=== PATIENT | male | born 1935 | race Caucasian/White ===

== ENCOUNTER 2018-05-13 09:08 | Day surgery (SDC) | payer OTHER, SELFPAY ==
[2018-05-01 09:42] VITALS: BMI 27.2
[2018-05-13] VITALS (11 sets, daily range): BP systolic 104–159; BP diastolic 60–100; PULSE 52–81; RESP 10–25; TEMP 35.9–36.4; O2SAT 93–100; BMI 27.2
--- NOTE | 2018-05-13 | DI.RAD.S_ITS ---
PROCEDURE: XR LUMBAR SPINE 1V INDICATIONS: MICRODISCECTOMY TECHNIQUE: Single views of the lumbar spine were acquired. COMPARISON: None. FINDINGS: Intraoperative spot fluoroscopic view demonstrating surgical instrument projecting in the posterior paraspinal soft tissues at the level of the L3-L4 disc space. Dictated by: Miles Menon M.D. on 05/13/2018 at 13:44 Approved by: Miles Menon M.D. on 05/13/2018 at 13:45
[2018-05-13] MEDS: LACTATED RINGERS 1,000 ML 42 ML IV (10:27)
--- NOTE | 2018-05-13 11:07 | PM.PREOP ---
Pre-operative Note Interval Note Pre-op Check: Yes History & Physical Reviewed by Physician, Yes Exam Performed and Yes History & Physical exam performed today by Physician Changes: No
[2018-05-13] MEDS: CLINDAMYCIN 900 MG/50 ML PIGGYBACK 50 MG IV (11:50)
--- NOTE | 2018-05-13 12:21 | SUR.OPER ---
Prone on spine table, head in foam head support, padded chest and pelvic supports, gel pad at knees, lower legs supported by pillows; nipples, genitalia and toes free of pressure, arms secured on foam padded arm boards at <90 degrees abduction. Tape over blanket at thigh secured to table.
[2018-05-13] MEDS: BUPIVACAINE 0.25% W/ EPI VIAL 50 ML INJ (12:41)
--- NOTE | 2018-05-13 13:05 | PM.OP.1 ---
Operative Date/Time/Diagnoses Date of procedure: 05/13/18 Time of procedure: 12:05 Pre-op diagnosis: 1. Lumbar scoliosis 2. L3-4, L4-5 spinal stenosis 3. 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 L3-4 laminectomy 2. L4-5 hemilaminectomy 3. Utilization of microsurgical technique and operating microscope Same procedure as scheduled: Yes Indications: Patient has been having chronic back pain and worsening lumbar radiculopathy. Patient failed multiple conservative management with worsening pain weakness and numbness in her lower extremity. Patient has been having difficulty performing activity of daily living. After discussing risks benefits of treatment options, patient elected proceed with surgery. Surgeon: Mansi Maher New Vehicle Sales Consultant: Jackie Dickinson Click Yes if Unassisted: No Anesthesia Type: General Operative Notes Closure Type: primary Specimen(s): none sent Estimated Blood Loss (mL): 20 Blood products transfused: none Procedure in detail: Patient was seen in the preoperative area. Risks and benefits of the surgery was discussed with the patient. Informed consent was obtained from the patient and placed in the chart. Surgical site was marked. Patient was taken to the operative room. General anesthesia was administered. Prophylactic antibiotic was given to the patient less than 30 min before the incision was made. Patient was placed into a prone position on the [place] table. Patient's back was then prepped and draped in the sterile fashion. Time-out was performed at this time. Using AP and lateral C-arm imaging the interval between L3-4, L4-5 was identified and marked on patient's back. A midline incision was made over the L3-4 L4-5 interval. The fascia was incised in line with skin incision. Dissection was made down to the level of L3 lamina using bovie and a mg. Using microsurgical technique and operating microscope, a L3 laminectomy was performed using a Kerrison rongeur, Leksell rongeur and micro pituitary. Liagamentum flavum was resected at the site of the laminotomy. Either side of the dura was exposed. Bilateral partial facetcomies was performed to further decompress the lateral recess. Attention was then turned to the L4 lamina, by performing a hemilaminectomy. Using Kerrison rongeur and a power drill half of the lamina was resected. The central canal was found to be moderately stenotic. This was decompressed fully after the hemilaminectomy was completed. Bilateral foraminotomies were performed at L4-5 level after the hemilaminectomy at L4 was completed. After the laminectomy was completed, the area medial lateral superior and inferior to the area of the laminectomy and hemilaminectomy was inspected and explored using a micro curette. No other impinging structure was identified. The wound was then irrigated with sterile normal saline. The deep fascia was closed with 1-0 Vicryl. The subcutaneous tissue was closed with 2-0 Vicryl. The skin was closed with amber. Patient tolerated the procedure well. There were no complications. Patient was transferred recovery room in stable condition. Complications: none Condition: stable Disposition: same day surgery Plan for aftercare: D/c home
--- NOTE | 2018-05-13 13:21 | SUR.PHASEI ---
Extremely restless on arrival and voicing not knowing why just that he needs to sit up or put his arm over th rail, etc. It took seven minutes to get a BP. Dr Flores present for behavior.
--- NOTE | 2018-05-13 13:29 | SUR.PHASEI ---
Given nebulized saline to help with tickle in throat and unproductive cough.
--- NOTE | 2018-05-13 14:31 | SUR.PHASEII ---
Germang cdi. Pt reported 1-2/10 surgical pain. lt foot weaker than rt. +pp x2, Lt pp weaker than lt. IV in place. Ice applied. call light within reach. Po intake provided. Family present
--- NOTE | 2018-05-13 17:48 | SUR.PREOP ---
BLE strong, except for Lt chronic foot drop. Drsg cdi. VS stable. IV d/c'd. Pt stood at the bedside, sba without difficulty. Pt discharged
== END 2018-05-13 15:40 | disposition home or self-care (01) ==
LOC: OR 09:14 → AC 13:10
PROVIDERS: PCP Internal Medicine; Visit Provider Orthopaedic Surgery Orthopaedic Surgery of the Spine
PROC: (CPT 63047; principal; 2018-05-13 11:15)
DX: M48.061 Spinal stenosis, lumbar region without neurogenic claudication (principal); M51.16 Intervertebral disc disorders with radiculopathy, lumbar region; M47.26 Other spondylosis with radiculopathy, lumbar region; Z79.01 Long term (current) use of anticoagulants; Z86.73 Personal history of transient ischemic attack (TIA), and cerebral infarction without residual deficits; M19.90 Unspecified osteoarthritis, unspecified site; Z95.0 Presence of cardiac pacemaker
CPT/HCPCS: 63047; 63030; 72020; 76000; J1100; J2405

== ENCOUNTER → 2018-06-21 15:07 | Outpatient (CLI) | payer OTHER, SELFPAY ==
--- NOTE | 2018-06-21 | DI.RAD.S_ITS ---
PROCEDURE: XR CHEST 2V INDICATIONS: PERSISTANT ATRIAL FIBRILLATION TECHNIQUE: 2 views of the chest were acquired. COMPARISON: [facility], , CHEST 1 VIEW, 05/25/2017, 0:14. [facility], , CHEST 2 VIEW, 09/29/2013, 17:19. FINDINGS: Surgical changes and devices: Cardiac pacemaking device and dual chamber leads appear stable over time. Lungs and pleura: No pleural effusions or pneumothorax. Lungs are mildly edematous. Mediastinum: Mediastinal contours are normal. Heart size is normal. Bones and chest wall: No suspicious bony abnormalities. Soft tissues appear unremarkable. IMPRESSION: Mild pulmonary edema pattern, no cardiomegaly seen. Cardiac pacemaking device and dual chamber leads appear normal, stable over time. Dictated by: Tomas Jones M.D. on 06/21/2018 at 15:45 Approved by: Tomas Jones M.D. on 06/21/2018 at 15:45
== END ==
PROVIDERS: PCP Internal Medicine; Visit Provider Internal Medicine Cardiovascular Disease
DX: I48.1 Persistent atrial fibrillation (principal); I27.20 Pulmonary hypertension, unspecified; Z95.0 Presence of cardiac pacemaker
CPT/HCPCS: 71046

== ENCOUNTER → 2018-09-05 13:50 | Outpatient (CLI) | payer OTHER, SELFPAY ==
--- NOTE | 2018-09-05 | DI.CT.S_ITS ---
PROCEDURE: CT CERVICAL SPINE WO CON INDICATIONS: CERVICAL SPINE PAIN, PULMONARY HYPERTENSION TECHNIQUE: Noncontrast 3 mm thick sections acquired from the skull base to the T4 level. Sagittal and coronal reformats were then constructed. For radiation dose reduction, the following was used: automated exposure control, adjustment of mA and/or kV according to patient size. COMPARISON: [facility] [place], [place], XR CERVICAL SPINE 2 OR 3 VIEWS, 08/30/2018, 11:32. FINDINGS: Image quality: Excellent. Bones: No fractures or dislocations. Bilateral facet arthropathy. Severe diffuse disc space narrowing primarily from C4-T1, also involving the upper thoracic spine. Moderate to severe narrowing of the C3-C4 disc space. There are endplate osteophytes and sclerosis as well as cystic change. Trace retrolisthesis of C3 on C4. Heterotopic ossification seen in the posterior paraspinal soft tissues at the level of C6. Diffuse osteopenia. Soft tissues: Prevertebral soft tissues are normal in thickness. No paravertebral hematomas. No apical pneumothoraces. There is suggestion of a subcentimeter right thyroid nodule. Bilateral carotid calcifications. IMPRESSION: Severe multilevel cervical and upper thoracic disc degeneration. Diffuse osteopenia. Multilevel facet arthropathy. Possible, poorly defined right thyroid nodule although this could be better characterized with dedicated thyroid ultrasound. Dictated by: Miles Menon M.D. on 09/05/2018 at 16:25 Approved by: Miles Menon M.D. on 09/05/2018 at 16:34
--- NOTE | 2018-09-10 15:53 | PM.PFT.1 ---
Pulmonary Function Test Referral & Results Date Patient Seen: 09/05/18 Requesting provider: Paco Kimball Indication: I27.20 Results: The spirometry demonstrates an FVC of 2.68 L which is 60% of predicted. The FEV1 was measured at 2.14 L which is 78% of predicted. The FEV1/FVC ratio was 80 which is 112% of predicted. Following the administration of bronchodilator there was no appreciable change. Lung volumes show an SVC of 2.93 L which is 67% of predicted. The diffusing capacity was measured at 13.80 which is 42% of predicted. No hemoglobin value was provided, so no correction for potential anemia could be made, if appropriate. The maximum voluntary ventilation was slightly reduced Interpretation: This study demonstrates mild obstructive lung disease without evidence of benefit following bronchodilator There is also [id number] restrictive lung disease present based on reduction lung volumes There is also a significant reduction in diffusing capacity suggesting significant disease at the capillary alveolar level Altogether this is consistent with a diagnosis of COPD
== END ==
PROVIDERS: Family Provider Internal Medicine; PCP Internal Medicine; Visit Provider Orthopaedic Surgery Orthopaedic Surgery of the Spine
DX: M50.321 Other cervical disc degeneration at C4-C5 level (principal); I27.20 Pulmonary hypertension, unspecified; J44.9 Chronic obstructive pulmonary disease, unspecified; M48.02 Spinal stenosis, cervical region; M47.812 Spondylosis without myelopathy or radiculopathy, cervical region; M85.89 Other specified disorders of bone density and structure, multiple sites
CPT/HCPCS: 72125; 94060; 94726; 94729

== ENCOUNTER 2019-10-02 10:03 | Emergency (ER) | payer OTHER, SELFPAY ==
[2019-10-02] VITALS (7 sets, daily range): BP systolic 124–164; BP diastolic 64–97; PULSE 60–95; RESP 12–24; TEMP 36.2; O2SAT 96–98; BMI 27.7
--- NOTE | 2019-10-02 10:26 | DI.RAD.S_ITS ---
PROCEDURE: XR CHEST 1V INDICATIONS: chest pain TECHNIQUE: One view of the chest was acquired. COMPARISON: [facility], CR, XR CHEST 2V, 06/21/2018, 14:49. FINDINGS: Surgical changes and devices: Dual-lead cardiac pacer Lungs and pleura: Low lung volumes with scattered subsegmental atelectasis/scarring. No pleural effusions or pneumothorax. Mediastinum: Mediastinal contours appear normal. Heart size is normal. Bones and chest wall: No suspicious bony lesions. Overlying soft tissues appear unremarkable. IMPRESSION: Low lung volumes with scattered subsegmental atelectasis/scarring. Dictated by: Miles Menon M.D. on 10/02/2019 at 11:13 Approved by: Miles Menon M.D. on 10/02/2019 at 11:15
[2019-10-02 10:39] LABS: Add Manual Diff / Slide Review NO; Basophils Absolute Auto 100 /uL (0-100); Basophils Percent Auto 1.2 % (0-2); Eosinophils Absolute Auto 200 /uL (0-450); Eosinophils Percent Auto 2.9 % (2-4); Hematocrit 41.3 % (41-53); Hemoglobin 13.9 g/dL (13.5-17.5); INR 3.1 (0.9-1.3); Lymphocytes Absolute Auto 1300 /uL (1100-4500); Lymphocytes Percent Auto 19.7 % (25-40); Mean Corpuscular HGB Conc 33.6 % (30-36); Mean Corpuscular Hemoglobin 30.6 PG (26-34); Monocytes Absolute Auto 900 /uL (0-900); Monocytes Percent Auto 13.3 % (3-14); Neutrophils Absolute Auto 4100 /uL (1500-7000); Neutrophils Percent Auto 62.9 % (50-75); Platelet Count 189 X10^3/uL (150-400); Red Blood Cell Count 4.54 X10^6/uL (4.5-5.9); White Blood Cell Count 6.5 X10^3/uL (4.5-11.0)
[2019-10-02 10:42] LABS: PTT Partial Thromboplastin Tim 49 SECONDS (26.4-36.2)
[2019-10-02 10:43] LABS: Alanine Aminotransferase 27 IU/L (<50); Albumin 4.2 g/dL (3.5-5.0); Albumin Globulin Ratio 1.4 (1.0-2.8); Alkaline Phosphatase 114 U/L (38-126); Aspartate Aminotransferase 34 IU/L (17-59); Bilirubin Total 0.7 mg/dL (0.2-1.3); Blood Urea Nitrogen 16 mg/dL (9-20); Calcium 9.6 mg/dL (8.4-10.2); Carbon Dioxide 28 mmol/L (22-32); Chloride 99 mmol/L (98-107); Creatine Kinase 22 U/L (55-170); Estimated Glomerular Filt Rate > 60.0 mL/min (>60); Glucose 113 mg/dL (80-110); HEMOLYSIS 17 (0-50); Lipase 156 U/L (23-300); Potassium 4.7 mmol/L (3.4-5.1); Sodium 135 mmol/L (137-145); Total Protein 7.2 g/dL (6.3-8.2)
[2019-10-02 10:55] LABS: NT-proBNP (BNP-Adult 18+) 2020 pg/mL (<450); Troponin I < 0.012 ng/mL (0.01-0.034)
--- NOTE | 2019-10-02 12:43 | ED.ARRPALP ---
HPI - Arrhythmia/Palpitations General Chief Complaint: Arrhythmia/Palpitations Stated Complaint: SOB/high pulse rate Time Seen by Provider: 10/02/19 12:15 Source: patient Mode of arrival: Ambulatory History of Present Illness HPI narrative: Chief complaint: Shortness of breath History of present illness: The patient is an 84-year-old male who states that he has developed progressively worsening shortness of breath and dyspnea on exertion over the past 3 months prior to admission. He states that he can become very short of breath walking up a flight of stairs. He states this morning he walked up a flight of stairs 3 different times with minimal shortness of breath then the 4th time he became acutely short of breath and did not think that he would make it to the top. He states that he has a history of atrial fibrillation and is on metoprolol to control the rapid heart rate and has a pacemaker that prevents him from going to slow. He does not have a defibrillator. He has had no palpitations. He denies a history of high blood pressure chest pain. He has had intermittent shortness of breath. He denies a history of kidney failure. He states that walking from the parking lot to the emergency department caused him to develop shortness of breath with painting. He states that his oxygen saturation never dropped below 98%. He admits to a mild stroke 8-10 years ago from his atrial fibrillation at which time he was placed on warfarin. 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 He denies a history of COPD myocardial infarction congestive heart failure hypertension or diabetes mellitus. He admits to shortness of breath but denies any cough chest pain. Periodically he has palpitations. He has never had phlebitis or pulmonary embolism. He has had no significant abdominal pain nausea vomiting diarrhea. Bowel sounds are normal. He denies any urinary symptoms at this time. Related Data Home Medications Medication Instructions Recorded Confirmed fluorouracil [Efudex] 1 barbra TOPICAL PRN PRN #0 04/30/17 05/01/18 glucosamine king 2KCl-chondroit 1 cap PO DAILY #0 04/30/17 05/01/18 [Glucosamine Sulf-Chondroitin] multivitamin [Multiple Vitamins] 1 tab PO QDAY #0 04/30/17 05/01/18 melatonin 5 mg PO QHS PRN 05/01/18 05/13/18 metoprolol succinate 50 mg PO BEDTIME 05/01/18 05/13/18 omeprazole 20 mg PO BID 05/01/18 05/13/18 warfarin [Coumadin] 5 mg PO SEEINSTR 05/01/18 05/13/18 Previous Rx's Medication Instructions Recorded hydrocodone-acetaminophen [[place]] 1 tab PO Q4-6H PRN #20 tab 05/13/18 furosemide [Lasix] 10 mg PO QAM #10 tab 10/02/19 nitroglycerin 0.3 mg SL Q5-15M PRN #25 tab 10/02/19 potassium chloride 8 meq PO DAILY #10 cap 10/02/19 Allergies Allergy/AdvReac Type Severity Reaction Status Date / Time sulfite [SULFITE] Allergy Severe from foods Verified 10/02/19 10:25 Penicillins [PENICILLINS] Allergy Mild Rash Verified 10/02/19 10:25 Review of Systems Review of Systems Narrative: The patient's review of systems were all negative except for those mentioned in the history of present illness. Patient History Medical History (Updated 10/02/19 @ 13:05 by Vj Pemberton MD) Afib (Acute) BCC (basal cell carcinoma of skin) (Acute) Bilateral lower extremity edema (Acute) Closed nondisplaced fracture of pelvis (Acute) CVA (cerebral vascular accident) (Acute) Diabetes (Acute) Easy bruisability (Acute) Fragile skin (Acute) GERD (gastroesophageal reflux disease) (Acute) Left foot drop (Acute) Mixed hyperlipidemia (Acute) Numbness (Acute) Pacemaker (Acute) Pneumonia (Acute) Scoliosis (Acute) Sleep disorder (Acute) Surgical History Hx of arthroscopy of shoulder (Acute) Hx of hernia repair (Acute) Hx of tonsillectomy (Acute) Status post bilateral cataract extraction (Acute) Social History household members: spouse Smoking Status: Never smoker alcohol intake: current Smoking Status: Never smoker alcohol intake frequency: 0-2 drinks per day Alcohol type: hard liquor Substance Use Type: does not use Exam Narrative Exam Narrative: PHYSICAL EXAM: CONSTITUTIONAL: Awake, Alert, Oriented, Coherent, Cooperative in NAD. Does not appear toxic or ill. The patient was very pleasant HEAD: AT/NC EENT: PERRL, FROM of eyes, no discharge, no nystagmus Oral mucosa is moist and pink, posterior pharynx is without erythema or exudate. NECK: Supple, no obvious JVD, Trachea is midline without stridor, SPINE: No gross deformity, no palpable tenderness of the cervical, thoracic, lumbar or sacral spine. No CVA tenderness. THORAX: No deformity, retractions, chest wall tenderness, LUNGS: Patient's breath sounds are decreased bilaterally but were clear without any inspiratory crackles wheezes or rhonchi appreciated. HEART: Irregular rhythm without an appreciable murmur. ABDOMEN: Soft, non-tender, normal bowel sounds without guarding, rebound, rigidity or palpable mass EXTREMITIES: 1+ pitting edema bilaterally with no pop calf tenderness or cyanosis. SKIN: No rash, bruising, petechiae or purpura. NEURO: Awake, alert, oriented, conversive, cranial nerves II-XII are symmetrical, moves all 4 extremities and is ambulatory Initial Vital Signs Initial Vital Signs: Vital Signs Temperature 97.2 F L 10/02/19 10:06 Pulse Rate 95 H 10/02/19 10:06 Respiratory Rate 16 10/02/19 10:06 Blood Pressure 164/97 H 10/02/19 10:06 Pulse Oximetry 98 10/02/19 10:06 Course Course Course Narrative: The patient's chest x-ray did not reveal any acute cardiopulmonary pathology or pulmonary edema. There was cardiomegaly present. The patient's BNP was elevated which can be secondary to pulmonary hypertension. The patient has mild peripheral edema which may be secondary to right-sided heart failure. The patient was advised to follow-up with his primary care physician and clothing pattern preparer for a possible echocardiogram. The patient primarily is complaining of shortness of breath and dyspnea on exertion. The patient was advised that as he checks his legs for pitting edema he will take 20 mg of Lasix and limit his fluid intake to 2 L per day. And if he has pitting edema of his legs he will take the Lasix and 20 demetris quit evidence of potassium chloride. If there is no pitting he will not take the Lasix. The patient was given a limited number of potassium and Lasix to see whether or not this helps him with his dyspnea. He was also given a prescription for nitroglycerin. He was advised to take this when he develops the shortness of breath but to be sitting down or lying down when he takes the medicine. He was advised to keep a record of the results. His dyspnea on exertion may actually be an anginal equivalent. Orders Ordered: ED Orders 10/02/19 10:15 BNP [NT-proBNP (BNP-Adult 18+)] Stat Complete Blood Count AUTO DIFF Stat Comprehensive Metabolic Panel Stat Lipase Stat Partial Thromboplastin Time Stat Prothrombin Time INR Stat Troponin & CK Cardiac Panel Stat 10/02/19 10:26 XR chest 1V Stat EKG-12 Lead Stat Vital Signs Vital signs: Vital Signs - 8 hr 10/02/19 10:06 10/02/19 11:30 10/02/19 12:00 Temperature 97.2 F L Pulse Rate 95 H 62 60 Respiratory Rate 16 12 17 Blood Pressure 164/97 H Blood Pressure [Left Arm] 130/64 134/74 Pulse Oximetry 98 98 98 MDM - Arrhythmia/Palpitations Medical Records Attestation: I reviewed the patient's medical records. Lab Data Attestation: I reviewed the patient's lab results. Result diagrams: 10/02/19 10:15 10/02/19 10:15 Labs: Lab Results 10/02/19 10/02/19 10/02/19 Range/Units 10:15 10:15 10:15 WBC 6.5 (4.5-11.0) X10^3/uL RBC 4.54 (4.5-5.9) X10^6/uL Hgb 13.9 (13.5-17.5) g/dL Hct 41.3 (41-53) % MCV 91.0 (80-100) fL MCH 30.6 (26-34) PG MCHC 33.6 (30-36) % RDW 15.0 H (11.6-14.8) % Plt Count 189 (150-400) X10^3/uL Neut % (Auto) 62.9 (50-75) % Lymph % (Auto) 19.7 L (25-40) % Hubbard % (Auto) 13.3 (3-14) % Eos % (Auto) 2.9 (2-4) % Baso % (Auto) 1.2 (0-2) % Neut # (Auto) 4100 (8582-0646) /uL Lymph # (Auto) 1300 (5640-9615) /uL Hubbard # (Auto) 900 (0-900) /uL Eos # (Auto) 200 (0-450) /uL Baso # (Auto) 100 (0-100) /uL PT 35.0 H (10.1-12.7) SECONDS INR 3.1 H (0.9-1.3) APTT 49 H (26.4-36.2) SECONDS Sodium 135 L (137-145) mmol/L Potassium 4.7 (3.4-5.1) mmol/L Chloride 99 (98-107) mmol/L Carbon Dioxide 28 (22-32) mmol/L BUN 16 (9-20) mg/dL Creatinine 1.00 (0.66-1.25) mg/dL Estimated GFR > 60.0 (>60) mL/min BUN/Creatinine Ratio 16.0 (6-22) Glucose 113 H (80-110) mg/dL Calcium 9.6 (8.4-10.2) mg/dL Total Bilirubin 0.7 (0.2-1.3) mg/dL AST 34 (17-59) IU/L ALT 27 (<50) IU/L Alkaline Phosphatase 114 (38-126) U/L Total Creatine Kinase 22 L (55-170) U/L CK-MB (CK-2) TNP CK-MB (CK-2) Rel Index TNP Troponin I < 0.012 (0.01-0.034) ng/mL NT-Pro-B Natriuret Pep 2020 H (<450) pg/mL Total Protein 7.2 (6.3-8.2) g/dL Albumin 4.2 (3.5-5.0) g/dL Globulin 3.0 (1.7-4.1) g/dL Albumin/Globulin Ratio 1.4 (1.0-2.8) Lipase 156 (23-300) U/L Urine Dip Bedside Urine Glucose Negative Bedside Urine Bilirubin - Negative Bedside Urine Ketone - Negative Urine Specific [place] 1.015 Bedside Urine Occult Blood - Negative Bedside Urine pH 6.0 Bedside Urine Protein - Negative Bedside Urine Urobilinogen - Negative Bedside Urine Nitrite - Negative Bedside Urine Leukocytes - Negative Esterase ECG Data Attestation: I personally reviewed and interpreted this ECG as follows: Interpretation: The patient's EKG obtained on October 02 at 10: 12:33 p.m. reveals a paced ventricular rhythm with a rate of 81. There are no P waves. QRS is 79 milliseconds duration. QTC is 395 milliseconds with normal axis. The patient has an occasional PVC. There are no acute diagnostic ST segment changes or T-waves. The ST and T-wave changes that are evident are secondary to the paced rhythm. Discharge Plan Departure Patient Disposition: Home Clinical Impression: Dyspnea on exertion, Mild peripheral edema Discharge Date/Time: 10/02/19 13:31 Instructions: DI for Shortness of Breath, DI for Peripheral Edema -- Bilateral Activity Restrictions/Additional Instructions: 1. When you develop acute shortness of breath while exerting yourself sit down and take a nitro tablet and see whether not her shortness of breath improves. 2. After you have been up and around and you are having increased frequency of shortness of breath and your legs pit like a pH when you press on the tibia take the tablet of Lasix as prescribed and the potassium tablet. Take the potassium tablet only when taking Lasix. Do this for the next week to 10 days and see whether not this helps her shortness of breath. If you developed chest pressure and chest pain that radiates to your neck jaw or shoulder or arm you need to be seen and re-evaluated in the emergency department. Otherwise follow-up with your clothing pattern preparer you may need to have a repeat echocardiogram performed to check the function of your heart. Prescriptions: New nitroglycerin 0.3 mg tablet, sublingual 0.3 mg SL Q5-15M PRN (Reason: chest pain) Qty: 25 RF: 0 furosemide [Lasix] 20 mg tablet 10 mg PO QAM Qty: 10 RF: 0 potassium chloride 8 mEq capsule, extended release 8 meq PO DAILY Qty: 10 RF: 0 No Action multivitamin [Multiple Vitamins] 1 EACH tablet 1 tab PO QDAY Qty: 0 RF: 0 glucosamine king 2KCl-chondroit [Glucosamine Sulf-Chondroitin] 500-400 mg Capsule 1 cap PO DAILY Qty: 0 RF: 0 fluorouracil [Efudex] 5 % cream 1 barbra Topical PRN PRN (Reason: skin cancer lesions) Qty: 0 RF: 0 warfarin [Coumadin] 3 MG tablet 5 mg PO SEEINSTR RF: 0 metoprolol succinate 50 mg Tablet Extended Release 24 Hr 50 mg PO BEDTIME RF: 0 omeprazole 20 mg Tablet,Delayed Release (Dr/Ec) 20 mg PO BID RF: 0 melatonin 5 MG tablet 5 mg PO QHS PRN (Reason: Sleep) RF: 0 hydrocodone-acetaminophen [[place]] 5-325 mg tablet 1 tab PO Q4-6H PRN (Reason: pain) Qty: 20 RF: 0 Referrals: Uli Antunez MD [Primary Care Provider] -
== END 2019-10-02 13:31 | disposition home or self-care (01) ==
PROVIDERS: Emergency Provider Emergency Medicine; Family Provider Internal Medicine; PCP Internal Medicine
DX: R06.09 Other forms of dyspnea (principal); R60.9 Edema, unspecified
CPT/HCPCS: 36415; 71045; 80053; 81003; 82550; 83690; 83880; 84484; 85025; 85610; 85730; 93005; 99284; 99285

== ENCOUNTER 2021-02-01 08:50 | Emergency (ER) | payer OTHER, SELFPAY ==
[2021-02-01] VITALS (9 sets, daily range): BP systolic 130–138; BP diastolic 70–93; PULSE 62–90; RESP 13–27; TEMP 36.5; O2SAT 97–98; BMI 27.2
--- NOTE | 2021-02-01 09:13 | ED_ITS ---
HPI - SOB/Dyspnea General Chief Complaint: Shortness of Breath/Dyspnea Stated Complaint: SOB on & off for months.Severe for 2 days Time Seen by Provider: 02/01/21 09:08 Source: patient and family () Limitations: no limitations History of Present Illness HPI Narrative: This is an 85-year-old male who comes emergency department with complaint of shortness of breath that has been slowly progressive over the last several months and then became acutely worse over the last 2 days. Patient states that he did notice that was typically just was tenderness activity but intermittently. He has noticed it has become increasing with activity. Any been today sometimes at rest. He states he noticed particularly sleeping. He does not appreciate any orthopnea but does know when he tries to rest at night he feels like he wakes up gasping for breath. He has a pulse oximeter at home she has been checking and has been 98%. He denies any chest pressure with these episodes. He denies any lightheadedness or near syncope or syncope. He denies any diaphoresis. He denies any nausea or vomiting. He does appreciate some increased swelling of bilateral lower extremities in the last 24 hours. Patient denies any abdominal pain, no issues with bowel movements or urination. He is on warfarin for atrial fibrillation, he takes metoprolol daily. He does have a pacemaker he does not believe he has any cardiac stents. He is on omeprazole. He states his Lasix was 20 mg daily and was decreased to 20 mg Sunday, Sunday and Sunday approximately 3 months ago. He has also been told 1 of his valves does not work well, he states ?it's the bottom 1? but that that has been stable. He states he has a prior hernia repair with mesh approximately 20 years ago and a prior tonsillectomy in the 1930s. No tobacco, no remote tobacco use. He d rinks 1 alcoholic drink daily. No illicit drugs. Patient's primary care is Dr. 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 Tavares. Related Data Home Medications Medication Instructions Recorded Confirmed fluorouracil [Efudex] 1 barbra TOPICAL PRN PRN #0 04/30/17 05/01/18 glucosamine king 2KCl-chondroit 1 cap PO DAILY #0 04/30/17 05/01/18 [Glucosamine Sulf-Chondroitin] multivitamin [Multiple Vitamins] 1 tab PO QDAY #0 04/30/17 05/01/18 melatonin 5 mg PO QHS PRN 05/01/18 05/13/18 metoprolol succinate 50 mg PO BEDTIME 05/01/18 05/13/18 omeprazole 20 mg PO BID 05/01/18 05/13/18 warfarin [Coumadin] 5 mg PO SEEINSTR 05/01/18 05/13/18 Previous Rx's Medication Instructions Recorded hydrocodone-acetaminophen [[place]] 1 tab PO Q4-6H PRN #20 tab 05/13/18 furosemide [Lasix] 10 mg PO QAM #10 tab 10/02/19 nitroglycerin 0.3 mg SL Q5-15M PRN #25 tab 10/02/19 potassium chloride 8 meq PO DAILY #10 cap 10/02/19 Allergies Allergy/AdvReac Type Severity Reaction Status Date / Time sulfite [SULFITE] Allergy Severe from foods Verified 02/01/21 09:08 Penicillins [PENICILLINS] Allergy Mild Rash Verified 02/01/21 09:08 Review of Systems Review of Systems ROS Unobtainable: All systems reviewed & are unremarkable except as noted in HPI and below Patient History Medical History Afib BCC (basal cell carcinoma of skin) Bilateral lower extremity edema Closed nondisplaced fracture of pelvis CVA (cerebral vascular accident) Diabetes Easy bruisability Fragile skin GERD (gastroesophageal reflux disease) Left foot drop Mixed hyperlipidemia Numbness Pacemaker Pneumonia Scoliosis Sleep disorder Surgical History Hx of arthroscopy of shoulder Hx of hernia repair Hx of tonsillectomy Status post bilateral cataract extraction Social History household members: spouse Smoking Status: Never smoker alcohol intake: current Smoking Status: Never smoker alcohol intake frequency: 0-2 drinks per day Alcohol type: hard liquor Substance Use Type: does not use Exam Narrative Exam Narrative: GENERAL: Alert and oriented x three, well-appearing elderly male in mild distress. HEENT: Head normocephalic, atraumatic, EOMI, pupils reactive, face symmetric, moist mucous membranes NECK: Supple, full range of motion CARDIOVASCULAR: Regular rate and rhythm without murmurs, rubs or gallops. Mild bilateral lower extremity edema. No JVD. RESPIRATORY: Breath sounds equal bilaterally, no wheezes rales or rhonchi. ABDOMEN: Soft, nontender. Normoactive bowel sounds all 4 quadrants. No guarding or rebound, rigidity, no mass : No CVA tenderness EXTREMITIES: Normal range of motion. Neurovascularly intact NEUROLOGICAL: Cranial nerves II through XII grossly intact. Moving all extremities SKIN: Warm, dry, no petechiae, no rashes or lesions. Initial Vital Signs Initial Vital Signs: Vital Signs Temperature 97.7 F 02/01/21 08:51 Pulse Rate 90 02/01/21 08:51 Respiratory Rate 20 02/01/21 08:51 Blood Pressure 138/70 02/01/21 08:51 Pulse Oximetry 97 02/01/21 08:51 Course Orders Ordered: ED Orders 02/01/21 10:10 Partial Thromboplastin Time Stat Prothrombin Time INR Stat Discontinued Medications Furosemide (Furosemide 40 Mg/4 Ml Vial) 40 mg IV NOW ONE Stop: 02/01/21 09:26 Last Admin: 02/01/21 09:36 Dose: 40 mg Documented by: NASH Vital Signs Vital signs: Vital Signs - 8 hr 02/01/21 11:20 Pulse Oximetry 98 MDM - SOB/Dyspnea Lab Data Attestation: I reviewed the patient's lab results. Result diagrams: 02/01/21 09:05 02/01/21 09:05 Labs: Lab Results 02/01/21 02/01/21 02/01/21 Range/Units 09:05 09:05 09:05 WBC 6.4 (4.5-11.0) X10^3/uL RBC 4.27 L (4.5-5.9) X10^6/uL Hgb 13.1 L (13.5-17.5) g/dL Hct 39.7 L (41-53) % MCV 93.2 (80-100) fL MCH 30.6 (26-34) PG MCHC 32.9 (30-36) % RDW 14.5 (11.6-14.8) % Plt Count 155 (150-400) X10^3/uL Neut % (Auto) 72.5 (50-75) % Lymph % (Auto) 11.9 L (25-40) % Davis % (Auto) 11.0 (3-14) % Eos % (Auto) 3.7 (2-4) % Baso % (Auto) 0.9 (0-2) % Neut # (Auto) 4700 (2214-8855) /uL Lymph # (Auto) 800 L (1500-6976) /uL Davis # (Auto) 700 (0-900) /uL Eos # (Auto) 200 (0-450) /uL Baso # (Auto) 100 (0-100) /uL PT (10.1-12.7) SECONDS INR (0.9-1.3) APTT (26.4-36.2) SECONDS Sodium 130 L (137-145) mmol/L Potassium 4.6 (3.4-5.1) mmol/L Chloride 98 (98-107) mmol/L Carbon Dioxide 25 (22-32) mmol/L BUN 17 (9-20) mg/dL Creatinine 0.80 (0.66-1.25) mg/dL Estimated GFR > 60.0 (>60) mL/min BUN/Creatinine Ratio 21.3 (6-22) Glucose 135 H (80-110) mg/dL Lactate 1.8 (0.7-2.1) mmol/L Calcium 9.6 (8.4-10.2) mg/dL Magnesium (1.6-2.3) mg/dL Total Bilirubin 0.9 (0.2-1.3) mg/dL AST 38 (17-59) IU/L ALT 26 (<50) IU/L Alkaline Phosphatase 120 (38-126) U/L Total Creatine Kinase (55-170) U/L CK-MB (CK-2) CK-MB (CK-2) Rel Index Troponin I (0.01-0.034) ng/mL NT-Pro-B Natriuret Pep (<450) pg/mL Total Protein 6.8 (6.3-8.2) g/dL Albumin 3.8 (3.5-5.0) g/dL Globulin 3.0 (1.7-4.1) g/dL Albumin/Globulin Ratio 1.3 (1.0-2.8) SARS-CoV-2 (PCR) (Negative) 02/01/21 02/01/21 02/01/21 Range/Units 09:05 09:05 09:33 WBC (4.5-11.0) X10^3/uL RBC (4.5-5.9) X10^6/uL Hgb (13.5-17.5) g/dL Hct (41-53) % MCV (80-100) fL MCH (26-34) PG MCHC (30-36) % RDW (11.6-14.8) % Plt Count (150-400) X10^3/uL Neut % (Auto) (50-75) % Lymph % (Auto) (25-40) % Davis % (Auto) (3-14) % Eos % (Auto) (2-4) % Baso % (Auto) (0-2) % Neut # (Auto) (7769-3642) /uL Lymph # (Auto) (5530-0959) /uL Davis # (Auto) (0-900) /uL Eos # (Auto) (0-450) /uL Baso # (Auto) (0-100) /uL PT (10.1-12.7) SECONDS INR (0.9-1.3) APTT (26.4-36.2) SECONDS Sodium (137-145) mmol/L Potassium (3.4-5.1) mmol/L Chloride (98-107) mmol/L Carbon Dioxide (22-32) mmol/L BUN (9-20) mg/dL Creatinine (0.66-1.25) mg/dL Estimated GFR (>60) mL/min BUN/Creatinine Ratio (6-22) Glucose (80-110) mg/dL Lactate (0.7-2.1) mmol/L Calcium (8.4-10.2) mg/dL Magnesium 2.2 (1.6-2.3) mg/dL Total Bilirubin (0.2-1.3) mg/dL AST (17-59) IU/L ALT (<50) IU/L Alkaline Phosphatase (38-126) U/L Total Creatine Kinase < 20 L (55-170) U/L CK-MB (CK-2) TNP CK-MB (CK-2) Rel Index TNP Troponin I < 0.012 (0.01-0.034) ng/mL NT-Pro-B Natriuret Pep 2360 H (<450) pg/mL Total Protein (6.3-8.2) g/dL Albumin (3.5-5.0) g/dL Globulin (1.7-4.1) g/dL Albumin/Globulin Ratio (1.0-2.8) SARS-CoV-2 (PCR) Negative (Negative) 02/01/21 Range/Units 10:10 WBC (4.5-11.0) X10^3/uL RBC (4.5-5.9) X10^6/uL Hgb (13.5-17.5) g/dL Hct (41-53) % MCV (80-100) fL MCH (26-34) PG MCHC (30-36) % RDW (11.6-14.8) % Plt Count (150-400) X10^3/uL Neut % (Auto) (50-75) % Lymph % (Auto) (25-40) % Davis % (Auto) (3-14) % Eos % (Auto) (2-4) % Baso % (Auto) (0-2) % Neut # (Auto) (6363-1184) /uL Lymph # (Auto) (4336-5437) /uL Davis # (Auto) (0-900) /uL Eos # (Auto) (0-450) /uL Baso # (Auto) (0-100) /uL PT 26.9 H (10.1-12.7) SECONDS INR 2.4 H (0.9-1.3) APTT 48 H (26.4-36.2) SECONDS Sodium (137-145) mmol/L Potassium (3.4-5.1) mmol/L Chloride (98-107) mmol/L Carbon Dioxide (22-32) mmol/L BUN (9-20) mg/dL Creatinine (0.66-1.25) mg/dL Estimated GFR (>60) mL/min BUN/Creatinine Ratio (6-22) Glucose (80-110) mg/dL Lactate (0.7-2.1) mmol/L Calcium (8.4-10.2) mg/dL Magnesium (1.6-2.3) mg/dL Total Bilirubin (0.2-1.3) mg/dL AST (17-59) IU/L ALT (<50) IU/L Alkaline Phosphatase (38-126) U/L Total Creatine Kinase (55-170) U/L CK-MB (CK-2) CK-MB (CK-2) Rel Index Troponin I (0.01-0.034) ng/mL NT-Pro-B Natriuret Pep (<450) pg/mL Total Protein (6.3-8.2) g/dL Albumin (3.5-5.0) g/dL Globulin (1.7-4.1) g/dL Albumin/Globulin Ratio (1.0-2.8) SARS-CoV-2 (PCR) (Negative) Imaging Data Chest x-ray: Radiologist's Impression: [place] [id number] [place] [id number] ReportSigned Patient: Ajay Garcia AMR#: [id number]: 5Acct:[id number]/Sex: 85 / MDate of Service: 02/01/21Loc: EDAccession Number: [id number] Procedure: XR chest 1V Ordering Provider: Amie Frias D.O. PROCEDURE: XR CHEST 1V INDICATIONS: sob, ? chf TECHNIQUE: One view of the chest was acquired. COMPARISON: [facility], CR, XR CHEST 2V, 06/21/2018, 14:49. [facility], CR, XR CHEST 1V, 10/02/2019, 10:29. FINDINGS: Surgical changes and devices: Left chest wall dual lead pacemaker redemonstrated with leads projecting over the right atrium and right ventricle. Lungs and pleura: There are low lung volumes. Mild pulmonary vascular prominence may reflect vascular crowding or mild edema. Linear opacities medially in the lung bases likely represent atelectasis. No pleural effusions or pneumothorax. Mediastinum: Mediastinal contours appear unchanged. Heart size is mildly enlarged. Bones and chest wall: No suspicious bony lesions. Overlying soft tissues appear unremarkable. IMPRESSION: 1. Low lung volumes with pulmonary vascular prominence which may reflect mild edema or vascular crowding. 2. Linear medial opacities in the lung bases likely represent atelectasis, but may also reflect consolidation or aspiration. Dictated by: Gilberto Horton M.D. on 02/01/2021 at 9:45 Approved by: Gilberto Horton M.D. on 02/01/2021 at 9:51 ECG Data Attestation: I personally reviewed and interpreted this ECG as follows: Prior ECG tracings: available for review Interpretation: AFib with frequent PVCs, rate of 71, QRS is 78 QTC of 436. No ST elevation depression appreciated. Patient has prior EKG from 10/02/2019. MDM Narrative Medical decision making narrative: Male with increasing shortness of breath and exertional dyspnea that has become worse and now is dyspnea even without exertion. Patient did have his Lasix decreased several months ago and noted that symptoms started somewhat around this time frame. He has also had increasing swelling in his lower extremities. Patient does have a cardiac history. He has a pacemaker which appears to be affective today with no obvious acute changes. Troponin is negative but BNP is elevated in the 2000 range. And chest x-ray does show changes consistent with pulmonary. Anemic but without any major changes his hemoglobin is 13. INR is therapeutic at 2.4. Hyponatremia but no other electrolyte abnormalities with normal renal function. Patient's vitals are stable here in the department he was given a dose of Lasix. On ambulatory pulse ox is 98%. Patient did have some good urine output. Plan increase his Lasix to mg daily for the next 5 days. Him follow up with his primary care or research greenhouse supervisor for recheck and possibly echo. Discussed all these findings with the patient and his all questions were answered. Discharge Plan Departure Patient Disposition: Home Clinical Impression: CHF (congestive heart failure) Instructions: DI for Heart Failure Activity Restrictions/Additional Instructions: Follow up with your physician or research greenhouse supervisor in the next 2-3 days for recheck. Call for an appointment today. Increase your lasix to 40mg daily (2 tabs) x 5 days. I would take an extra potassium pill daily for the next five days. You may continue your home medications as prescribed. Your labs, examination and history today reflect changes consistent with congestive heart failure and fluid overload. I would discuss with your physician you may need to have a repeat ECHO or ultrasound of your heart to check the function. Please return for worsening shortness of breath, new chest pain or pressure, lightheadedness or passing out, fevers greater 100.4 F coughing up blood or productive sputum, worsening swelling in her extremities or other new or concerning symptoms. Prescriptions: No Action multivitamin [Multiple Vitamins] 1 EACH tablet 1 tab PO QDAY Qty: 0 RF: 0 glucosamine king 2KCl-chondroit [Glucosamine Sulf-Chondroitin] 500-400 mg Capsule 1 cap PO DAILY Qty: 0 RF: 0 fluorouracil [Efudex] 5 % cream 1 barbra Topical PRN PRN (Reason: skin cancer lesions) Qty: 0 RF: 0 warfarin [Coumadin] 3 MG tablet 5 mg PO SEEINSTR RF: 0 metoprolol succinate 50 mg Tablet Extended Release 24 Hr 50 mg PO BEDTIME RF: 0 omeprazole 20 mg Tablet,Delayed Release (Dr/Ec) 20 mg PO BID RF: 0 melatonin 5 MG tablet 5 mg PO QHS PRN (Reason: Sleep) RF: 0 hydrocodone-acetaminophen [[place]] 5-325 mg tablet 1 tab PO Q4-6H PRN (Reason: pain) Qty: 20 RF: 0 nitroglycerin 0.3 mg tablet, sublingual 0.3 mg SL Q5-15M PRN (Reason: chest pain) Qty: 25 RF: 0 furosemide [Lasix] 20 mg tablet 10 mg PO QAM Qty: 10 RF: 0 potassium chloride 8 mEq capsule, extended release 8 meq PO DAILY Qty: 10 RF: 0 Referrals: Uli Antunez MD [Primary Care Provider] -
[2021-02-01 09:22] LABS: Add Manual Diff / Slide Review NO; Basophils Absolute Auto 100 /uL (0-100); Basophils Percent Auto 0.9 % (0-2); Eosinophils Absolute Auto 200 /uL (0-450); Eosinophils Percent Auto 3.7 % (2-4); Hematocrit 39.7 % (41-53); Hemoglobin 13.1 g/dL (13.5-17.5); Lymphocytes Absolute Auto 800 /uL (1100-4500); Lymphocytes Percent Auto 11.9 % (25-40); Mean Corpuscular HGB Conc 32.9 % (30-36); Mean Corpuscular Hemoglobin 30.6 PG (26-34); Mean Corpuscular Volume 93.2 fL (80-100); Monocytes Absolute Auto 700 /uL (0-900); Neutrophils Absolute Auto 4700 /uL (1500-7000); Neutrophils Percent Auto 72.5 % (50-75); Platelet Count 155 X10^3/uL (150-400); Red Blood Cell Count 4.27 X10^6/uL (4.5-5.9); Red Cell Distribution Width 14.5 % (11.6-14.8); White Blood Cell Count 6.4 X10^3/uL (4.5-11.0)
--- NOTE | 2021-02-01 09:26 | DI.RAD.S_ITS ---
PROCEDURE: XR CHEST 1V INDICATIONS: sob, ? chf TECHNIQUE: One view of the chest was acquired. COMPARISON: [facility], CR, XR CHEST 2V, 06/21/2018, 14:49. [facility], CR, XR CHEST 1V, 10/02/2019, 10:29. FINDINGS: Surgical changes and devices: Left chest wall dual lead pacemaker redemonstrated with leads projecting over the right atrium and right ventricle. Lungs and pleura: There are low lung volumes. Mild pulmonary vascular prominence may reflect vascular crowding or mild edema. Linear opacities medially in the lung bases likely represent atelectasis. No pleural effusions or pneumothorax. Mediastinum: Mediastinal contours appear unchanged. Heart size is mildly enlarged. Bones and chest wall: No suspicious bony lesions. Overlying soft tissues appear unremarkable. IMPRESSION: 1. Low lung volumes with pulmonary vascular prominence which may reflect mild edema or vascular crowding. 2. Linear medial opacities in the lung bases likely represent atelectasis, but may also reflect consolidation or aspiration. Dictated by: Gilberto Horton M.D. on 02/01/2021 at 9:45 Approved by: Gilberto Horton M.D. on 02/01/2021 at 9:51
[2021-02-01 09:28] LABS: Lactate (Lactic Acid) 1.8 mmol/L (0.7-2.1)
[2021-02-01 09:29] LABS: Alanine Aminotransferase 26 IU/L (<50); Albumin 3.8 g/dL (3.5-5.0); Albumin Globulin Ratio 1.3 (1.0-2.8); Alkaline Phosphatase 120 U/L (38-126); Aspartate Aminotransferase 38 IU/L (17-59); BUN Creatinine Ratio 21.3 (6-22); Bilirubin Total 0.9 mg/dL (0.2-1.3); Blood Urea Nitrogen 17 mg/dL (9-20); Calcium 9.6 mg/dL (8.4-10.2); Carbon Dioxide 25 mmol/L (22-32); Chloride 98 mmol/L (98-107); Estimated Glomerular Filt Rate > 60.0 mL/min (>60); Glucose 135 mg/dL (80-110); HEMOLYSIS < 15 (0-50); Potassium 4.6 mmol/L (3.4-5.1); Sodium 130 mmol/L (137-145); Total Protein 6.8 g/dL (6.3-8.2)
[2021-02-01] MEDS: FUROSEMIDE 40 MG/4 ML VIAL IV (09:36)
[2021-02-01 09:38] LABS: NT-proBNP (BNP-Adult 18+) 2360 pg/mL (<450)
[2021-02-01 09:52] LABS: Creatine Kinase < 20 U/L (55-170); Magnesium 2.2 mg/dL (1.6-2.3)
[2021-02-01 10:00] LABS: COVID19 -Nasal RAPID Negative (Negative)
[2021-02-01 10:05] LABS: Troponin I < 0.012 ng/mL (0.01-0.034)
[2021-02-01 10:28] LABS: INR 2.4 (0.9-1.3); Prothrombin Time 26.9 SECONDS (10.1-12.7)
[2021-02-01 10:30] LABS: PTT Partial Thromboplastin Tim 48 SECONDS (26.4-36.2)
== END 2021-02-01 11:47 | disposition home or self-care (01) ==
PROVIDERS: Emergency Provider Emergency Medicine; Family Provider Internal Medicine; PCP Internal Medicine
DX: I50.9 Heart failure, unspecified (principal); R06.00 Dyspnea, unspecified; M79.89 Other specified soft tissue disorders; Z79.01 Long term (current) use of anticoagulants; Z95.0 Presence of cardiac pacemaker; Z20.822 Contact with and (suspected) exposure to COVID-19
CPT/HCPCS: 36415; 71045; 80053; 82550; 83605; 83735; 83880; 84484; 85025; 85610; 85730; 87635; 93005; 93010; 96374; 99283; 99284; C9803; J1940

== ENCOUNTER 2021-02-06 02:38 | Emergency (ER) | payer OTHER, SELFPAY ==
[2021-02-06 02:45] VITALS: BP 140/76; PULSE 88; RESP 16; TEMP 36.6; O2SAT 97
--- NOTE | 2021-02-06 02:57 | DI.RAD.S_ITS ---
PROCEDURE: XR CHEST 1V INDICATIONS: short of breath TECHNIQUE: One view of the chest was acquired. COMPARISON: [facility], CR, XR CHEST 1V, 10/02/2019, 10:29. [facility], CR, XR CHEST 1V, 02/01/2021, 9:37. FINDINGS: Surgical changes and devices: Pacer Lungs and pleura: Unchanged findings. Low lung volumes with patchy bibasilar atelectasis. No pleural effusions or pneumothorax. Mediastinum: Mediastinal contours appear normal. Heart size is normal. Bones and chest wall: No suspicious bony lesions. Overlying soft tissues appear unremarkable. IMPRESSION: Low lung volumes with patchy bibasilar atelectasis. Comment: Final report is concordant with preliminary interpretation provided by [facility]. Dictated by: Elieser Steen M.D. on 02/06/2021 at 6:34 Approved by: Elieser Steen M.D. on 02/06/2021 at 6:35
[2021-02-06 03:13] LABS: Add Manual Diff / Slide Review NO; Basophils Absolute Auto 100 /uL (0-100); Basophils Percent Auto 1.6 % (0-2); Eosinophils Absolute Auto 400 /uL (0-450); Eosinophils Percent Auto 4.9 % (2-4); Hematocrit 43.6 % (41-53); Hemoglobin 14.4 g/dL (13.5-17.5); Lymphocytes Absolute Auto 1700 /uL (1100-4500); Lymphocytes Percent Auto 23.4 % (25-40); Mean Corpuscular HGB Conc 32.9 % (30-36); Mean Corpuscular Hemoglobin 30.3 PG (26-34); Mean Corpuscular Volume 92.2 fL (80-100); Monocytes Absolute Auto 900 /uL (0-900); Monocytes Percent Auto 12.1 % (3-14); Neutrophils Absolute Auto 4200 /uL (1500-7000); Platelet Count 188 X10^3/uL (150-400); Red Blood Cell Count 4.73 X10^6/uL (4.5-5.9); Red Cell Distribution Width 14.3 % (11.6-14.8); White Blood Cell Count 7.2 X10^3/uL (4.5-11.0)
[2021-02-06 03:20] LABS: INR 3.1 (0.9-1.3); Prothrombin Time 35.1 SECONDS (10.1-12.7)
[2021-02-06 03:22] LABS: PTT Partial Thromboplastin Tim 47 SECONDS (26.4-36.2)
[2021-02-06 03:24] LABS: Alanine Aminotransferase 23 IU/L (<50); Albumin 4.2 g/dL (3.5-5.0); Albumin Globulin Ratio 1.4 (1.0-2.8); Alkaline Phosphatase 120 U/L (38-126); Aspartate Aminotransferase 35 IU/L (17-59); BUN Creatinine Ratio 23.1 (6-22); Bilirubin Total 0.7 mg/dL (0.2-1.3); Blood Urea Nitrogen 25 mg/dL (9-20); Calcium 9.7 mg/dL (8.4-10.2); Carbon Dioxide 27 mmol/L (22-32); Chloride 99 mmol/L (98-107); Creatine Kinase < 20 U/L (55-170); Estimated Glomerular Filt Rate > 60.0 mL/min (>60); Globulin 2.9 g/dL (1.7-4.1); Glucose 101 mg/dL (80-110); HEMOLYSIS < 15 (0-50); Magnesium 2.5 mg/dL (1.6-2.3); Potassium 4.9 mmol/L (3.4-5.1); Sodium 133 mmol/L (137-145); Total Protein 7.1 g/dL (6.3-8.2)
[2021-02-06 03:33] LABS: NT-proBNP (BNP-Adult 18+) 1970 pg/mL (<450)
[2021-02-06 03:35] VITALS: RESP 18; O2SAT 96
[2021-02-06 03:35] LABS: Troponin I < 0.012 ng/mL (0.01-0.034)
--- NOTE | 2021-02-06 03:37 | RT ---
Patient in complaining of not breathing when he lays down to sleep and then getting into a panick after this happens a few times in a row. States he has had a sleep study when he first retired in 2010. Has never had a CPAP, learned to sleep on his side and states that took care of the problem. Now even sleeping on his side, he states that he is waking up gasping because I don't breath. States he has tried sleeping in the recliner with no better results. Advised patient he needed to talk with his primary MD to get a new sleep study done as his fix was no longer working for him. at bedside and conversation explained to her as well.
--- NOTE | 2021-02-06 03:38 | ED.SOB ---
HPI - SOB/Dyspnea General Chief Complaint: Shortness of Breath/Dyspnea Stated Complaint: difficulty breathing Time Seen by Provider: 02/06/21 02:55 Source: patient Mode of arrival: Ambulatory History of Present Illness HPI Narrative: Patient is an 85-year-old male who presents with difficulty breathing when he lies down to go to sleep. He was actually seen evaluated here about 5 days ago for the same. He was found to have congestive heart failure started on Lasix. He says he was doing well and then today he went to lie down and he stopped breathing and could not move him. His Lasix was increased from last emergency department visit on 02/04/2021. He says things have gotten significantly better. He typically does not sleep lying flat he sleeps on his left side which he was able to do eventually. Tonight he tried and it really felt like he could not free so he sat up and came to the emergency department. He denies any heart palpitations no fever chills no worsening or new productive cough. Although his chronic ongoing nonproductive cough. MD Complaint: shortness of breath Onset (ago): month(s) Context: recent illness and other Severity: similar to previous episodes Consistency/Duration: intermittent Relieving factors: other Exacerbating factors: nothing, lying flat and exertion Related Data Home Medications Medication Instructions Recorded Confirmed fluorouracil [Efudex] 1 barbra TOPICAL PRN PRN #0 04/30/17 05/01/18 glucosamine king 2KCl-chondroit 1 cap PO DAILY #0 04/30/17 05/01/18 [Glucosamine Sulf-Chondroitin] multivitamin [Multiple Vitamins] 1 tab PO QDAY #0 04/30/17 05/01/18 melatonin 5 mg PO QHS PRN 05/01/18 05/13/18 metoprolol succinate 50 mg PO BEDTIME 05/01/18 05/13/18 omeprazole 20 mg PO BID 05/01/18 05/13/18 warfarin [Coumadin] 5 mg PO SEEINSTR 05/01/18 05/13/18 Previous Rx's Medication Instructions Recorded hydrocodone-acetaminophen [[place]] 1 tab PO Q4-6H PRN #20 tab 05/13/18 furosemide [Lasix] 10 mg PO QAM #10 tab 10/02/19 nitroglycerin 0.3 mg SL Q5-15M PRN #25 tab 10/02/19 potassium chloride 8 meq PO DAILY #10 cap 10/02/19 Allergies Allergy/AdvReac Type Severity Reaction Status Date / Time sulfite [SULFITE] Allergy Severe from foods Verified 02/01/21 09:08 Penicillins [PENICILLINS] Allergy Mild Rash Verified 02/01/21 09:08 Review of Systems Review of Systems Narrative: GENERAL: Denies chills, fatigue, malaise, fever, sweats, travel HEENT: Denies sinus pain, ear pain, sore throat, difficulty swallowing, neck pain RESPIRATORY: See HPI CARDIOVASCULAR: Denies chest pain, palpitations, orthopnea, edema GASTROINTESTINAL: Denies nausea, vomiting, abdominal pain, diarrhea, constipation, melena. : Denies dysuria, frequency, incontinence, hematuria, urinary retention, flank pain. MUSCULOSKELETAL: Denies weakness, joint pain, or bony pain SKIN: No rash, no erythema, no pruritus NEUROLOGIC: Denies weakness, dizziness, headache, numbness, change in speech, confusion PSYCHIATRIC: No concerning psychosocial issues. 12 point review of systems is negative except for those stated above and HPI Patient History Medical History Afib BCC (basal cell carcinoma of skin) Bilateral lower extremity edema Closed nondisplaced fracture of pelvis CVA (cerebral vascular accident) Diabetes Easy bruisability Fragile skin GERD (gastroesophageal reflux disease) Left foot drop Mixed hyperlipidemia Numbness Pacemaker Pneumonia Scoliosis Sleep disorder Surgical History Hx of arthroscopy of shoulder Hx of hernia repair Hx of tonsillectomy Status post bilateral cataract extraction Social History household members: spouse Smoking Status: Never smoker alcohol intake: current Smoking Status: Never smoker alcohol intake frequency: 0-2 drinks per day Alcohol type: hard liquor Substance Use Type: does not use Exam Initial Vital Signs Initial Vital Signs: Vital Signs Temperature 97.8 F 02/06/21 02:45 Pulse Rate 88 02/06/21 02:45 Respiratory Rate 16 02/06/21 02:45 Blood Pressure 140/76 02/06/21 02:45 Pulse Oximetry 97 02/06/21 02:45 GENERAL: Well-appearing, well-nourished and in no acute distress. HEENT: Head atraumatic,EOMI, pupils reactive, face symmetric, moist mucous membranes CARDIOVASCULAR: Regular rate and rhythm without murmurs, rubs or gallops. RESPIRATORY: Breath sounds equal bilaterally, no wheezes rales or rhonchi. ABDOMEN: Soft, nontender. Normoactive bowel sounds all 4 quadrants. No guarding or rebound. EXTREMITIES: Normal range of motion, no clubbing or edema. Neurovascularly intact NEUROLOGICAL: Alert and oriented x4.Normal gait and speech. Cranial nerves II through XII grossly intact. SKIN: Warm, dry, no laceration, no petechiae, no rashes or lesions. Course Orders Ordered: ED Orders 02/06/21 02:57 Consult to Respiratory Therapy Evaluate & Treat XR chest 1V Stat EKG-12 Lead Stat 02/06/21 03:00 Complete Blood Count AUTO DIFF Stat Comprehensive Metabolic Panel Stat Magnesium Stat NT-proBNP (BNP-Adult 18+) Stat Partial Thromboplastin Time Stat Prothrombin Time INR Stat Troponin & CK Cardiac Panel Stat Vital Signs Vital signs: Vital Signs - 8 hr 02/06/21 02:45 02/06/21 03:35 02/06/21 03:52 Temperature 97.8 F Pulse Rate 88 68 Respiratory Rate 16 18 22 Blood Pressure 140/76 138/82 Pulse Oximetry 97 96 97 MDM - SOB/Dyspnea Lab Data Attestation: I reviewed the patient's lab results. Result diagrams: 02/06/21 03:00 02/06/21 03:00 Labs: Lab Results 02/06/21 02/06/21 02/06/21 Range/Units 03:00 03:00 03:00 WBC 7.2 (4.5-11.0) X10^3/uL RBC 4.73 (4.5-5.9) X10^6/uL Hgb 14.4 (13.5-17.5) g/dL Hct 43.6 (41-53) % MCV 92.2 (80-100) fL MCH 30.3 (26-34) PG MCHC 32.9 (30-36) % RDW 14.3 (11.6-14.8) % Plt Count 188 (150-400) X10^3/uL Neut % (Auto) 58.0 (50-75) % Lymph % (Auto) 23.4 L (25-40) % [place] % (Auto) 12.1 (3-14) % Eos % (Auto) 4.9 H (2-4) % Baso % (Auto) 1.6 (0-2) % Neut # (Auto) 4200 (8343-5770) /uL Lymph # (Auto) 1700 (0068-9404) /uL [place] # (Auto) 900 (0-900) /uL Eos # (Auto) 400 (0-450) /uL Baso # (Auto) 100 (0-100) /uL PT 35.1 H D (10.1-12.7) SECONDS INR 3.1 H (0.9-1.3) APTT 47 H (26.4-36.2) SECONDS Sodium (137-145) mmol/L Potassium (3.4-5.1) mmol/L Chloride (98-107) mmol/L Carbon Dioxide (22-32) mmol/L BUN (9-20) mg/dL Creatinine (0.66-1.25) mg/dL Estimated GFR (>60) mL/min BUN/Creatinine Ratio (6-22) Glucose (80-110) mg/dL Calcium (8.4-10.2) mg/dL Magnesium (1.6-2.3) mg/dL Total Bilirubin (0.2-1.3) mg/dL AST (17-59) IU/L ALT (<50) IU/L Alkaline Phosphatase (38-126) U/L Total Creatine Kinase (55-170) U/L CK-MB (CK-2) CK-MB (CK-2) Rel Index Troponin I (0.01-0.034) ng/mL NT-Pro-B Natriuret Pep 1970 H (<450) pg/mL Total Protein (6.3-8.2) g/dL Albumin (3.5-5.0) g/dL Globulin (1.7-4.1) g/dL Albumin/Globulin Ratio (1.0-2.8) 02/06/21 Range/Units 03:00 WBC (4.5-11.0) X10^3/uL RBC (4.5-5.9) X10^6/uL Hgb (13.5-17.5) g/dL Hct (41-53) % MCV (80-100) fL MCH (26-34) PG MCHC (30-36) % RDW (11.6-14.8) % Plt Count (150-400) X10^3/uL Neut % (Auto) (50-75) % Lymph % (Auto) (25-40) % [place] % (Auto) (3-14) % Eos % (Auto) (2-4) % Baso % (Auto) (0-2) % Neut # (Auto) (4994-0228) /uL Lymph # (Auto) (3822-4441) /uL [place] # (Auto) (0-900) /uL Eos # (Auto) (0-450) /uL Baso # (Auto) (0-100) /uL PT (10.1-12.7) SECONDS INR (0.9-1.3) APTT (26.4-36.2) SECONDS Sodium 133 L (137-145) mmol/L Potassium 4.9 (3.4-5.1) mmol/L Chloride 99 (98-107) mmol/L Carbon Dioxide 27 (22-32) mmol/L BUN 25 H (9-20) mg/dL Creatinine 1.08 (0.66-1.25) mg/dL Estimated GFR > 60.0 (>60) mL/min BUN/Creatinine Ratio 23.1 H (6-22) Glucose 101 (80-110) mg/dL Calcium 9.7 (8.4-10.2) mg/dL Magnesium 2.5 H (1.6-2.3) mg/dL Total Bilirubin 0.7 (0.2-1.3) mg/dL AST 35 (17-59) IU/L ALT 23 (<50) IU/L Alkaline Phosphatase 120 (38-126) U/L Total Creatine Kinase < 20 L (55-170) U/L CK-MB (CK-2) TNP CK-MB (CK-2) Rel Index TNP Troponin I < 0.012 (0.01-0.034) ng/mL NT-Pro-B Natriuret Pep (<450) pg/mL Total Protein 7.1 (6.3-8.2) g/dL Albumin 4.2 (3.5-5.0) g/dL Globulin 2.9 (1.7-4.1) g/dL Albumin/Globulin Ratio 1.4 (1.0-2.8) Imaging Data Chest x-ray: Radiologist's Impression: Preliminary report no interval change from previous ECG Data Attestation: I personally reviewed and interpreted this ECG as follows: Prior ECG tracings: available for review Interpretation: Atrial fibrillation with pacemaker rate [address] changes similar to previous EKG MDM Narrative Medical decision making narrative: Patient states that he goes to sleep and wakes up suddenly fearing that he cannot breathe. He previously had signs and symptoms similar to CHF with elevated BNP. His swelling has gone down he lost 7 lb. He no longer has peripheral edema. BNP today is 1900 vs 2300. At this time patient signs and symptoms to be more consistent with obstructive sleep apnea and I strongly recommend the patient have all sleep study. He sleeps in a reclining position at baseline and the on his left side. He certainly has no sign of infection or cardiac issues. Discharge Plan Departure Patient Disposition: Home Clinical Impression: Obstructive sleep apnea Instructions: DI for Obstructive Sleep Apnea -- Adult Activity Restrictions/Additional Instructions: *You have been diagnosed with obstructive sleep *What to do: At this time her symptoms are most consistent with obstructive sleep apnea. However you need a confirmatory muscle test done. Please talk to your care provider. *Continue to take medications as directed *Follow up with your primary care provider in 2-3 days *Return to ER if you should have increasing shortness of breath, fever, chest pain, palpitations or any new, worsening or concerning symptoms Prescriptions: No Action multivitamin [Multiple Vitamins] 1 EACH tablet 1 tab PO QDAY Qty: 0 RF: 0 glucosamine king 2KCl-chondroit [Glucosamine Sulf-Chondroitin] 500-400 mg Capsule 1 cap PO DAILY Qty: 0 RF: 0 fluorouracil [Efudex] 5 % cream 1 barbra Topical PRN PRN (Reason: skin cancer lesions) Qty: 0 RF: 0 warfarin [Coumadin] 3 MG tablet 5 mg PO SEEINSTR RF: 0 metoprolol succinate 50 mg Tablet Extended Release 24 Hr 50 mg PO BEDTIME RF: 0 omeprazole 20 mg Tablet,Delayed Release (Dr/Ec) 20 mg PO BID RF: 0 melatonin 5 MG tablet 5 mg PO QHS PRN (Reason: Sleep) RF: 0 hydrocodone-acetaminophen [[place]] 5-325 mg tablet 1 tab PO Q4-6H PRN (Reason: pain) Qty: 20 RF: 0 nitroglycerin 0.3 mg tablet, sublingual 0.3 mg SL Q5-15M PRN (Reason: chest pain) Qty: 25 RF: 0 furosemide [Lasix] 20 mg tablet 10 mg PO QAM Qty: 10 RF: 0 potassium chloride 8 mEq capsule, extended release 8 meq PO DAILY Qty: 10 RF: 0 Referrals: Uli Antunez MD [Primary Care Provider] -
[2021-02-06 03:52] VITALS: BP 138/82; PULSE 68; RESP 22; O2SAT 97
== END 2021-02-06 03:53 | disposition home or self-care (01) ==
PROVIDERS: Emergency Provider Emergency Medicine; Family Provider Internal Medicine; PCP Internal Medicine
DX: G47.33 Obstructive sleep apnea (adult) (pediatric) (principal); R06.02 Shortness of breath
CPT/HCPCS: 36415; 71045; 80053; 82550; 83735; 83880; 84484; 85025; 85610; 85730; 93005; 93010; 99284

== ENCOUNTER → 2021-10-03 11:17 | Outpatient (CLI) | payer OTHER, SELFPAY ==
[2021-10-03 12:58] LABS: COVID19 -Nasal RAPID Negative (Negative)
== END ==
PROVIDERS: Family Provider Internal Medicine; PCP Internal Medicine; Visit Provider Family Medicine Sleep Medicine
DX: Z20.822 Contact with and (suspected) exposure to COVID-19 (principal)
CPT/HCPCS: 87635; C9803

== ENCOUNTER → 2021-10-04 09:30 | Outpatient (CLI) | payer OTHER, SELFPAY ==
--- NOTE | 2021-10-05 19:27 | DI.NM.S_ITS ---
DATE OF SERVICE: 10/04/2021 PROCEDURE PERFORMED: Pharmacologic vasodilator stress and rest myocardial perfusion imaging with gating to assess ejection fraction and regional wall motion. ORDERING PROVIDER: Dr. Osmani Aguayo. INDICATIONS: The patient is an 86-year-old male with permanent atrial fibrillation, pacemaker, and progressive exertional dyspnea. CARDIAC STRESS: Per protocol, 0.4 mg of regadenoson was infused with a normal hemodynamic response. He had no chest discomfort or anginal symptoms. His resting ECG shows atrial fibrillation with intermittent ventricular pacing but relatively normal ST segments. With stress, there are no significant ST-segment shifts or other arrhythmias. Per protocol, 25.6 millicuries of technetium-99m Myoview was injected and he was imaged 20 minutes later using a gated SPECT acquisition protocol. Earlier in the day while at rest, he had been injected with 11.6 millicuries of technetium- 99m Myoview was imaged 25 minutes later, again using a gated SPECT acquisition protocol. FINDINGS: 1. Raw data: There is fair myocardial tracer uptake, although the resting images are of somewhat reduced quality, perhaps due to some mild motion. The lung/heart ratio is at the upper limits of normal at 0.41, which can be a sign of possible pulmonary congestion. TID ratio is normal at 1.00. 2. Quantitated gated SPECT: Post-stress ejection fraction is estimated at 73% without any focal wall motion abnormality. The resting ejection fraction is calculated at 57%, although visually appears to be quite similar to that of the post-stress ejection fraction but with suboptimal image quality. Resting end- diastolic volume is normal at 74 mL. 3. Myocardial perfusion imaging: Post-stress supine images shows a fairly normal myocardial perfusion pattern without any significant perfusion defects, supported by normal perfusion imaging in the prone position. The resting images show a similar perfusion pattern without any significant areas of improvement. IMPRESSION: 1. Normal myocardial perfusion study. 2. No evidence of myocardial ischemia or previous myocardial infarction. 3. Normal left ventricular systolic function with normal left ventricular volumes and no obvious wall motion abnormality. 4. The lung heart ratio was borderline increased at 0.41, which could be a nonspecific indicator of pulmonary congestion but clinical correlation is recommended. 5. No angina or ECG evidence of ischemia with pharmacologic vasodilator stress. The patient remained in persistent atrial fibrillation with a controlled ventricular response. Ajay Garcia - /faustino/alise doc#: [id number]/job#: [id number] dd: 10/05/2021 12:26:00 dt: 10/05/2021 19:14:00 DICTATING MD/COPIES TO: Baltazar Ivory MD; Osmani Aguayo MD COPIES MNE: JACKIE;
== END ==
PROVIDERS: Family Provider Internal Medicine; PCP Internal Medicine; Referring Provider Internal Medicine Cardiovascular Disease; Visit Provider Internal Medicine Cardiovascular Disease
DX: R06.00 Dyspnea, unspecified; Z95.0 Presence of cardiac pacemaker; I48.21 Permanent atrial fibrillation
CPT/HCPCS: 78452; 93017; A9502; J2785

== ENCOUNTER → 2022-02-10 09:50 | Outpatient (CLI) | payer OTHER, SELFPAY ==
--- NOTE | 2022-02-10 | DI.CT.S_ITS ---
PROCEDURE: CT UE RT W CON INDICATIONS: OSTEOARTHRITIS,ROTATOR CUFF TEAR TECHNIQUE: After the intra-articular administration of 12 mL of dilute non-ionic contrast, 1-1.5 mm thick sections acquired from the acromioclavicular joint to the inferior scapula, with coronal and sagittal reformatting. COMPARISON: [facility], CR, XR SHOULDER 2+ VIEWS RIGHT, 01/23/2022, 14:52. FINDINGS: Image quality: Excellent. Bones: Periarticular osteophyte formation at the acromioclavicular and glenohumeral joints. No fracture or osseous lesion. Superior subluxation of the humeral head. Soft tissues: Visualized lung parenchyma grossly unremarkable. Full-thickness tearing the supraspinatus and infraspinatus tendons, with associated atrophy of the supraspinatus and infraspinatus. Teres minor and subscapularis tendons are grossly intact. Diffuse degenerative glenoid labral tearing. IMPRESSION: 1. Acromioclavicular and glenohumeral joint osteoarthritis. 2. Full-thickness tearing of the supraspinatus and infraspinatus tendons with medial retraction and atrophy. 3. Diffuse glenoid labral tearing. Dictated by: Prudence Mckeon M.D. on 02/10/2022 at 13:07 Transcribed by: ADITI on 02/10/2022 at 13:08 Approved by: Prudence Mckeon M.D. on 02/10/2022 at 16:57
--- NOTE | 2022-02-10 | DI.RAD.S_ITS ---
PROCEDURE: FL SHOULDER INJECTION MR/CT RT INDICATIONS: OSTEOARTHRITIS,ROTATOR CUFF TEAR COMPARISON: None. TECHNIQUE: The indications, alternatives, benefits, risks, and complications of the procedure were explained to the patient. Written informed consent was obtained and placed in the chart. The shoulder was examined fluoroscopically and a site for needle placement chosen for entry into the glenohumeral joint from an anterior approach. The skin was prepped and draped in a sterile fashion, and 1% lidocaine infiltrated from skin down to joint capsule. A spinal needle was inserted into the glenohumeral joint, and a small amount of iodinated contrast media injected to confirm intra-articular placement of the needle tip. This was followed by approximately 12 mL of iodinated contrast. The needle was removed and a dressing was applied. The patient was given postprocedural instructions and sent to the CT suite for imaging. FINDINGS: A single fluoroscopic spot image demonstrates intra-articular location of injected iodinated contrast. IMPRESSION: Successful fluoroscopically guided administration of iodinated contrast solution into the shoulder joint for CT arthrogram. Dictated by: Elizabeth Souza MD, PhD on 02/10/2022 at 12:18 Approved by: Elizabeth Souza MD, PhD on 02/10/2022 at 12:18
== END ==
PROVIDERS: Family Provider Internal Medicine; PCP Internal Medicine; Referring Provider Orthopaedic Surgery; Visit Provider Orthopaedic Surgery
DX: M19.011 Primary osteoarthritis, right shoulder (principal); M75.121 Complete rotator cuff tear or rupture of right shoulder, not specified as traumatic; S43.491A Other sprain of right shoulder joint, initial encounter
CPT/HCPCS: 23350; 73201; 77002

== ENCOUNTER 2022-09-14 17:23 | Emergency (ER) | payer OTHER, SELFPAY ==
[2022-09-14 17:27] VITALS: BP 107/65; PULSE 75; RESP 15; TEMP 36.2; O2SAT 98; BMI 28.3
--- NOTE | 2022-09-14 17:40 | DI.RAD.S_ITS ---
PROCEDURE: XR CHEST 2V INDICATIONS: fall last night,known rib fractures,pneumo,increase SOB TECHNIQUE: 2 views of the chest were acquired. COMPARISON: [facility], CR, XR CHEST 1V, 02/06/2021, 3:04. FINDINGS: Surgical changes and devices: Dual lead left-sided transvenous pacemaker. Lungs and pleura: Low lung volumes. No visible pneumothorax. Horizontal opacity at the right lower lung. Diffuse interstitial thickening in the mid to lower lung zones. No left effusion. Mediastinum: Mediastinal contours are normal. Heart size is enlarged. Bones and chest wall: No suspicious bony abnormalities. Degenerative changes in the right shoulder. Severe leftward thoracolumbar scoliosis. Soft tissues appear unremarkable. IMPRESSION: 1. Cardiomegaly and diffuse interstitial prominence suggesting CHF. 2. Horizontal right base opacity may be atelectasis, effusion, or edema. 3. No evidence of pneumothorax. 4. No visible displaced rib fractures. Dictated by: Debora Mar M.D. on 09/14/2022 at 17:40 Approved by: Debora Mar M.D. on 09/14/2022 at 17:43
--- NOTE | 2022-09-14 18:48 | ED.GENADULT ---
HPI - General Adult General Chief complaint: Shortness of Breath/Dyspnea Stated complaint: shortness of breath, fall yesterday, went to ER Time Seen by Provider: 09/14/22 18:28 Source: patient Mode of arrival: Ambulatory Limitations: no limitations History of Present Illness HPI narrative: Patient is an 87-year-old male who yesterday sustained a fall. He went to an outside emergency department where he had multiple radiologic studies performed. The emergency department note is not available for my review however I do have the radiologic reports. It shows that he has minimally displaced right posterior 6th 7th and 8th rib fractures and a right T6 and T7 transverse process fractures that are not displaced. He also had a trace right pneumothorax and trace right pleural effusion. He was kept in the emergency department for an extended period of time. He had repeat x-rays performed which showed improvement/resolution of the pneumothorax and he was discharged home. He was discharged home with pain medications. That discharge was actually this morning. They had yet to car pick up driver his pain medication. He was sitting on the chair at home. He got up from his chair. Would into use the restroom and stated that he was having quite a bit discomfort which was causing him to have shortness of breath. By the time I evaluated him his symptoms had resolved. He actually states that just sitting there on the gurney he actually isn't in quite a bit of discomfort but it is what he moves. He does admit that he has had issues with breathing in the past. He states that at night he wakes up gasping for air. This has been intermittent and not a new after his injury yesterday. Because of the shortness of breath that he had earlier today he asked family to bring him in for further evaluation. Related Data Home Medications Medication Instructions Recorded Confirmed fluorouracil 5 % topical cream 1 barbra topical PRN PRN skin cancer 04/30/17 05/01/18 (Efudex) lesions ##0 glucosamine sulfate dipotassium Cl 1 cap PO DAILY ##0 04/30/17 05/01/18 500 mg-chondroitin 400 mg capsule (Glucosamine Sulfate 2 KCL-Chondroitin) multivitamin (Multiple Vitamins 1 tab PO QDAY ##0 04/30/17 05/01/18 tablet) melatonin 5 mg tablet 5 mg PO QHS PRN Sleep 05/01/18 05/13/18 metoprolol succinate 50 mg 50 mg PO BEDTIME 05/01/18 02/22/21 tablet,extended release 24 hr omeprazole 20 mg tablet,delayed 20 mg PO BID 05/01/18 02/22/21 release warfarin 3 mg tablet (Coumadin) 5 mg PO SEEINSTR 05/01/18 02/22/21 Previous Rx's Medication Instructions Recorded hydrocodone 5 mg-acetaminophen 325 1 tab PO Q4-6H PRN pain #20 tabs 05/13/18 mg tablet ([place]) furosemide 20 mg tablet (Lasix) 10 mg PO QAM #10 tabs 10/02/19 nitroglycerin 0.3 mg sublingual 0.3 mg sublingual Q5-15M PRN chest 10/02/19 tablet pain #25 tabs potassium chloride 8 mEq 8 meq PO DAILY #10 caps 10/02/19 capsule,extended release Allergies Allergy/AdvReac Type Severity Reaction Status Date / Time sulfite [SULFITE] Allergy Severe from foods Verified 09/14/22 17:27 Penicillins [PENICILLINS] Allergy Mild Rash Verified 09/14/22 17:27 Review of Systems Constitutional Constitutional: Reports system reviewed and no additional complaints, except as documented Cardiovascular Cardiovascular: Reports system reviewed and no additional complaints, except as documented Respiratory Respiratory: Reports system reviewed and no additional complaints, except as documented Neurologic Neurologic: Reports system reviewed and no additional complaints, except as documented Hematologic/Lymphatic On Anticoagulants: No Patient History Medical History Afib BCC (basal cell carcinoma of skin) Bilateral lower extremity edema Closed nondisplaced fracture of pelvis CVA (cerebral vascular accident) Diabetes Easy bruisability Fragile skin GERD (gastroesophageal reflux disease) Left foot drop Mixed hyperlipidemia Numbness Pacemaker Pneumonia Scoliosis Sleep disorder Surgical History Hx of arthroscopy of shoulder Hx of hernia repair Hx of tonsillectomy Status post bilateral cataract extraction Social History household members: spouse Smoking Status: Never smoker alcohol intake: current Smoking Status: Never smoker alcohol intake frequency: 0-2 drinks per day Alcohol type: hard liquor Substance Use Type: does not use Exam Initial Vital Signs Initial Vital Signs: Vital Signs Temperature 97.2 F L 09/14/22 17:27 Pulse Rate 75 09/14/22 17:27 Respiratory Rate 15 09/14/22 17:27 Blood Pressure 107/65 09/14/22 17:27 Pulse Oximetry 98 09/14/22 17:27 Oxygen Delivery Method 09/14/22 17:27 Const General: cooperative, comfortable and No ill appearing Chest Other: Tenderness to palpation right lateral/posterior lower ribs Resp Effort & Inspection: normal respiratory effort Auscultation: clear to auscultation bilaterally Cardio Rate: regular rate Skin General: no rashes or lesions noted Neuro General: patient alert, patient awake and moves all extremities Extrem General: normal to inspection and capillary refill normal Course Orders Ordered: ED Orders 09/14/22 17:40 Chest [XR chest 2V] Stat Vital Signs Vital signs: Vital Signs - 8 hr 09/14/22 19:05 Pulse Rate 80 Respiratory Rate 20 Blood Pressure 108/63 Pulse Oximetry 98 Oxygen Delivery Method Room Air Medical Decision Making Differential Diagnosis Differential Diagnosis: Pneumothorax, rib fractures, pulmonary contusion, ACS, hemothorax and other Condition is:: Well Controlled Condition is at treatment goal?: Yes Medical Records Medical records reviewed: Yes I reviewed the patient's medical records. Imaging Data Chest x-ray: Radiologist's Impression: [address] [address] XRay Report Signed Patient: Ajay Garcia MR#: [id number] : 1935 Acct:[id number] Age/Sex: 87 / M Date of Service: 09/14/22 Loc: ED Accession Number: [id number] ?? Procedure: XR chest 2V Ordering Provider: Amie Frias D.O. PROCEDURE:? XR CHEST 2V ? INDICATIONS:? fall last night,known rib fractures,pneumo,increase SOB ? TECHNIQUE:? 2 views of the chest were acquired.? ? COMPARISON:? [facility], [place], XR CHEST 1V, 02/06/2021, 3:04. ? FINDINGS:? ? Surgical changes and devices:? Dual lead left-sided transvenous pacemaker. ? Lungs and pleura:? Low lung volumes.? No visible pneumothorax.? Horizontal opacity at the right lower lung.? Diffuse interstitial thickening in the mid to lower lung zones.? No left effusion. ? Mediastinum:? Mediastinal contours are normal.? Heart size is enlarged.? ? Bones and chest wall:? No suspicious bony abnormalities.? Degenerative changes in the right shoulder.? Severe leftward thoracolumbar scoliosis.? Soft tissues appear unremarkable.? ? IMPRESSION:? ? 1. Cardiomegaly and diffuse interstitial prominence suggesting CHF. ? 2. Horizontal right base opacity may be atelectasis, effusion, or edema. ? 3. No evidence of pneumothorax. ? 4. No visible displaced rib fractures.? ? Dictated by: Debora Mar M.D. on 09/14/2022 at 17:40 ? ? Approved by: Debora Mar M.D. on 09/14/2022 at 17:43? MDM Narrative Medical decision making narrative: Patient has no respiratory distress. Clear lungs. Chest x-ray shows no pneumothorax. He does have tenderness over the areas where we know that he has fractured ribs. He is afebrile. I suspect that he had not taken any of his pain medication (which he now has) and he got up from his chair. He stated that he was in very extreme pain at the time which I suspect worsened his problems breathing. Unsure if this is related to the issues that he is had with occasional breathing problems specifically at night. What he describes does sound somewhat like sleep apnea. He has had a sleep study but that was many years ago. I advised that he talk with his primary doctor regarding this about potentially needing another sleep study. We had a long discussion with him and family/friend at bedside bowel return precautions. Will discharge patient home. He has pain medications. There is no indication for antibiotics. No indication for admission to the hospital. He was given very strict return precautions. He expressed understanding and agreement. Discharge Plan Departure Patient Disposition: Home Clinical Impression: Fracture of rib, Shortness of breath Instructions: DI for Rib Fracture Activity Restrictions/Additional Instructions: I recommend that you continue to take all of your medications as directed to include the pain medication. Be sure that you are occasionally taking deep breaths. Contact your primary doctor for a follow-up. Return to the emergency department for any new or worsening symptoms. Prescriptions: No Action multivitamin [Multiple Vitamins] 1 EACH tablet 1 tab PO QDAY Qty: 0 glucosamine king 2KCl-chondroit [Glucosamine Sulf-Chondroitin] 500-400 mg Capsule 1 cap PO DAILY Qty: 0 fluorouracil [Efudex] 5 % cream 1 barbra Topical PRN PRN (Reason: skin cancer lesions) Qty: 0 warfarin [Coumadin] 3 MG tablet 5 mg PO SEEINSTR Rx Instructions: 5mg every Sunday/2.5mg rest metoprolol succinate 50 mg Tablet Extended Release 24 Hr 50 mg PO BEDTIME omeprazole 20 mg Tablet,Delayed Release (Dr/Ec) 20 mg PO BID melatonin 5 MG tablet 5 mg PO QHS PRN (Reason: Sleep) hydrocodone-acetaminophen [[place]] 5-325 mg tablet 1 tab PO Q4-6H PRN (Reason: pain) Qty: 20 0RF Rx Instructions: 1 tablet PO every 4-6 hours as needed for pain nitroglycerin 0.3 mg tablet, sublingual 0.3 mg SL Q5-15M PRN (Reason: chest pain) Qty: 25 0RF Rx Instructions: until response; do not exceed 3 doses per episode, take for chest pain and or chest tightness with Shortness of breath furosemide [Lasix] 20 mg tablet 10 mg PO QAM Qty: 10 0RF Rx Instructions: Take for pitting swollen legs only with shortness of breath potassium chloride 8 mEq capsule, extended release 8 meq PO DAILY Qty: 10 0RF Rx Instructions: Take only when you are taking the lasix Referrals: Uli Antunez MD [Primary Care Provider] - Stand Alone Forms: Patient Portal/API
[2022-09-14 19:05] VITALS: BP 108/63; PULSE 80; RESP 20; O2SAT 98
== END 2022-09-14 19:05 | disposition home or self-care (01) ==
PROVIDERS: Emergency Provider Emergency Medicine; Family Provider Internal Medicine; PCP Internal Medicine
DX: S22.31XA Fracture of one rib, right side, initial encounter for closed fracture (principal); R06.02 Shortness of breath; W18.30XA Fall on same level, unspecified, initial encounter
CPT/HCPCS: 71046; 99283

== ENCOUNTER 2022-09-24 18:35 | Emergency (ER) | payer OTHER, SELFPAY ==
[2022-09-24] VITALS (13 sets, daily range): BP systolic 121–133; BP diastolic 67–73; PULSE 73–93; RESP 13–23; TEMP 36.6; O2SAT 92–99; BMI 27.4
--- NOTE | 2022-09-24 19:06 | DI.RAD.S_ITS ---
PROCEDURE: XR CHEST 1V INDICATIONS: Shortness of breath TECHNIQUE: One view of the chest was acquired. COMPARISON: [facility], [place], XR CHEST 2V, 09/14/2022, 17:40. FINDINGS: Surgical changes and devices: Left-sided pacer Lungs and pleura: Lungs are clear. No pleural effusions or pneumothorax. Mediastinum: Mediastinal contours appear normal. Heart size is normal. Bones and chest wall: No suspicious bony lesions. Overlying soft tissues appear unremarkable. IMPRESSION: No acute process. Dictated by: Prudence Mckeon M.D. on 09/24/2022 at 19:27 Approved by: Prudence Mckeon M.D. on 09/24/2022 at 19:28
[2022-09-24 19:59] LABS: Add Manual Diff / Slide Review NO; Basophils Absolute Auto 100 /uL (0-100); Basophils Percent Auto 1.1 % (0-2); Eosinophils Absolute Auto 100 /uL (0-450); Eosinophils Percent Auto 1.9 % (2-4); Hematocrit 36.7 % (41-53); Hemoglobin 12.5 g/dL (13.5-17.5); Lymphocytes Absolute Auto 900 /uL (1100-4500); Lymphocytes Percent Auto 13.3 % (25-40); Mean Corpuscular HGB Conc 33.9 % (30-36); Mean Corpuscular Hemoglobin 30.9 PG (26-34); Mean Corpuscular Volume 91.1 fL (80-100); Monocytes Absolute Auto 700 /uL (0-900); Monocytes Percent Auto 10.5 % (3-14); Neutrophils Absolute Auto 5100 /uL (1500-7000); Neutrophils Percent Auto 73.2 % (50-75); Platelet Count 249 X10^3/uL (150-400); Red Blood Cell Count 4.03 X10^6/uL (4.5-5.9); Red Cell Distribution Width 13.9 % (11.6-14.8); White Blood Cell Count 6.9 X10^3/uL (4.5-11.0)
--- NOTE | 2022-09-24 20:02 | ED.FEMALEGU ---
HPI - Female Genitourinary General Chief complaint: Shortness of Breath/Dyspnea Stated complaint: SOB/Blood Ox 99%/Passed Out Time Seen by Provider: 09/24/22 19:29 History of Present Illness HPI Narrative: 87-year-old woman with a history of congestive heart failure, atrial fibrillation, prior stroke, diabetes, hyperlipidemia with sleep apnea who has never been able to complete a full workup to finally be prescribed CPAP machine presents complaining of severe apneic episodes when he falls asleep during the day that cause him to wake up in a panic. Frequently that panic and anxiety will last for a couple of days. He fell down the stairs on September 13 was seen at [facility] where x-rays revealed displaced right posterior 6 7 and 8 rib fractures and a right T6 and T7 transverse process fractures nondisplaced. A trace pneumothorax and trace right pleural effusion. Was observed in the emergency department with repeat x-ray showing the pneumothorax was not expanding he was discharged home. He presented to [facility] on the 06/02 complaining of shortness of breath particularly with exertion. He had not picked up his pain medications at that time. Was prescribed oxycodone and has since pick them up to but does not use them much. Main concern at this time is that any time he falls asleep he stops breathing wakes up panic and is afraid to go to sleep. He describes no recent change to weight has continued to use his prescribed 60 mg of Lasix daily. No fevers no particular cough. He is not having overt palpitations but does note that he is in atrial fibrillation and anticoagulated on warfarin. Related Data Home Medications Medication Instructions Recorded Confirmed fluorouracil 5 % topical cream 1 barbra topical PRN PRN skin cancer 04/30/17 05/01/18 (Efudex) lesions ##0 glucosamine sulfate dipotassium Cl 1 cap PO DAILY ##0 04/30/17 05/01/18 500 mg-chondroitin 400 mg capsule (Glucosamine Sulfate 2 KCL-Chondroitin) multivitamin (Multiple Vitamins 1 tab PO QDAY ##0 04/30/17 05/01/18 tablet) melatonin 5 mg tablet 5 mg PO QHS PRN Sleep 05/01/18 05/13/18 metoprolol succinate 50 mg 50 mg PO BEDTIME 05/01/18 02/22/21 tablet,extended release 24 hr omeprazole 20 mg tablet,delayed 20 mg PO BID 05/01/18 02/22/21 release warfarin 3 mg tablet (Coumadin) 5 mg PO SEEINSTR 05/01/18 02/22/21 Previous Rx's Medication Instructions Recorded hydrocodone 5 mg-acetaminophen 325 1 tab PO Q4-6H PRN pain #20 tabs 05/13/18 mg tablet (Stephenson) furosemide 20 mg tablet (Lasix) 10 mg PO QAM #10 tabs 10/02/19 nitroglycerin 0.3 mg sublingual 0.3 mg sublingual Q5-15M PRN chest 10/02/19 tablet pain #25 tabs potassium chloride 8 mEq 8 meq PO DAILY #10 caps 10/02/19 capsule,extended release Allergies Allergy/AdvReac Type Severity Reaction Status Date / Time sulfite [SULFITE] Allergy Severe from foods Verified 09/24/22 19:56 Penicillins [PENICILLINS] Allergy Mild Rash Verified 09/24/22 19:56 Review of Systems Review of Systems Narrative: Remainder of complete review of systems is otherwise unremarkable except for that included in the HPI. Patient History Medical History Afib BCC (basal cell carcinoma of skin) Bilateral lower extremity edema Closed nondisplaced fracture of pelvis CVA (cerebral vascular accident) Diabetes Easy bruisability Fragile skin GERD (gastroesophageal reflux disease) Left foot drop Mixed hyperlipidemia Numbness Pacemaker Pneumonia Scoliosis Sleep disorder Surgical History Hx of arthroscopy of shoulder Hx of hernia repair Hx of tonsillectomy Status post bilateral cataract extraction alcohol intake frequency: 0-2 drinks per day Alcohol type: hard liquor Substance Use Type: does not use Exam Initial Vital Signs Initial Vital Signs: Vital Signs Pulse Rate 73 09/24/22 19:00 Respiratory Rate 20 09/24/22 19:00 Blood Pressure 133/73 09/24/22 19:00 Pulse Oximetry 97 09/24/22 19:00 Oxygen Delivery Method 09/24/22 19:00 General: Healthy appearing, in no acute distress. Able to give a complete and coherent history. Well-nourished well-developed HEENT: Moist mucous membranes, normal sclera with reactive pupils, skin cancer involving the helix of his right ear Neck: No JVD, supple Respiratory: Lungs are clear to auscultation, no wheezing no rales no rhonchi. Full and symmetrical air movement Cardiac: Regular rate and rhythm no murmurs no bruits Abdomen: Soft, nontender, good bowel tones, no flank pain Skin: Warm and dry, no rashes Neurologic: Grossly neurologically intact with no obvious asymmetries or abnormalities Extremities: No trauma, well perfused, 1+ edema bilaterally Psych: Cooperative, appropriate insight and affect Course Orders Ordered: ED Orders 09/24/22 19:06 XR chest 1V Stat EKG-12 Lead Stat Measure peak expiratory flow ONCE RT Consult Eval and Treat NOW 09/24/22 19:42 Complete Blood Count AUTO DIFF Stat Comprehensive Metabolic Panel Stat Covid-19 + FLU A/B + RSV - PCR Stat Lactate (Lactic Acid) Stat NT-proBNP (BNP-Adult 18+) Stat Prothrombin Time INR Stat Troponin I Stat 09/24/22 20:31 CT angio chest PE protocol Stat CT head/brain wo con Stat Discontinued Medications Furosemide 60 mg/ Sodium (Chloride) 56 mls @ 112 mls/hr IV NOW ONE Stop: 09/24/22 20:32 Last Infusion: 09/24/22 21:48 Dose: 0 mls/hr Documented By: Admin: 09/24/22 21:10 Dose: 112 mls/hr Documented By: JARVIS Vital Signs Vital signs: Vital Signs - 8 hr 09/24/22 19:00 09/24/22 19:10 Temperature 98 F Pulse Rate 73 Respiratory Rate 20 Blood Pressure 133/73 Pulse Oximetry 97 Oxygen Delivery Method Room Air MDM - Female Genitourinary Lab Data 09/24/22 19:42 09/24/22 19:42 Labs: Lab Results 09/24/22 09/24/22 09/24/22 Range/Units 19:42 19:42 19:42 WBC 6.9 (4.5-11.0) X10^3/uL RBC 4.03 L (4.5-5.9) X10^6/uL Hgb 12.5 L (13.5-17.5) g/dL Hct 36.7 L (41-53) % MCV 91.1 (80-100) fL MCH 30.9 (26-34) PG MCHC 33.9 (30-36) % RDW 13.9 (11.6-14.8) % Plt Count 249 (150-400) X10^3/uL Neut % (Auto) 73.2 (50-75) % Lymph % (Auto) 13.3 L (25-40) % [place] % (Auto) 10.5 (3-14) % Eos % (Auto) 1.9 L (2-4) % Baso % (Auto) 1.1 (0-2) % Neut # (Auto) 5100 (2702-9542) /uL Lymph # (Auto) 900 L (1084-7527) /uL [place] # (Auto) 700 (0-900) /uL Eos # (Auto) 100 (0-450) /uL Baso # (Auto) 100 (0-100) /uL PT 18.7 H (10.1-12.7) SECONDS INR 1.6 H (0.9-1.3) Sodium 134 L (137-145) mmol/L Potassium 3.9 (3.4-5.1) mmol/L Chloride 94 L (98-107) mmol/L Carbon Dioxide 27 (22-32) mmol/L BUN 25 H (9-20) mg/dL Creatinine 1.29 H (0.66-1.25) mg/dL Estimated GFR 54 L (>60) mL/min BUN/Creatinine Ratio 19.4 (6-22) Glucose 124 H (80-110) mg/dL Lactate (0.7-2.1) mmol/L Calcium 8.9 (8.4-10.2) mg/dL Total Bilirubin 1.1 (0.2-1.3) mg/dL AST 28 (17-59) IU/L ALT 21 (<50) IU/L Alkaline Phosphatase 141 H (38-126) U/L Troponin I < 0.012 (0.01-0.034) ng/mL NT-Pro-B Natriuret Pep 2510 H (<450) pg/mL Total Protein 7.3 (6.3-8.2) g/dL Albumin 4.0 (3.5-5.0) g/dL Globulin 3.3 (1.7-4.1) g/dL Albumin/Globulin Ratio 1.2 (1.0-2.8) SARS-CoV-2 (PCR) (Negative) Influenza A (RT-PCR) (NEGATIVE) Influenza B (RT-PCR) (NEGATIVE) RSV (PCR) (Negative) 09/24/22 09/24/22 Range/Units 19:42 19:42 WBC (4.5-11.0) X10^3/uL RBC (4.5-5.9) X10^6/uL Hgb (13.5-17.5) g/dL Hct (41-53) % MCV (80-100) fL MCH (26-34) PG MCHC (30-36) % RDW (11.6-14.8) % Plt Count (150-400) X10^3/uL Neut % (Auto) (50-75) % Lymph % (Auto) (25-40) % [place] % (Auto) (3-14) % Eos % (Auto) (2-4) % Baso % (Auto) (0-2) % Neut # (Auto) (2866-2755) /uL Lymph # (Auto) (5206-8478) /uL [place] # (Auto) (0-900) /uL Eos # (Auto) (0-450) /uL Baso # (Auto) (0-100) /uL PT (10.1-12.7) SECONDS INR (0.9-1.3) Sodium (137-145) mmol/L Potassium (3.4-5.1) mmol/L Chloride (98-107) mmol/L Carbon Dioxide (22-32) mmol/L BUN (9-20) mg/dL Creatinine (0.66-1.25) mg/dL Estimated GFR (>60) mL/min BUN/Creatinine Ratio (6-22) Glucose (80-110) mg/dL Lactate 1.6 (0.7-2.1) mmol/L Calcium (8.4-10.2) mg/dL Total Bilirubin (0.2-1.3) mg/dL AST (17-59) IU/L ALT (<50) IU/L Alkaline Phosphatase (38-126) U/L Troponin I (0.01-0.034) ng/mL NT-Pro-B Natriuret Pep (<450) pg/mL Total Protein (6.3-8.2) g/dL Albumin (3.5-5.0) g/dL Globulin (1.7-4.1) g/dL Albumin/Globulin Ratio (1.0-2.8) SARS-CoV-2 (PCR) Negative (Negative) Influenza A (RT-PCR) Flu a negative (NEGATIVE) Influenza B (RT-PCR) Flu b negative (NEGATIVE) RSV (PCR) Negative (Negative) Imaging Data Chest x-ray: Radiologist's Impression: FINDINGS: Surgical changes and devices: Left-sided pacer Lungs and pleura: Lungs are clear. No pleural effusions or pneumothorax. Mediastinum: Mediastinal contours appear normal. Heart size is normal. Bones and chest wall: No suspicious bony lesions. Overlying soft tissues appear unremarkable. IMPRESSION: No acute process. Dictated by: Prudence Mckeon M.D. on 09/24/2022 at 19:27 ECG Data Interpretation: Atrial fibrillation at a rate of 79. Single paced beat appreciated, no acute ischemic changes MDM Narrative Medical decision making narrative: CC: Severe apneic spells any time he falls asleep. This is an acute exacerbation of a chronic problem with uncertain prognosis and potential for significant systemic symptoms Complicating co-morbidities: Recent fall down stairs with rib fractures and transverse process fractures in the thorax, recent pneumothorax. Congestive heart failure. Complaints of significant exertional dyspnea that has dramatically worsened over the last 3 months Corroborating data: Data collected from: patient, Social determinants of health that may influence the patients condition: Age, difficulty accessing healthcare Medical records reviewed: Prior sleep visits, pulmonary function tests, orthopedic surgery for his chronic back pain as well as prior ER notes related to fall on September 13 Differential considered: Hemothorax, pneumothorax, complications from recent fall, acute coronary syndrome, congestive heart failure, severe sleep apnea exacerbated by pain and recent fall, infectious etiology, central sleep apnea, intracranial hemorrhage affecting breathing issues related to recent fall Exam documented above, pertinent findings include: He is alert and appropriate, speaking in full sentences, no wheezing, no crackles minimal lower extremity edema minimal tenderness related to the known rib and transverse process fractures. Rate controlled atrial fibrillation and no jugular venous distention Lab Test results independently reviewed as above. Pertinent findings: CBC is reviewed. No leukocytosis. Slight decrease in H&H to 12.5 and 36.7. Comparison is January of 2021 INR is slightly subtherapeutic at 1.6 BNP slightly elevated Troponin unremarkable Independently reviewed EKG as above Imaging studies independently reviewed: Chest x-ray shows no significant abnormalities Head CT shows old prior infarct with no acute findings CT angiogram of the chest shows no pulmonary embolism however enlargement of the pulmonary arteries suggestive of pulmonary artery hypertension. No acute rib fractures are identified findings consistent with chronic interstitial lung disease. 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 Consultations: Treatments: Re-evaluations: After reviewing initial blood work, discussed findings with patient. He believes there was a CT scan done with a fall a couple of weeks ago but is not entirely certain. Would like to repeat a CT scan to make sure there is not subdural that might be causing worsening central sleep apnea and would also like to do a CT scan of the chest to look for pulmonary embolism, as well as review trauma findings. His pro BNP is elevated suggesting slightly worsening congestive heart failure with negative troponin suggesting lack of acute coronary syndrome. Patient is agreeable to workup Discussion: 87-year-old gentleman who complains of severe apnea any time he falls asleep. He does have mild exacerbation of his chronic congestive heart failure and I will have him increase his Lasix however he is not meeting any criteria for hospitalization at this time. No suggestion of brain abnormalities that would be causing central sleep apnea, possible pulmonary hypertension that can be addressed with his primary care provider, no pulmonary embolism, pneumonia. Rib fractures are healing nicely from his prior fall. No hemo pneumothorax is appreciated. Will ask him to follow-up with his primary care doctor regarding his sleep disorder and need for CPAP. All of this is reviewed with the patient who is agreeable with plan. He is safe for discharge home Disposition: see below, along with detailed discharge instructions that have been reviewed with patient as well as indications for ED re-evaluation and additional outpatient follow up Discharge Plan Departure Patient Disposition: Home Clinical Impression: Pulmonary arterial hypertension Apnea, sleep Qualifiers: Sleep apnea type: unspecified type Qualified Code(s): G47.30 - Sleep apnea, unspecified Congestive heart failure Qualifiers: Heart failure type: unspecified Heart failure chronicity: acute on chronic Qualified Code(s): I50.9 - Heart failure, unspecified Instructions: DI for Heart Failure, DI for Obstructive Sleep Apnea -- Adult Activity Restrictions/Additional Instructions: Thank you for coming in today It does look like your congestive heart failure is slightly worsened with a bit more fluid overload. You are given some IV Lasix in the emergency department. I am going to ask you to increase your usual dose of Lasix from 40 mg in the morning to 60 mg with the additional 20 mg continuing in the afternoon. You will need follow-up with your primary care provider to make sure that this is going well and will likely to recheck potassium levels and kidney function. And looking for alternate reasons for the severity of your sleep apnea, I did not find any abnormalities in your brain, no infection, no blood clots in your lungs, your rib fractures are healing nicely and there is no collapsed lung or blood around her lungs. The CT scan did suggest a component of pulmonary hypertension and it may be worth discussing this with your primary care provider. You do need to follow-up with your sleep provider to continue your progress toward getting a CPAP machine for use at home. If you find that you are getting worse or develop any new symptoms, please feel free to return to the emergency department for further evaluation. Prescriptions: No Action multivitamin [Multiple Vitamins] 1 EACH tablet 1 tab PO QDAY Qty: 0 glucosamine king 2KCl-chondroit [Glucosamine Sulf-Chondroitin] 500-400 mg Capsule 1 cap PO DAILY Qty: 0 fluorouracil [Efudex] 5 % cream 1 barbra Topical PRN PRN (Reason: skin cancer lesions) Qty: 0 warfarin [Coumadin] 3 MG tablet 5 mg PO SEEINSTR Rx Instructions: 5mg every Sunday/2.5mg rest metoprolol succinate 50 mg Tablet Extended Release 24 Hr 50 mg PO BEDTIME omeprazole 20 mg Tablet,Delayed Release (Dr/Ec) 20 mg PO BID melatonin 5 MG tablet 5 mg PO QHS PRN (Reason: Sleep) hydrocodone-acetaminophen [Stephenson] 5-325 mg tablet 1 tab PO Q4-6H PRN (Reason: pain) Qty: 20 0RF Rx Instructions: 1 tablet PO every 4-6 hours as needed for pain nitroglycerin 0.3 mg tablet, sublingual 0.3 mg SL Q5-15M PRN (Reason: chest pain) Qty: 25 0RF Rx Instructions: until response; do not exceed 3 doses per episode, take for chest pain and or chest tightness with Shortness of breath furosemide [Lasix] 20 mg tablet 10 mg PO QAM Qty: 10 0RF Rx Instructions: Take for pitting swollen legs only with shortness of breath potassium chloride 8 mEq capsule, extended release 8 meq PO DAILY Qty: 10 0RF Rx Instructions: Take only when you are taking the lasix Referrals: Uli Antunez MD [Primary Care Provider] - Stand Alone Forms: Patient Portal/API
[2022-09-24 20:12] LABS: INR 1.6 (0.9-1.3); Prothrombin Time 18.7 SECONDS (10.1-12.7)
[2022-09-24 20:16] LABS: Lactate (Lactic Acid) 1.6 mmol/L (0.7-2.1)
[2022-09-24 20:18] LABS: Alanine Aminotransferase 21 IU/L (<50); Albumin Globulin Ratio 1.2 (1.0-2.8); Alkaline Phosphatase 141 U/L (38-126); Aspartate Aminotransferase 28 IU/L (17-59); BUN Creatinine Ratio 19.4 (6-22); Bilirubin Total 1.1 mg/dL (0.2-1.3); Blood Urea Nitrogen 25 mg/dL (9-20); Calcium 8.9 mg/dL (8.4-10.2); Carbon Dioxide 27 mmol/L (22-32); Chloride 94 mmol/L (98-107); Estimated Glomerular Filt Rate 54 mL/min (>60); Globulin 3.3 g/dL (1.7-4.1); Glucose 124 mg/dL (80-110); HEMOLYSIS < 15 (0-50); Potassium 3.9 mmol/L (3.4-5.1); Sodium 134 mmol/L (137-145); Total Protein 7.3 g/dL (6.3-8.2)
[2022-09-24 20:28] LABS: NT-proBNP (BNP-Adult 18+) 2510 pg/mL (<450); Troponin I < 0.012 ng/mL (0.01-0.034)
--- NOTE | 2022-09-24 20:31 | DI.CT.S_ITS ---
PROCEDURE: CT HEAD/BRAIN WO CON INDICATIONS: trauma 09/14, warfarin, worsening apnic spells TECHNIQUE: Noncontrast 4.5 mm thick angled axial sections acquired from the foramen magnum to the vertex, with coronal and sagittal reformats. For radiation dose reduction, the following was used: automated exposure control, adjustment of mA and/or kV according to patient size. COMPARISON: None. FINDINGS: Image quality: Excellent. CSF spaces: Basal cisterns are patent. No extra-axial fluid collections. The ventricles are symmetric in size and shape. There is cerebral volume loss, with resultant ventricular and sulcal prominence. Brain: No intracranial hemorrhage, mass, or mass effect. Encephalomalacia is demonstrated within the medial left temporal lobe and left occipital lobe consistent with sequelae of a prior infarct. There are subcortical, periventricular and deep white matter hypodensities consistent with moderate chronic small vessel ischemic changes. There is intracranial internal carotid artery atherosclerosis. Skull and face: Calvarium and visualized facial bones appear intact, without suspicious lesions. Sinuses: Visualized sinuses and mastoids are clear. IMPRESSION: 1. No acute intracranial abnormality. 2. Encephalomalacia within the left occipital and temporal lobes consistent with sequelae of a prior infarct. Dictated by: Gilberto Horton M.D. on 09/24/2022 at 21:05 Approved by: Gilberto Horton M.D. on 09/24/2022 at 21:06
--- NOTE | 2022-09-24 20:31 | DI.CT.S_ITS ---
PROCEDURE: CT ANGIO CHEST PE PROTOCOL INDICATIONS: recent fall down stairs, worsening apnic spells TECHNIQUE: After the administration of intravenous contrast, 2 mm thick sections acquired from the pulmonary apices to the posterior costophrenic angles. 3-dimensional maximum intensity projection (MIP) coronal and sagittal reformats were then acquired through the thorax. For radiation dose reduction, the following was used: automated exposure control, adjustment of mA and/or kV according to patient size. COMPARISON: [facility], CR, XR CHEST 1V, 09/24/2022, 19:17. FINDINGS: Image quality: Excellent. Pulmonary arteries: Pulmonary arteries demonstrate no intraluminal filling defects to suggest central pulmonary embolism. There is enlargement of the pulmonary arteries, with the main pulmonary artery measuring up to 4.2 cm suggestive of pulmonary arterial hypertension. Lower Neck: No lymphadenopathy by size criteria. Thyroid: Visualized thyroid demonstrates no discrete nodules. Axillae: No lymphadenopathy by size criteria. Chest Wall: There is a left chest wall pacemaker with leads extending into the right atrium and right ventricle. Bones: There are healed fractures of the right 5th and 6th ribs. No acute rib fractures identified. Visualized osseous structures demonstrate no suspicious lesions. Lungs and Airways: No acute consolidation. There is peripheral subpleural reticulation with indistinct ground-glass opacities consistent with chronic interstitial lung disease. There are linear areas of scarring also demonstrated in the lung bases. There is mild bilateral bronchial wall thickening with a basilar predominance. The trachea and central airways are patent. Pleura: No pneumothorax or pleural effusions. Heart: Heart size is enlarged. No pericardial effusion. Thoracic Vessels: There is aneurysmal dilatation of the thoracic aorta. The ascending aorta measures up to 4.1 cm in diameter. The aortic arch measures up to 3.1 cm at the vertex. The proximal descending aorta measures up to 3.0 cm. At the level of the diaphragmatic hiatus, the aorta measures up to 2.8 cm. Mediastinum and [place]: No lymphadenopathy by size criteria. Esophagus: No wall thickening. No hiatal hernia. Abdomen: Visualized upper abdomen demonstrates cysts within the visualized kidneys. IMPRESSION: 1. No evidence of pulmonary embolism. There is enlargement of the pulmonary arteries suggestive of pulmonary arterial hypertension. 2. Bilateral findings consistent with chronic interstitial lung disease with a pattern suggestive of NSIP 3. Aneurysmal dilatation of the thoracic aorta. 4. No acute rib fractures identified. Dictated by: Gilberto Horton M.D. on 09/24/2022 at 21:17 Approved by: Gilberto Horton M.D. on 09/24/2022 at 21:25
[2022-09-24 20:35] LABS: Influenza A - CEPHEID Flu A NEGATIVE (NEGATIVE); Influenza B - CEPHEID Flu B NEGATIVE (NEGATIVE); Respiratory Syncytial Virus Negative (Negative)
[2022-09-24 20:36] LABS: COVID-19 CEPHEID 4-PLEX PCR Negative (Negative)
[2022-09-24] MEDS: FUROSEMIDE 60 MG in SODIUM CHLORIDE 0.9% 50 ML 112 MG IV (21:10)
== END 2022-09-24 23:36 | disposition home or self-care (01) ==
PROVIDERS: Emergency Medicine; Emergency Provider Emergency Medicine; Family Provider Internal Medicine; PCP Internal Medicine
DX: I27.21 Secondary pulmonary arterial hypertension (principal); G47.30 Sleep apnea, unspecified; I50.9 Heart failure, unspecified; I48.91 Unspecified atrial fibrillation; Z79.01 Long term (current) use of anticoagulants; Z20.822 Contact with and (suspected) exposure to COVID-19
CPT/HCPCS: 0241U; 36415; 70450; 71045; 71275; 80053; 83605; 83880; 84484; 85025; 85610; 93005; 93010; 96365; 99284; J1940; Q9967

== ENCOUNTER → 2024-01-17 14:35 | Outpatient (CLI) | payer OTHER, SELFPAY | LOC: RESP 14:36 | PROVIDERS: Family Provider Internal Medicine; PCP Internal Medicine; Referring Provider Internal Medicine Pulmonary Disease; Visit Provider Internal Medicine Pulmonary Disease | DX: J84.112 Idiopathic pulmonary fibrosis (principal); R06.02 Shortness of breath | CPT/HCPCS: 94010; 94729 ==

== ENCOUNTER 2024-04-24 17:44 | Inpatient (IN) | payer OTHER, MEDICARE, SELFPAY ==
[2024-04-24] VITALS (8 sets, daily range): BP systolic 95–114; BP diastolic 57–73; PULSE 60–132; RESP 17–25; TEMP 36–36.3; O2SAT 91–96; BMI 24.5
--- NOTE | 2024-04-24 19:05 | DI.RAD.S_ITS ---
PROCEDURE: XR CHEST 1V INDICATIONS: short of breath TECHNIQUE: One view of the chest was acquired. COMPARISON: [facility], CR, XR CHEST 1V, 09/24/2022, 19:17. FINDINGS: Surgical changes and devices: Left chest wall AICD device with cardiac leads Lungs and pleura: Low lung volumes. Streaky opacities at the bilateral lung bases, probable atelectasis. No pneumothorax. Mediastinum: Mediastinal contours appear normal. Heart size is normal. Bones and chest wall: No suspicious bony lesions. Overlying soft tissues appear unremarkable. IMPRESSION: Low lung volumes. Bibasilar atelectasis. Approved by: China Vasquez M.D.,Ph.D. on 04/24/2024 at 20:44
--- NOTE | 2024-04-24 19:05 | EKG_ITS ---
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
--- NOTE | 2024-04-24 19:13 | PC.NURSE ---
Pt arrived to ED via private vehicle from PCP office after I&D of right calf abscess. Wound slowly weeping and tunneling. Pt arrived and is hypotensive, tachycardic & tachypneic requiring 3L NC. Pt has hx of COPD, CHF, Afib and pacemaker. Pt c/o SOB. Denies cp. Family states that pt has been requiring home o2 more often over the past 2+ weeks. Pt skin pink, warm and dry and no obvious work of breathing observed. Pt a&ox4.
[2024-04-24 19:24] LABS: Add Manual Diff / Slide Review NO; Basophils Absolute Auto 100 /uL (0-100); Basophils Percent Auto 0.9 % (0-2); Eosinophils Absolute Auto 200 /uL (0-450); Eosinophils Percent Auto 1.8 % (2-4); Hematocrit 38.8 % (41-53); Hemoglobin 12.7 g/dL (13.5-17.5); Lymphocytes Absolute Auto 1000 /uL (1100-4500); Lymphocytes Percent Auto 8.1 % (25-40); Mean Corpuscular HGB Conc 32.8 % (30-36); Mean Corpuscular Hemoglobin 30.5 PG (26-34); Mean Corpuscular Volume 92.9 fL (80-100); Monocytes Absolute Auto 1400 /uL (0-900); Monocytes Percent Auto 11.8 % (3-14); Neutrophils Absolute Auto 9400 /uL (1500-7000); Neutrophils Percent Auto 77.4 % (50-75); Platelet Count 258 X10^3/uL (150-400); Red Blood Cell Count 4.17 X10^6/uL (4.5-5.9); Red Cell Distribution Width 15.1 % (11.6-14.8); White Blood Cell Count 12.2 X10^3/uL (4.5-11.0)
[2024-04-24 20:02] LABS: Lactate (Lactic Acid) 2.2 mmol/L (0.7-2.1)
[2024-04-24 20:03] LABS: Alanine Aminotransferase 16 IU/L (<50); Albumin 3.6 g/dL (3.5-5.0); Alkaline Phosphatase 312 U/L (38-126); Aspartate Aminotransferase 35 IU/L (17-59); BUN Creatinine Ratio 34.1 (6-22); Blood Urea Nitrogen 47 mg/dL (9-20); Calcium 9.1 mg/dL (8.4-10.2); Carbon Dioxide 35 mmol/L (22-32); Chloride 89 mmol/L (98-107); Creatine Kinase 23 U/L (55-170); Estimated Glomerular Filt Rate 49 mL/min (>60); Globulin 3.6 g/dL (1.7-4.1); Glucose 141 mg/dL (80-110); HEMOLYSIS < 15 (0-50); Lipase 81 U/L (23-300); Potassium 3.1 mmol/L (3.4-5.1); Sodium 130 mmol/L (137-145); Total Protein 7.2 g/dL (6.3-8.2)
[2024-04-24 20:14] LABS: NT-proBNP (BNP-Adult 18+) 4030 pg/mL (<450); Troponin I 0.017 ng/mL (0.01-0.034)
--- NOTE | 2024-04-24 20:30 | ED.SOB ---
HPI - SOB/Dyspnea General Chief Complaint: Shortness of Breath/Dyspnea Stated Complaint: sent by PCP, infected yary inside lt calf Time Seen by Provider: 04/24/24 19:05 History of Present Illness HPI Narrative: Patient 88-year-old male history of atrial fibrillation on warfarin have a congestive heart failure, presenting today with variety of symptoms. He has had increased shortness of breath over the last 3 days. He has intermittently been on oxygen but continuously on oxygen over the last 3 days. Couple weeks ago he was aggressively diuresed Marky current primary care provider to help with lower leg extremity swelling. However since then his Lasix dose has been decreased significantly has not return increased lower extremity edema. However his right leg there is an abscess and it has progressively gotten more and more red. He denies any sort of fever or chills. He does report increasing shortness of breath hence the need for more oxygen he has a cough but no sore throat he reports that he is coughing up some stuff. He denies any worsening orthopnea. He is now chronically on about 3 L. They also report that last week his INR was greater than 8 so he held his warfarin until 2 days ago when he restarted it at 2.5 mg daily. Related Data Home Medications Medication Instructions Recorded Confirmed fluorouracil 5 % topical cream 1 barbra topical PRN PRN skin cancer 04/30/17 05/01/18 (Efudex) lesions ##0 glucosamine sulfate dipotassium Cl 1 cap PO DAILY ##0 04/30/17 05/01/18 500 mg-chondroitin 400 mg capsule (Glucosamine Sulfate 2 KCL-Chondroitin) multivitamin (Multiple Vitamins 1 tab PO QDAY ##0 04/30/17 05/01/18 tablet) melatonin 5 mg tablet 5 mg PO QHS PRN Sleep 05/01/18 05/13/18 metoprolol succinate 50 mg 50 mg PO BEDTIME 05/01/18 02/22/21 tablet,extended release 24 hr omeprazole 20 mg tablet,delayed 20 mg PO BID 05/01/18 02/22/21 release warfarin 3 mg tablet (Coumadin) 5 mg PO SEEINSTR 05/01/18 02/22/21 Previous Rx's Medication Instructions Recorded hydrocodone 5 mg-acetaminophen 325 1 tab PO Q4-6H PRN pain #20 tabs 05/13/18 mg tablet ([place]) furosemide 20 mg tablet (Lasix) 10 mg (1/2 x 20 mg) PO QAM #10 tabs 10/02/19 nitroglycerin 0.3 mg sublingual 0.3 mg sublingual Q5-15M PRN chest 10/02/19 tablet pain #25 tabs potassium chloride 8 mEq 8 meq PO DAILY #10 caps 10/02/19 capsule,extended release Allergies Allergy/AdvReac Type Severity Reaction Status Date / Time sulfite [SULFITE] Allergy Severe from foods Verified 09/24/22 19:56 Penicillins [PENICILLINS] Allergy Mild Rash Verified 09/24/22 19:56 Patient History Medical History Left foot drop Easy bruisability Fragile skin BCC (basal cell carcinoma of skin) GERD (gastroesophageal reflux disease) Pneumonia Numbness Sleep disorder Scoliosis Closed nondisplaced fracture of pelvis Mixed hyperlipidemia Diabetes Bilateral lower extremity edema Pacemaker CVA (cerebral vascular accident) Afib Surgical History Hx of arthroscopy of shoulder Hx of tonsillectomy Hx of hernia repair Status post bilateral cataract extraction Social History household members: spouse Smoking Status: Never smoker alcohol intake: current Smoking Status: Never smoker alcohol intake frequency: 0-2 drinks per day Alcohol type: hard liquor Substance Use Type: does not use Exam Initial Vital Signs Initial Vital Signs: Vital Signs Temperature 96.8 F L 04/24/24 18:06 Pulse Rate 60 04/24/24 18:06 Respiratory Rate 20 04/24/24 18:06 Blood Pressure 97/63 04/24/24 18:06 Pulse Oximetry 91 04/24/24 18:06 Oxygen Delivery Method Room Air 04/24/24 18:06 GENERAL: Alert 88-year-old male HEENT: Head atraumatic,EOMI, pupils reactive, face symmetric, moist mucous membranes CARDIOVASCULAR: Irregularly irregular RESPIRATORY: Breath sounds equal bilaterally, no wheezes rales or rhonchi. ABDOMEN: Soft, nontender. Normoactive bowel sounds all 4 quadrants. No guarding or rebound. EXTREMITIES: Normal range of motion, no clubbing or edema. Right foot does have pitting edema with distal pedal pulse intact Neurovascularly intact NEUROLOGICAL: Alert and oriented x4.Normal gait and speech. SKIN: Right leg medial sized wound with surrounding erythema from ankle to knee, blanchable Course Orders Ordered: ED Orders 04/24/24 18:13 Wound Culture and Gram Stain Stat 04/24/24 19:05 XR chest 1V Stat EKG-12 Lead Stat 04/24/24 19:09 Complete Blood Count AUTO DIFF Stat Comprehensive Metabolic Panel Stat Lactate (Lactic Acid) Stat Lipase Stat NT-proBNP (BNP-Adult 18+) Stat Troponin & CK Cardiac Panel Stat 04/24/24 19:52 Blood Culture Stat Acetaminophen (Acetaminophen 325 Mg Tablet) 650 mg PO Q6H PRN PRN Reason: Fever/Mild Pain (1-3) Hydrocodone Bitart/Acetaminophen (Hydrocodone/Acet 5/325 Tablet) 1 tab PO Q4H PRN PRN Reason: Pain, Moderate (4-6) Last Admin: 04/24/24 21:42 Dose: 1 tab Documented By: MALIKA Calcium Carbonate (Calcium Carbonate 500 Mg Tab) 1,000 mg PO Q4HR PRN PRN Reason: Dyspepsia Sodium Chloride (Normal Saline 0.9%) 1,000 mls @ 100 mls/hr IV CONT [place] Last Admin: 04/25/24 00:25 Dose: 100 mls/hr Documented By: AM Vancomycin HCl (Vancomycin) 1,000 mg in 200 mls @ 200 mls/hr IV Q24H [place] Melatonin (Melatonin 3 Mg Tablet) 6 mg PO BEDTIME PRN PRN Reason: Insomnia Naloxone HCl (Naloxone 0.4 Mg/Ml Vial) 0.2 mg IV Q2MIN PRN PRN Reason: Opiate Reversal Ondansetron HCl (Ondansetron 4 Mg/2 Ml Inj) 4 mg IV Q8HR PRN PRN Reason: Nausea And Vomiting Sennosides (Sennosides 8.6 Mg Tablet) 17.2 mg PO BEDTIME [place] Vancomycin HCl (Vancomycin Per Pharmacy) 1 request MISC NOW PRN PRN Reason: Wound Healing Discontinued Medications Sodium Chloride (Normal Saline 0.9%) 500 mls @ 1,000 mls/hr IV BOLUS ONE Stop: 04/24/24 21:00 Last Infusion: 04/24/24 22:29 Dose: Infused Documented By: Admin: 04/24/24 20:47 Dose: 1,000 mls/hr Documented By: TAMARA Ceftriaxone Sodium 1,000 mg/ (Sodium Chloride) 100 mls @ 200 mls/hr IV NOW ONE Stop: 04/24/24 20:32 Last Infusion: 04/24/24 21:45 Dose: Infused Documented By: Admin: 04/24/24 20:48 Dose: 200 mls/hr Documented By: TAMARA Vancomycin HCl/Dextrose (Vancomycin) 1,500 mg in 300 mls @ 200 mls/hr IV NOW ONE Stop: 04/24/24 22:34 Last Infusion: 04/24/24 22:29 Dose: 200 mls/hr Documented By: Admin: 04/24/24 21:36 Dose: 200 mls/hr Documented By: MALIKA Potassium Chloride (Potassium Chloride 20 Meq/15 Ml Udc) 40 meq PO NOW ONE Stop: 04/24/24 23:22 Last Admin: 04/25/24 00:25 Dose: 40 meq Documented By: AM Vital Signs Vital signs: Vital Signs - 8 hr 04/24/24 20:39 04/24/24 20:40 04/24/24 21:02 Pulse Rate 98 H 84 132 H Respiratory Rate 18 24 Blood Pressure 95/59 L Pulse Oximetry 96 Oxygen Delivery Method Nasal Cannula Oxygen Flow Rate 3 04/24/24 21:03 04/24/24 21:03 Pulse Rate 132 H Respiratory Rate 23 Blood Pressure 114/73 Pulse Oximetry Oxygen Delivery Method Oxygen Flow Rate MDM - SOB/Dyspnea Lab Data 04/24/24 19:09 04/24/24 19:09 Labs: Lab Results 04/24/24 Range/Units 19:09 WBC 12.2 H (4.5-11.0) X10^3/uL RBC 4.17 L (4.5-5.9) X10^6/uL Hgb 12.7 L (13.5-17.5) g/dL Hct 38.8 L (41-53) % MCV 92.9 (80-100) fL MCH 30.5 (26-34) PG MCHC 32.8 (30-36) % RDW 15.1 H (11.6-14.8) % Plt Count 258 (150-400) X10^3/uL Neut % (Auto) 77.4 H (50-75) % Lymph % (Auto) 8.1 L (25-40) % [place] % (Auto) 11.8 (3-14) % Eos % (Auto) 1.8 L (2-4) % Baso % (Auto) 0.9 (0-2) % Neut # (Auto) 9400 H (6173-9607) /uL Lymph # (Auto) 1000 L (2246-5346) /uL [place] # (Auto) 1400 H (0-900) /uL Eos # (Auto) 200 (0-450) /uL Baso # (Auto) 100 (0-100) /uL Sodium 130 L (137-145) mmol/L Potassium 3.1 L (3.4-5.1) mmol/L Chloride 89 L (98-107) mmol/L Carbon Dioxide 35 H (22-32) mmol/L BUN 47 H (9-20) mg/dL Creatinine 1.38 H (0.66-1.25) mg/dL Estimated GFR 49 L (>60) mL/min BUN/Creatinine Ratio 34.1 H (6-22) Glucose 141 H (80-110) mg/dL Lactate 2.2 H (0.7-2.1) mmol/L Calcium 9.1 (8.4-10.2) mg/dL Total Bilirubin 2.0 H (0.2-1.3) mg/dL AST 35 (17-59) IU/L ALT 16 (<50) IU/L Alkaline Phosphatase 312 H (38-126) U/L Total Creatine Kinase 23 L (55-170) U/L Troponin I 0.017 (0.01-0.034) ng/mL NT-Pro-B Natriuret Pep 4030 H (<450) pg/mL Total Protein 7.2 (6.3-8.2) g/dL Albumin 3.6 (3.5-5.0) g/dL Globulin 3.6 (1.7-4.1) g/dL Albumin/Globulin Ratio 1.0 (1.0-2.8) Lipase 81 (23-300) U/L Imaging Data Chest x-ray: Radiologist's Impression: PROCEDURE: XR CHEST 1V INDICATIONS: short of breath TECHNIQUE: One view of the chest was acquired. COMPARISON: [facility], CR, XR CHEST 1V, 09/24/2022, 19:17. FINDINGS: Surgical changes and devices: Left chest wall AICD device with cardiac leads Lungs and pleura: Low lung volumes. Streaky opacities at the bilateral lung bases, probable atelectasis. No pneumothorax. Mediastinum: Mediastinal contours appear normal. Heart size is normal. Bones and chest wall: No suspicious bony lesions. Overlying soft tissues appear unremarkable. IMPRESSION: Low lung volumes. Bibasilar atelectasis. Approved by: China Vasquez M.D.,Ph.D. on 04/24/2024 at 20:44 ECG Data Attestation: I personally reviewed and interpreted this ECG as follows: Prior ECG tracings: available for review Interpretation: Atrial fibrillation rate 112 PVC noted no acute ischemia similar to prior EKGs MDM Narrative Medical decision making narrative: MDM CC: Leg swelling increase use of oxygen Complicating co-morbidities: Intermittently on home oxygen, AFib on warfarin, CHF, sleep apnea Data collected from: Family members Medical records reviewed: Previous ED visits, last ED visit was in 2022 Differential considered: Sepsis, congestive heart failure, septic shock, cardiogenic shock Exam documented above, pertinent findings include: Patient does have significant right leg lower extremity erythema with wound on the medial side. He is requiring oxygen but breath sounds are clear no wheezing no significant conversational dyspnea. Lower legs do not appear significantly edematous Lab Test results independently reviewed as above. Pertinent findings: INR 1.6, WBC 12.2, lactate 2.2, with repeat 2.5 bilirubin 2.0, creatinine 1.38 previously 1.29, potassium 3.1, BNP 4030 previously 2510 hemoglobin 12.7 hematocrit 38.8 platelets 258, sodium 130, chloride 89 carbon dioxide 35 BUN 47, creatinine 1.38, AST 35 ALT 16 troponin 0.017, lipase 81 Independently reviewed EKG as above: Atrial fibrillation no ischemia Imaging studies independently reviewed: Chest x-ray low lung volume Consultations: Dr. Ghosh hospitalist updated patient's symptoms test results agrees with admission Treatments: 500 cc normal saline bolus Rocephin vancomycin Re-evaluations: Pressure did respond somewhat to a small bolus. It came up to 114/73. Discussion: Patient 80-year-old male with multiple comorbidities presenting to variety of symptoms. He does have obvious cellulitis of his right leg in an obvious wound. The right foot does seem a little bit more swollen but overall he does not appear significantly fluid overloaded. He is requiring more oxygen but lung sounds and chest x-ray are clear. BNP is also elevated more so than it was a year ago. Do not want to give him sepsis fluids due to severe CHF and recent aggressive diuresis. He has given a small 500 cc bolus and blood pressure does improve. He is requiring more oxygen unclear why at this time. INR last week was 8 and has come down to 1.6 today. Family reports that it was 3 a couple days ago. I do not suspect pulmonary embolism at this time although considered. Heart rate is variable but mostly controlled during his ED visit. It does go into the 130s but does not last long. He does not appear to continuously be in AFib with RVR. No rate control medication indicated this time. Discharge Plan Departure Patient Disposition: Admitted As Inpatient Clinical Impression: Cellulitis, CHF (congestive heart failure) Admit Date/Time: 04/24/24 21:06 Admit Provider: Renato Lewis
[2024-04-24] MEDS: SODIUM CHLORIDE 0.9% 500 ML 1000 ML IV (20:47)
[2024-04-24] MEDS: cefTRIAXone 1,000 MG in SODIUM CHLORIDE 0.9% 100 ML 200 MG IV (20:48)
[2024-04-24 20:56] LABS: Reflexed Lactate in 2 Hours Y
[2024-04-24] MEDS: VANCOMYCIN 1,500 MG/300 ML PIGGYBACK 200 MG IV (21:36)
[2024-04-24] MEDS: HYDROCODONE/ACET 5/325 TABLET 1 TAB PO (21:42)
--- NOTE | 2024-04-24 21:52 | PC.NURSE ---
Report called to ABDOUL Tobin RN
--- NOTE | 2024-04-24 22:27 | P.HP_ITS ---
History of Present Illness History of Present Illness Date Patient Seen: 04/24/24 Time Patient Seen: 22:27 Chief complaint: sent by PCP, infected abcess inside lt calf Narrative: The pt is a 88 yo with a hx of a. fib, COPD on 3 lpm NC at home and CHF who presents to the ER as a transfer from his PCP's office for a lesion on his leg and Rt arm that has been somoldering per his words for several months but over the past day started to ooze clear fluid. The pt did fall recently causing his lesion on his rt arm which he denies pain in. He is able to ambulate at home he says. The PCP recently increased the home lasix dose due to chronic swelling in the leg but reduced the dose due to low BP at home, the BP in the ER was 95/57 and the pt was dizzy. His last [facility] was also 8 [facility] Medical History Left foot drop Easy bruisability Fragile skin BCC (basal cell carcinoma of skin) GERD (gastroesophageal reflux disease) Pneumonia Numbness Sleep disorder Scoliosis Closed nondisplaced fracture of pelvis Mixed hyperlipidemia Diabetes Bilateral lower extremity edema Pacemaker CVA (cerebral vascular accident) Afib Surgical History Hx of arthroscopy of shoulder Hx of tonsillectomy Hx of hernia repair Status post bilateral cataract extraction Social History household members: spouse Smoking Status: Never smoker alcohol intake: current Meds Home Medications and Allergies Home Medications Medication Instructions Recorded Confirmed Type fluorouracil 5 % topical cream 1 barbra topical PRN PRN skin cancer 04/30/17 05/01/18 History (Efudex) lesions ##0 glucosamine sulfate dipotassium Cl 1 cap PO DAILY ##0 04/30/17 05/01/18 History 500 mg-chondroitin 400 mg capsule (Glucosamine Sulfate 2 KCL-Chondroitin) multivitamin (Multiple Vitamins 1 tab PO QDAY ##0 04/30/17 05/01/18 History tablet) melatonin 5 mg tablet 5 mg PO QHS PRN Sleep 05/01/18 05/13/18 History metoprolol succinate 50 mg 50 mg PO BEDTIME 05/01/18 02/22/21 History tablet,extended release 24 hr omeprazole 20 mg tablet,delayed 20 mg PO BID 05/01/18 02/22/21 History release warfarin 3 mg tablet (Coumadin) 5 mg PO SEEINSTR 05/01/18 02/22/21 History hydrocodone 5 mg-acetaminophen 325 1 tab PO Q4-6H PRN pain #20 tabs 05/13/18 Rx mg tablet ([place]) furosemide 20 mg tablet (Lasix) 10 mg (1/2 x 20 mg) PO QAM #10 tabs 10/02/19 02/22/21 Rx nitroglycerin 0.3 mg sublingual 0.3 mg sublingual Q5-15M PRN chest 10/02/19 Rx tablet pain #25 tabs potassium chloride 8 mEq 8 meq PO DAILY #10 caps 10/02/19 Rx capsule,extended release Allergies Allergy/AdvReac Type Severity Reaction Status Date / Time sulfite [SULFITE] Allergy Severe from foods Verified 09/24/22 19:56 Penicillins [PENICILLINS] Allergy Mild Rash Verified 09/24/22 19:56 Exam Vital Signs (past 8 hours): - 04/24/24 18:06 04/24/24 20:39 04/24/24 20:40 Temperature 96.8 F L Pulse Rate 60 98 H 84 Respiratory Rate 20 18 Blood Pressure 97/63 95/59 L Pulse Oximetry 91 96 Oxygen Delivery Method Room Air Nasal Cannula Oxygen Flow Rate 3 04/24/24 21:02 04/24/24 21:03 04/24/24 21:03 Temperature Pulse Rate 132 H 132 H Respiratory Rate 24 23 Blood Pressure 114/73 Pulse Oximetry Oxygen Delivery Method Oxygen Flow Rate 04/24/24 21:30 Temperature Pulse Rate 103 H Respiratory Rate 25 H Blood Pressure Pulse Oximetry Oxygen Delivery Method Nasal Cannula Oxygen Flow Rate 3 Oxygen Delivery Method Nasal Cannula Oxygen Flow Rate 3 Const General: cooperative and healthy appearing Resp Auscultation: clear to auscultation bilaterally Cardio Rate: regular rate Rhythm: regular rhythm Extrem Other: right arm on proximal forearm with superficial skin tears, full ROM in the arm/ shoulder. He does have a 3 X 3cm round lesion on medical rt leg/calf without active bleeding. Objective Labs 04/24/24 19:09 04/24/24 19:09 Labs: Laboratory Results - last 24 hr 04/24/24 19:09 WBC 12.2 H RBC 4.17 L Hgb 12.7 L Hct 38.8 L MCV 92.9 MCH 30.5 MCHC 32.8 RDW 15.1 H Plt Count 258 Neut % (Auto) 77.4 H Lymph % (Auto) 8.1 L [place] % (Auto) 11.8 Eos % (Auto) 1.8 L Baso % (Auto) 0.9 Neut # (Auto) 9400 H Lymph # (Auto) 1000 L [place] # (Auto) 1400 H Eos # (Auto) 200 Baso # (Auto) 100 Sodium 130 L Potassium 3.1 L Chloride 89 L Carbon Dioxide 35 H BUN 47 H Creatinine 1.38 H Estimated GFR 49 L BUN/Creatinine Ratio 34.1 H Glucose 141 H Lactate 2.2 H Calcium 9.1 Total Bilirubin 2.0 H AST 35 ALT 16 Alkaline Phosphatase 312 H Total Creatine Kinase 23 L Troponin I 0.017 NT-Pro-B Natriuret Pep 4030 H Total Protein 7.2 Albumin 3.6 Globulin 3.6 Albumin/Globulin Ratio 1.0 Lipase 81 Assessment & Plan Assessment & Plan narrative: 1. right leg cellulitis 2. chronic diastolic CHF with hypotension 3. KATIE 4. Atrial fibrillation with anticoagulation 5. COPD -chronic respiratory failure with hypoxia on oxygen chronically- I spoke with the ER provider regarding the pt's presenting problems, labs and hx, and agree with the decision for admission. I have reviewed the labs showing a leukocytosis of 12, potassium of 3.1, Cr of 1.38 with BNP of >4000. Due to the low BP in the ER, will not give lasix despite the elevated BNP and clinically is not fluid overloaded, also will not give sepsis required bolus of fluids in light of the hx of CHF, even though LA is high and BP is low. Will need to monitor this closely, INR pending at this time, rechecking the labs in the am, PT/OT consulted, may need placement. Time-Based Coding :: [TOTAL MINUTES] spent with patient and on the chart (including review of chart, obtaining history, exam, reviewing outside data, placing orders, documenting exam and treatment plan, and counseling patient) on [DATE].
[2024-04-24 23:32] LABS: Lactate 2HR (Lactic Acid Rflx) 2.5 mmol/L (0.7-2.1)
[2024-04-25] VITALS (7 sets, daily range): BP systolic 89–130; BP diastolic 55–95; PULSE 81–89; RESP 16–18; TEMP 36.2–36.6; O2SAT 92–97
[2024-04-25] MEDS: POTASSIUM CHLORIDE 20 MEQ/15 ML UDC 40 MEQ PO (00:25)
[2024-04-25] MEDS: SODIUM CHLORIDE 0.9% 1,000 ML 100 ML IV ×2 (00:25→17:07)
[2024-04-25] MEDS: ACETAMINOPHEN 325 MG TABLET 650 MG PO ×2 (04:05→11:05)
[2024-04-25 05:37] LABS: Add Manual Diff / Slide Review NO; Basophils Absolute Auto 100 /uL (0-100); Basophils Percent Auto 1.1 % (0-2); Eosinophils Absolute Auto 300 /uL (0-450); Eosinophils Percent Auto 3.2 % (2-4); Hematocrit 34.1 % (41-53); Hemoglobin 11.4 g/dL (13.5-17.5); Lymphocytes Absolute Auto 900 /uL (1100-4500); Lymphocytes Percent Auto 10.7 % (25-40); Mean Corpuscular HGB Conc 33.3 % (30-36); Mean Corpuscular Hemoglobin 31.2 PG (26-34); Mean Corpuscular Volume 93.5 fL (80-100); Monocytes Absolute Auto 1100 /uL (0-900); Neutrophils Absolute Auto 6500 /uL (1500-7000); Platelet Count 224 X10^3/uL (150-400); Red Blood Cell Count 3.65 X10^6/uL (4.5-5.9); Red Cell Distribution Width 14.9 % (11.6-14.8); White Blood Cell Count 8.9 X10^3/uL (4.5-11.0)
[2024-04-25 06:03] LABS: Prothrombin Time 54.6 SECONDS (9.4-12.5)
[2024-04-25 06:05] LABS: BUN Creatinine Ratio 35.2 (6-22); Blood Urea Nitrogen 45 mg/dL (9-20); Calcium 8.3 mg/dL (8.4-10.2); Carbon Dioxide 30 mmol/L (22-32); Chloride 95 mmol/L (98-107); Estimated Glomerular Filt Rate 54 mL/min (>60); Glucose 112 mg/dL (80-110); HEMOLYSIS < 15 (0-50); Potassium 3.6 mmol/L (3.4-5.1); Sodium 131 mmol/L (137-145)
[2024-04-25 06:14] LABS: NT-proBNP (BNP-Adult 18+) 3210 pg/mL (<450)
[2024-04-25 06:26] LABS: INR 4.7 (0.9-1.3)
--- NOTE | 2024-04-25 07:23 | PC.NURSE ---
Admission assessment and home med list unable to be completed with patient during this shift due to confusion and patient unable to tell this RN.
--- NOTE | 2024-04-25 07:24 | PM.PN.1 ---
Subjective Subjective Interval history: Interval summary: The pt is a 88 yo with a hx of a. fib, COPD on 3 lpm NC at home and CHF who presents to the ER as a transfer from his PCP's office for a lesion on his leg and Rt arm that has been smoldering per his words for several months but over the past day started to ooze clear fluid. The pt did fall recently causing his lesion on his rt arm which he denies pain in. He is able to ambulate at home he says. The PCP recently increased the home lasix dose due to chronic swelling in the leg but reduced the dose due to low BP at home, the BP in the ER was 95/57 and the pt was dizzy. His last INR was also 8 several weeks ago S: A little short of breath. He was having tachycardia today and low blood pressure. He was having a lot of pain from his right leg. He was given a 500 cc saline bolus. Exam Vital Signs (past 8 hours): - 04/25/24 03:57 Temperature 97.6 F Pulse Rate 86 Respiratory Rate 18 Blood Pressure 107/55 L Pulse Oximetry 96 Oxygen Flow Rate 2 Oxygen Delivery Method Nasal Cannula Oxygen Flow Rate 2 Narrative Exam Narrative: NAD, alert and oriented. Fluent speech. Lungs are clear, normal rate and effort. Heart is regular, no murmur gallop or rub. Abdomen is soft, non distended. Extremities are free of edema. Right leg is red [id number]. There is also some swelling. No clear induration. There is a medial wound which is dressed. Objective Labs 04/25/24 05:13 04/25/24 05:13 Labs: Laboratory Results - last 24 hr 04/24/24 04/24/24 04/25/24 19:09 22:15 05:13 WBC 12.2 H 8.9 RBC 4.17 L 3.65 L Hgb 12.7 L 11.4 L Hct 38.8 L 34.1 L MCV 92.9 93.5 MCH 30.5 31.2 MCHC 32.8 33.3 RDW 15.1 H 14.9 H Plt Count 258 224 Neut % (Auto) 77.4 H 73.0 Lymph % (Auto) 8.1 L 10.7 L [place] % (Auto) 11.8 12.0 Eos % (Auto) 1.8 L 3.2 Baso % (Auto) 0.9 1.1 Neut # (Auto) 9400 H 6500 Lymph # (Auto) 1000 L 900 L [place] # (Auto) 1400 H 1100 H Eos # (Auto) 200 300 Baso # (Auto) 100 100 PT 54.6 H INR 4.7 H* Sodium 130 L 131 L Potassium 3.1 L 3.6 Chloride 89 L 95 L Carbon Dioxide 35 H 30 BUN 47 H 45 H Creatinine 1.38 H 1.28 H Estimated GFR 49 L 54 L BUN/Creatinine Ratio 34.1 H 35.2 H Glucose 141 H 112 H Lactate 2.2 H 2.5 H Calcium 9.1 8.3 L Total Bilirubin 2.0 H AST 35 ALT 16 Alkaline Phosphatase 312 H Total Creatine Kinase 23 L Troponin I 0.017 NT-Pro-B Natriuret Pep 4030 H 3210 H Total Protein 7.2 Albumin 3.6 Globulin 3.6 Albumin/Globulin Ratio 1.0 Lipase 81 PFSH Medical History Left foot drop Easy bruisability Fragile skin BCC (basal cell carcinoma of skin) GERD (gastroesophageal reflux disease) Pneumonia Numbness Sleep disorder Scoliosis Closed nondisplaced fracture of pelvis Mixed hyperlipidemia Diabetes Bilateral lower extremity edema Pacemaker CVA (cerebral vascular accident) Afib Surgical History Hx of arthroscopy of shoulder Hx of tonsillectomy Hx of hernia repair Status post bilateral cataract extraction Social History household members: spouse Smoking Status: Never smoker alcohol intake: current Assessment & Plan Assessment & Plan narrative: 1. Right leg cellulitis, present on admission and active. 2. Chronic diastolic CHF with hypotension, present on admission and improved. 3. KATIE, present on admission and improved. 4. Atrial fibrillation with anticoagulation, present on admission and stable. 5. COPD, present on admission and stable. 6. Chronic respiratory failure with hypoxia on oxygen chronically, present on admission and stable. PLAN: -continue antibiotics. -nares MRSA screen. -IV fluids and monitor blood pressure. -monitor renal function. -monitor INR. -physical therapy and occupational therapy evaluations as well as discharge planning. -monitor breathing and atrial fibrillation rate. DNR. Inpatient status with a 2 midnight expectation for medical necessity. STEPAN is April 26. Time-Based Coding :: 20 min spent with patient and on the chart (including review of chart, obtaining history, exam, reviewing outside data, placing orders, documenting exam and treatment plan, and counseling patient) on 04/25.
--- NOTE | 2024-04-25 10:05 | PT.IIE ---
Current Diagnoses Cellulitis of right lower limb (04/24/24) Surgical History (Last Reviewed 04/25/24 @ 07:26 by Charlie May MD) Hx of arthroscopy of shoulder Hx of hernia repair Hx of tonsillectomy Status post bilateral cataract extraction Medical History (Last Reviewed 04/25/24 @ 07:26 by Charlie May MD) Afib BCC (basal cell carcinoma of skin) Bilateral lower extremity edema Closed nondisplaced fracture of pelvis CVA (cerebral vascular accident) Diabetes Easy bruisability Fragile skin GERD (gastroesophageal reflux disease) Left foot drop Mixed hyperlipidemia Numbness Pacemaker Pneumonia Scoliosis Sleep disorder Physical Therapy Inpatient Evaluation/Re-Eval M1 PT/OT-IP Prior Functional Status Start: 04/25/24 12:29 Freq: NEEDED Status: Active Protocol: Document 04/25/24 10:05 AB (Rec: 04/25/24 12:46 AB [id number]) Medical Review Prior Functional Status Medical History Reviewed Yes Communication able to make needs known Mobility and Gait pt stated that he was modified independent with all mobilities and ambulation using a FWW Social History Household Members spouse Living Arrangements Apartment/Condo Number of Floors (Floors) 3 or More Floors Number of Stairs To Enter/Railing? has a ramp to enter and then has stair lift to get into other floor levels of the house Home Environment Standard Height Toilet,Walk in Shower Home Equipment Front Wheel Walker,Shower Seat without Backrest,Hand Held Shower,Grab Bars Near Toilet, Grab Bars In Shower Additional Social History Comment pt stated that his daughter and step son comes in daily and stays with them for ~ 1/2 day to assist them M2 PT-IP Current Condition Start: 04/25/24 12:29 Freq: NEEDED Status: Active Protocol: Document 04/25/24 10:05 AB (Rec: 04/25/24 12:46 AB [id number]) Physical Therapy Current Condition Current Condition Evaluation Date 04/25/24 Treatment Diagnosis CHF; R LE cellulitis; difficulty in walking Onset Date 04/24/24 M3 PT-IP Subjective Start: 04/25/24 12:29 Freq: NEEDED Status: Active Protocol: Document 04/25/24 10:05 AB (Rec: 04/25/24 12:46 AB [id number]) Subjective Physical Therapy Visit Type Type Initial Evaluation Visit Start Time 10:05 Visit Stop Time 10:30 Number of REMEDIAL TEACHER Visits 0 Physical Therapy Visit Comments Patient Comments requesting to use the toilet Therapy Pain Assessment Pain When Pain Assessed At Rest Pain Present Pain Present Pain Reported Location Right Leg Scale Used pain scale not stated Pain Management Techniques Distraction,Modification of Treatment,Re-positioning, Timing of Activity with Medications M4 PT-IP Mobility and Gait Start: 04/25/24 12:29 Freq: NEEDED Status: Active Protocol: Document 04/25/24 10:05 AB (Rec: 04/25/24 12:46 AB [id number]) PT-Bed Mobility Assessment Supine to Sit Supine to Sit Maximum Assistance PT-Transfer Assessment Sit to and From Stand Sit to and from Stand Maximum Assistance,1 Person Assistance,Use of Upper Extremities Equipment Transfer Assistive Device Gait Belt,Front Wheeled Walker Orthotic/Prosthetic Devices or Brace: No Transfers Transfer Destination Bedside Commode Transfer Technique Stand Step Pivot Transfer Ability Level of Assist Maximum Assistance,1 Person Assistance,Use of Upper Extremities Comments Mobility Comments pt supine in bed and agreeable to do PT. pt requesting use the toilet. obtained PLOF and home set up from pt. BP in supine: 96/58. pt completed supine to sit max A and max cues. c/o dizziness but dissipated. BP in sittin /57. pt sat on EOB for a few minutes. pt really wanting to get up and use the toilet. agreed to use bedside commode for now. positioned bedside commode next to pt. pt completed sit to stand from EOB max A and max cues. pt was able to step transfer to bedside commode using fWW mod A and cues. BP in sittin /59. pt wanting to use the toilet for a few minutes. Left pt with NAC. Gait Assessment Comments Gait Comments not attempted due to low BP PT-Balance Assessment Sitting Balance and Reactions Static Sitting Balance Ability Normal Dynamic Sitting Balance Ability Good Standing Balance and Reactions Static Standing Balance Ability Fair Dynamic Standing Balance Ability Poor Device Used FWW M5 PT-IP Objective Assessments Start: 04/25/24 12:29 Freq: NEEDED Status: Active Protocol: Document 04/25/24 10:05 AB (Rec: 04/25/24 12:46 AB [id number]) Orientation Orientation/Cognition Level of Alertness Alert Orientation Name,Place,Situation Language Function Ability Hard of Hearing Safety Awareness Decreased Safety Awareness Memory Description Short Term Impaired Strength Lower Extremity Strength Assessment Bilaterally Impaired Knee 4-/5 Sensation Assessment Sensation Sensation Description Numbness Comments Sensation Comments chronic feet numbness per pt Muscle Tone Muscle Tone WNL Yes M6 PT-IP Treatment Start: 04/25/24 12:29 Freq: NEEDED Status: Active Protocol: Document 04/25/24 10:05 AB (Rec: 04/25/24 12:46 AB [id number]) Physical Therapy Treatment Education Education Provided Safety M7 PT-IP Assessment and Plan Start: 04/25/24 12:29 Freq: NEEDED Status: Active Protocol: Document 04/25/24 10:05 AB (Rec: 04/25/24 12:46 AB [id number]) PT Summary Assessment and Plan Potential Rehabilitation Potential Fair Status of Condition at Evaluation Unstable Summary Impairments Pain,ROM,Strength,Balance, Coordination,Sensation,Tone, Cognition,Bed Mobility, Transfers,Gait,Activity Tolerance Assessment Summary pt is an 88 y/o M who is admitted for CHF and RLE cellulitis. pt requiring max A for bed mobility and transfers using FWW. pt with low BP limiting mobility and activity tolerance. pt may require SNF rehab at this time . will continue to assess. Goals Bed Mobility Goal Standby Assistance Transfer Goal Standby Assistance,Front Wheeled Walker Gait Goal Standby Assistance,Front Wheel Walker Gait Distance 50 Other Goals improve bed mobility, transfers, ambulation using FWW ~ 150 ft mod I Days to Meet Goals 10 Frequency of Treatment Frequency Of Treatment Once a Day Treatment Plan Physical Therapy Treatment Plan Bed Mobility Training,Transfer Training,Gait Training, Therapeutic Exercise,Balance Retraining,Discharge Planning, Hot or Cold Pack,Neuromuscular Re-ed,Coordination Retraining ,Manual Therapy Precautions Other Precautions BP; falls Recommendations To Nursing Amount of Assist Needed 1 Person Assist Discharge Recommendations PT Discharge Recommendations SNF Rehab Transportation Needs at Discharge Private Vehicle,Wheelchair/ Cabulance
--- NOTE | 2024-04-25 10:30 | OT.IPNOTE ---
Per nursing hold OT eval as pt having high HR and low BP, to check on pt later if medically appropriate.
[2024-04-25] MEDS: SODIUM CHLORIDE 0.9% 500 ML 1000 ML IV (10:59)
[2024-04-25 13:54] LABS: Lactate (Lactic Acid) 2.8 mmol/L (0.7-2.1)
--- NOTE | 2024-04-25 14:00 | OT.IP.EVAL ---
Current Diagnoses Cellulitis of right lower limb (04/24/24) Past Medical History (Last Reviewed 04/25/24 @ 07:26 by Charlie May MD) Afib BCC (basal cell carcinoma of skin) Bilateral lower extremity edema Closed nondisplaced fracture of pelvis CVA (cerebral vascular accident) Diabetes Easy bruisability Fragile skin GERD (gastroesophageal reflux disease) Left foot drop Mixed hyperlipidemia Numbness Pacemaker Pneumonia Scoliosis Sleep disorder Surgical History (Last Reviewed 04/25/24 @ 07:26 by Charlie May MD) Hx of arthroscopy of shoulder Hx of hernia repair Hx of tonsillectomy Status post bilateral cataract extraction Occupational Therapy Inpatient Evaluation/Re-Eval M1 PT/OT-IP Prior Functional Status Start: 04/25/24 12:29 Freq: NEEDED Status: Active Protocol: Document 04/25/24 14:05 [facility] (Rec: 04/25/24 14:23 [facility] [id number]) Medical Review Prior Functional Status Medical History Reviewed Yes Communication able to make needs known Mobility and Gait pt stated that he was modified independent with all mobilities and ambulation using a FWW Activities of Daily Living and IADL's Pt states since falling 3 weeks ago has needed assist for most ADL needs now. Social History Household Members spouse Living Arrangements Apartment/Condo Number of Floors (Floors) 3 or More Floors Number of Stairs To Enter/Railing? has a ramp to enter and then has stair lift to get into other floor levels of the house Home Environment Standard Height Toilet,Walk in Shower Home Equipment Front Wheel Walker,Shower Seat without Backrest,Hand Held Shower,Grab Bars Near Toilet, Grab Bars In Shower Additional Social History Comment pt stated that his daughter and step son comes in daily and stays with them for ~ 1/2 day to assist them M2 OT-IP Current Condition Start: 04/25/24 14:04 Freq: Status: Active Protocol: Document 04/25/24 14:05 [facility] (Rec: 04/25/24 14:23 [facility] [id number]) Occupational Therapy Current Condition Current Condition Evaluation Date 04/25/24 Treatment Diagnosis R LE cellulitis, CHF Diagnosis Onset Date 04/24/24 M3 OT- IP Subjective and Pain Start: 04/25/24 14:04 Freq: Status: Active Protocol: Document 04/25/24 14:05 [facility] (Rec: 04/25/24 14:23 [facility] [id number]) OT- Subjective Occupational Therapy Visit Type Type Initial Evaluation Visit Start Time 13:10 Visit Stop Time 14:00 Notes Nursing okay to see ot for OT eval. Occupational Therapy Visit Comments Patient Comments Pt agreed to get up and pt's , daughter in law and brother in the room along with case management. Patient/Caregiver Goals TO go home OT Pain Assessment Pain When Pain Assessed During Mobility Pain Present Pain Present Pain Reported Location Right Leg Pain Behaviors Holding Area,Moaning,Wincing M4 OT- IP ADL's Start: 04/25/24 14:04 Freq: Status: Active Protocol: Document 04/25/24 14:05 [facility] (Rec: 04/25/24 14:23 [facility] [id number]) OT [id number] Comments OT Self-Feeding Comments Not at meal time. OT ADL-Grooming Comments OT Grooming Comments Pt able to wash his hands after set-up of wash cloth. OT ADL-Oral Care Comments Oral Care Comments Not performed, as pt states did earlier. OT ADL-Dressing General Eval Lower Body Dressing Ability Maximum Assistance Comments OT Dressing Comments Pt will need assist for all LB dressing needs due to skin issues and pain. OT ADL-Toileting General Evaluation Toileting Ability Standby Assistance,Moderate Assistance Areas Needing Assistance Perform Perineal Hygiene Comments OT Toileting Comments Pt able to use the urinal with set-up on the edge of the bed . If having to use the toilet would need assist for clothing management needs. OT ADL-Bathing Comments OT Bathing Comments Pt will need assist. M5 OT- IP IADL's Start: 04/25/24 14:04 Freq: Status: Active Protocol: Document 04/25/24 14:05 [facility] (Rec: 04/25/24 14:23 [facility] [id number]) OT-Instrumental Activities of Daily Living Deficits IADL Deficits Identified Deficits Home Safety Awareness Awareness of Need for Assistance at Home Decreased Awareness Medication Management Medication Management Comments Pt's family will be taking over medication needs. Money Management Money Management Caregiver Provides Assistance Siebel Crm Developer Siebel Crm Developer Caregiver Provides Assist Driving Driving Comments Pt states can drive once feeling better, however family insists pt will not drive. M6 OT- IP Functional Cognition Start: 04/25/24 14:04 Freq: Status: Active Protocol: Document 04/25/24 14:05 [facility] (Rec: 04/25/24 14:23 [facility] [id number]) Cognitive Factors Limiting Selfcare Function Cognitive Ability Level of Alertness Alert Patient Orientation Name,Age,Place Attention Span Ability Capable of Focused Attention, Capable of Sustained Attention Ability to Follow Commands Able to Follow One Step Commands with Increased Time, Able to Follow One Step Commands with Repetition Memory Description Short Term Impaired Cognitive Comments Cognitive Assessment Comments Pt a little [place] and will benefit from SLUMS. Pt insistent on going home. OT- Vision and Hearing OT- Hearing Assessment OT- Hearing Assessment Hearing Impaired OT- Vision Assessment Visual Acuity Glasses All The Time Visual Attentiveness WFL Occular Pursuits WFL M7 OT- IP Mobility and Balance Start: 04/25/24 14:04 Freq: Status: Active Protocol: Document 04/25/24 14:05 [facility] (Rec: 04/25/24 14:23 [facility] [id number]) OT- Bed Mobility Assessment Supine to Sit Supine to Sit Assist Minimal Assistance Sit to Supine Sit to Supine Assist Minimal Assistance Scooting Scooting to Edge of Bed Contact Guard Assistance OT-Transfer Assessment Sit to and From Stand Sit to and from Stand Minimal Assistance Technique Transfer Destination Bed Devices Transfer Assistive Devices Gait Belt,Front Wheeled Walker OT- Balance Assessment Sitting Balance and Reactions Static Sitting Balance Ability Good Dynamic Sitting Balance Ability Fair Standing Balance and Reactions Static Standing Balance Ability Fair Dynamic Standing Balance Ability Fair M8 OT- IP Objective Assessments Start: 04/25/24 14:04 Freq: Status: Active Protocol: Document 04/25/24 14:05 [facility] (Rec: 04/25/24 14:23 [facility] [id number]) OT Gross Range of Motion Upper Extremity Range of Motion Assessment Bilaterally Impaired ROM Impairments RUE 0-20 adnd LUE 0-95 shoulder flexion. OT Strength Upper Extremity Strength Assessment Bilaterally Impaired M9 OT- IP Assessment and Plan Start: 04/25/24 14:04 Freq: Status: Active Protocol: Document 04/25/24 14:05 [facility] (Rec: 04/25/24 14:23 [facility] [id number]) OT Summary Assessment and Plan Potential Rehabilitation Potential Good Analytic Complexity at Evaluation Moderate Summary OT Impairments Pain,Range of Motion,Strength, Balance,Functional Cognition, Functional Mobility,Grooming, Dressing,Toileting,Bathing, Toilet Transfers,Shower Transfers,Activity Tolerance Progress Towards Goals Slow Progress due to Pain,Slow Progress due to Medical Issues Assessment Summary Pt MOD complexity and main barriers are pain, decreased activity tolerance, and now continuing to needs assist for dressing,toileting , and bathing needs since falling several months ago. Pt will greatly benefit from 24/7 assist and home health versus SNF pending progress. Goals Grooming Goal Independent Dressing Goal Minimal Assistance Toileting Goal Minimal Assistance Bathing Goal Minimal Assistance Toilet Transfer Goal Standby Assistance Shower Transfer Goal Contact Guard Assistance Days to Meet Goals 15 Frequency of Treatment Other frequency 5x/week Treatment Plan OT Treatment Plan ADL Training,Functional Mobility,Patient/Family Education,Discharge Planning Other Treatment Recommendations and Next SLUMS Treatment Focus Discharge Recommendations OT Discharge Recommendations Home with 24/7 Assist Available,Home Health,SNF Rehab,Home vs SNF Home Equipment Needs BSC, adjustable bed/hospital bed Transportation Needs at Discharge Private Vehicle,Wheelchair/ Cabulance
--- NOTE | 2024-04-25 14:32 | CM.DANOTE ---
Addendum entered by AMELIA Avitia 04/25/24 16:24: ADD: [facility] cannot accept. Patient has [facility] A only and [employer] for outpatient needs. Need to attempt referral to [facility]. Original Note: Initial DCP Assessment Note Pt is a 88 yo male, resident of [place], arrives with SOB, leg swelling, CHF. Admitted for further management and work up for LE cellulitis. PCP: Uli Antunez Payer: MELA/samra Met at bedside along with JEANNIE Caal w/patient, spouse Lilo, brother Miko Souza and daughter in law (visiting from [place]) Adelita August [phone]. According to our conversation: Patient has been requiring more assist recently since a fall at home. Patient is unsteady when up, uses a walker, needs assist with most ADLs due to weakness and unsteadiness. Spouse Lilo has hx of a failed back surgery that has caused her a lot of pain making activity tolerance and lifting difficult. LISETH Nagy is visiting from [place] for the last few weeks and reports they met with a caregiver agency this morning that anticipates having caregivers ready to start next Sunday in patient's home. Discussed HH vs SNF and patient prefers to return home. LISETH proposes a discharge home Sunday or Sunday if possible so that patient's brother Harley can take him home and get patient to medical appts in [place] Sunday. [facility] preference. SNF back up choice is [facility]. Referral started with both [facility] ([facility] and HH order done) and [facility]. PT recommending SNF, OT saw this afternoon and rec is HH and 12/03 assist vs SNF. If SNF, need PASRR, CM team following closely as medical plan of care and discharge plan unfolds. AMELIA Linton Discharge Planning/Care Management CM Discharge Assessment Start: 04/25/24 14:25 Freq: Status: Active Protocol: Document 04/25/24 14:26 DONNY (Rec: 04/25/24 14:32 DONNY [id number]) Discharge Planning Assessment Assigned Leave Manager AMELIA Bal DPOA/Assigned Designee Name Lilo Garcia, spouse Contact Information [phone], Advance Directives? Yes Advance Directives on File No History Provided By Patient,Family Member, Significant Other,Medical Record Prior Living Arrangements Apartment/Condo Household Members spouse Type of transporation used prior to Relies on Others admit Independent with ADL's No Is patient alert and oriented? Yes Needs Assistance With Bathing,Grooming,Meal Prep, Toileting,Managing Medications ,Home Chores / Shopping Patient/Family Preference Home with Home Health Barriers to Discharge Yes Comment Family is trying to secure in home care for patient and spouse. Transportation Arrangement TBD Referrals Initiated [facility],Home Health Additional Comment 1. Home w/family, caregivers, [facility] (referral started) 2. back up [facility] ( referral started) If patient plan is home with home health Yes : Has signed face to face form been completed? If patient plan is SNF: Has PASSR been No completed? SNF/HH Preference SNF: [facility] HH: [facility] Whiteboard Updated in Patient Room with Yes name and ext. # of Leave Manager
[2024-04-25 15:17] LABS: Reflexed Lactate in 2 Hours Y
[2024-04-25 16:06] LABS: Lactate 2HR (Lactic Acid Rflx) 2.9 mmol/L (0.7-2.1)
--- NOTE | 2024-04-25 18:34 | PC.NURSE ---
Pt had episode of HR 130-140 and low B/P. HR increased with activity. Tele = A-fib Dsg changed to RLE, wound oozing clear drainage, ' Med for discomfort w/good relief. Call light w/in reach, Bed alarm on for pt safety. Continue w/plan of care.
[2024-04-25] MEDS: GABAPENTIN 100 MG CAPSULE PO (20:56)
[2024-04-25] MEDS: SENNOSIDES 8.6 MG TABLET 17.2 MG PO (20:56)
[2024-04-25] MEDS: VANCOMYCIN 1,000 MG/200 ML PIGGYBACK 200 MG IV (20:57)
[2024-04-25] MEDS: MELATONIN 3 MG TABLET 6 MG PO (20:57)
[2024-04-26] VITALS (14 sets, daily range): BP systolic 91–136; BP diastolic 47–86; PULSE 76–132; RESP 16–18; TEMP 36.2–37; O2SAT 92–97
--- NOTE | 2024-04-26 05:07 | PC.NURSE ---
1922: This RN messaged Hospitalist Dr. Lewis, making him aware of patients lactate results, requesting a recheck. Dr. Lewis No intervention at this time due to the patient?s severe CHF, high BNP
[2024-04-26] MEDS: HYDROCODONE/ACET 5/325 TABLET 1 TAB PO ×2 (06:04→10:16)
[2024-04-26] MEDS: SODIUM CHLORIDE 0.9% 1,000 ML 100 ML IV (08:22)
[2024-04-26] MEDS: GABAPENTIN 100 MG CAPSULE PO ×3 (08:29→21:21)
[2024-04-26] MEDS: METOPROLOL ER 50 MG TABLET 100 MG PO (08:29)
[2024-04-26] MEDS: FUROSEMIDE 40 MG TABLET PO ×2 (08:34→16:50)
[2024-04-26 09:05] LABS: Add Manual Diff / Slide Review NO; Basophils Absolute Auto 100 /uL (0-100); Eosinophils Absolute Auto 200 /uL (0-450); Eosinophils Percent Auto 2.3 % (2-4); Hematocrit 36.4 % (41-53); Hemoglobin 12.1 g/dL (13.5-17.5); Lymphocytes Absolute Auto 1000 /uL (1100-4500); Lymphocytes Percent Auto 11.7 % (25-40); Mean Corpuscular HGB Conc 33.2 % (30-36); Mean Corpuscular Hemoglobin 31.1 PG (26-34); Mean Corpuscular Volume 93.7 fL (80-100); Monocytes Absolute Auto 1000 /uL (0-900); Monocytes Percent Auto 11.9 % (3-14); Neutrophils Absolute Auto 6400 /uL (1500-7000); Neutrophils Percent Auto 73.1 % (50-75); Platelet Count 227 X10^3/uL (150-400); Red Blood Cell Count 3.88 X10^6/uL (4.5-5.9); Red Cell Distribution Width 15.2 % (11.6-14.8); White Blood Cell Count 8.7 X10^3/uL (4.5-11.0)
[2024-04-26 09:15] LABS: Albumin 3.1 g/dL (3.5-5.0); Chloride 100 mmol/L (98-107); HEMOLYSIS < 15 (0-50); Potassium 3.6 mmol/L (3.4-5.1); Sodium 135 mmol/L (137-145)
[2024-04-26 09:34] LABS: Lactate (Lactic Acid) 1.9 mmol/L (0.7-2.1)
[2024-04-26 09:35] LABS: Alanine Aminotransferase 17 IU/L (<50); Albumin Globulin Ratio 0.9 (1.0-2.8); Alkaline Phosphatase 329 U/L (38-126); Aspartate Aminotransferase 36 IU/L (17-59); BUN Creatinine Ratio 33.3 (6-22); Bilirubin Total 1.3 mg/dL (0.2-1.3); Blood Urea Nitrogen 36 mg/dL (9-20); Calcium 8.3 mg/dL (8.4-10.2); Carbon Dioxide 28 mmol/L (22-32); Estimated Glomerular Filt Rate > 60 mL/min (>60); Globulin 3.3 g/dL (1.7-4.1); Glucose 131 mg/dL (80-110); Magnesium 2.5 mg/dL (1.6-2.3); Total Protein 6.4 g/dL (6.3-8.2)
--- NOTE | 2024-04-26 11:05 | PT.IPTN ---
Current Diagnoses Cellulitis of right lower limb (04/24/24) Physical Therapy Treatment Note M2 PT-IP Current Condition Start: 04/25/24 12:29 Freq: NEEDED Status: Active Protocol: Document 04/25/24 10:05 AB (Rec: 04/25/24 12:46 AB [id number]) Physical Therapy Current Condition Current Condition Evaluation Date 04/25/24 Treatment Diagnosis CHF; R LE cellulitis; difficulty in walking Onset Date 04/24/24 M3 PT-IP Subjective Start: 04/25/24 12:29 Freq: NEEDED Status: Active Protocol: Document 04/26/24 11:55 TS (Rec: 04/26/24 12:12 TS [id number]) Subjective Physical Therapy Visit Type Type Treatment Note Visit Start Time 11:05 Visit Stop Time 11:50 Number of ASSEMBLER BICYCLE Visits 1 Physical Therapy Visit Comments Patient Comments Pt found resting in bed, reports pain is 1/10 in RLE while in bed, goes to 10/10 with mobility. Pt is agreeable to PT. Therapy Pain Assessment Pain When Pain Assessed During Mobility Pain Present Pain Present Pain Reported Location Right Leg Intensity 10 Scale Used Numeric (0 - 10) M4 PT-IP Mobility and Gait Start: 04/25/24 12:29 Freq: NEEDED Status: Active Protocol: Document 04/26/24 11:55 TS (Rec: 04/26/24 12:12 TS [id number]) PT-Bed Mobility Assessment Supine to Sit Supine to Sit Standby Assistance,1 Person Assistance,Head of Bed Elevated Sit to Supine Sit to Supine Minimal Assistance,1 Person Assistance Scooting Scooting to Edge of Bed Standby Assistance PT-Transfer Assessment Sit to and From Stand Sit to and from Stand Minimal Assistance,1 Person Assistance Equipment Transfer Assistive Device Gait Belt,Front Wheeled Walker Orthotic/Prosthetic Devices or Brace: No Comments Mobility Comments BP in supine 98/71, Spo2 99% on 4L's of o2. Supine to sit SBA with BUE support and HOB elevated 30D, pt is slow to sit up to EOB. STS with FWW Gali for balance, pt has a posterior lean in standing and braces LE's against bed for support. BP in standing 98/72. He ambulated in the room ~ 3x20'CGA/SBA, pt has flexed posture and some unsteadiness. Sit to supine into bed Gali for RLE. Pt was left back in bed, all needs met. Gait Assessment Gait Gait Assistance Required: Standby Assistance,Contact Guard Assist,1 Person Assist Distance (Feet) 60 Assistive Devices Assistive Device Gait Belt,Front Wheeled Walker Gait Deviations General Gait Pattern Antalgic,Decreased Stride Length,Decreased Feet Clearance,Flexed Trunk Factors Limiting Gait Function Factors Limiting Gait Function Decreased Activity Tolerance, Decreased Strength,Pain,Poor Balance,Poor Safety Awareness Comments Gait Comments See mobility comments PT-Balance Assessment Sitting Balance and Reactions Static Sitting Balance Ability Good Dynamic Sitting Balance Ability Fair Standing Balance and Reactions Static Standing Balance Ability Fair Dynamic Standing Balance Ability Fair Device Used FWW M5 PT-IP Objective Assessments Start: 04/25/24 12:29 Freq: NEEDED Status: Active Protocol: Document 04/25/24 10:05 AB (Rec: 04/25/24 12:46 AB [id number]) Orientation Orientation/Cognition Level of Alertness Alert Orientation Name,Place,Situation Language Function Ability Hard of Hearing Safety Awareness Decreased Safety Awareness Memory Description Short Term Impaired Strength Lower Extremity Strength Assessment Bilaterally Impaired Knee 4-/5 Sensation Assessment Sensation Sensation Description Numbness Comments Sensation Comments chronic feet numbness per pt Muscle Tone Muscle Tone WNL Yes M6 PT-IP Treatment Start: 04/25/24 12:29 Freq: NEEDED Status: Active Protocol: Document 04/26/24 11:55 TS (Rec: 04/26/24 12:12 TS [id number]) Physical Therapy Treatment Education Education Provided Safety M7 PT-IP Assessment and Plan Start: 04/25/24 12:29 Freq: NEEDED Status: Active Protocol: Document 04/26/24 11:55 TS (Rec: 04/26/24 12:12 TS [id number]) PT Summary Assessment and Plan Potential Rehabilitation Potential Fair Summary Impairments Pain,ROM,Strength,Balance, Coordination,Sensation,Tone, Cognition,Bed Mobility, Transfers,Gait,Activity Tolerance Progress Towards Goals Progressing Toward Goals Assessment Summary Ajay made some progress with his mobility this session but is limited by pain and decreased activity tolerance. Pt improved bed mobility to SBA/Gali for assistance with RLE. He progressed his gait to ~60' with use of FWW. He has increased pain with wbering on RLE. Pt and brother rpeort he will have 12/03 caregivers starting Sunday or Sunday and family can assist until then. PT is recommending home with 24/7 assist and HHPT vs SNF. Goals Bed Mobility Goal Standby Assistance Transfer Goal Standby Assistance,Front Wheeled Walker Gait Goal Standby Assistance,Front Wheel Walker Gait Distance 50 Other Goals improve bed mobility, transfers, ambulation using FWW ~ 150 ft mod I Days to Meet Goals 10 Frequency of Treatment Frequency Of Treatment Once a Day Treatment Plan Physical Therapy Treatment Plan Bed Mobility Training,Transfer Training,Gait Training, Therapeutic Exercise,Balance Retraining,Discharge Planning, Hot or Cold Pack,Neuromuscular Re-ed,Coordination Retraining ,Manual Therapy Precautions Other Precautions BP; falls Recommendations To Nursing Amount of Assist Needed 1 Person Assist Discharge Recommendations PT Discharge Recommendations Home with 24/7 Assist Available,SNF Rehab,Home vs SNF Transportation Needs at Discharge Private Vehicle,Wheelchair/ Cabulance
--- NOTE | 2024-04-26 11:17 | DI.US.S_ITS ---
PROCEDURE: US EXTREMITY NONVASC LOWER RT INDICATIONS: R calf eval for abscess TECHNIQUE: Real-time scanning was performed of the right calf , with image documentation. COMPARISON: None. FINDINGS: There is subcutaneous edema throughout the evaluated area. Underlying the open wound there is a focal hypoattenuating fluid collection which measures approximately 1 cm in depth and at least 3 cm by 4 cm en face. There is no color Doppler signal within this fluid collection. There is no adjacent hyperemia. Overlying skin is thickened. IMPRESSION: Focal fluid collection subjacent to the reported open wound concerning for abscess versus hematoma. Dictated by: Leni Jon M.D. on 04/26/2024 at 15:13 Approved by: Leni Jon M.D. on 04/26/2024 at 15:15
[2024-04-26 11:48] LABS: Prothrombin Time 56.3 SECONDS (9.4-12.5)
[2024-04-26 11:50] LABS: INR 4.8 (0.9-1.3)
--- NOTE | 2024-04-26 13:16 | CM.DPC ---
Addendum entered by AMELIA Salgado 04/26/24 14:27: ADD: Per RN, pt and spouse now arguing with Dtr bedside stating they do not need PP CG in the home and they can manage on our own. SW met with Dtr and she confirms that pt and spouse are stubborn and fiercely independent but pt is 88 yo and spouse is 94 yo. Dtr states that she and pt's brother were able to get pt and spouse agreeable with the 12/03 live in CG for a safe d/c plan as pt remains adamant that he will not go to SNF. Dtr confirms she and her uncle have Financial POA but pt and spouse remain their own POAs for each other and not yet willing to have Dtr or brother in that role. Pt and spouse forgetful but not incompetent to make their own decisions. Plan: Patient to d/c home with spouse and Dtr in 1-2 days (before Dtr flies back to [place]) and new PP 12/03 CG set up and waiting for [facility] to confirm if they can accept pt's [employer] insurance. BF Original Note: DCP Cont: Per MD, pt remains on 4LO2 and may need RT to assess for new home O2 and will help determine if this is needed before discharge. Per ACADEMIC PHYSICIAN, pt made some progress today and still recommending home with family assist 12/03 with HH although could also benefit from SNF rehab but pt and brother confirm plan is home and not SNF. Pt has Medicare A only and therefore his HH benefits would be under his [employer] insurance. [facility] declines as they are not currently taking [employer]. Pt lives in [place] and only other HH agency covering [place] is [facility]. SW made [facility] referral via secure email to Madiha and she will have her team review to confirm if they can accept his [employer] insurance. F2F and HH orders previously completed. Awaiting [facility] review of insurance. [facility] referral had been made and SW left [facility] inquiring about their review to confirm if they can accept in case SNF needed at d/c. Plan: SW to follow closely for further PT and [facility] review to confirm if they can accept pt's insurance for pt and family plan of home with assist and PP CGs and HH. AMELIA Salgado
--- NOTE | 2024-04-26 13:31 | P.PN_ITS ---
Subjective Subjective Interval history: The pt is a 88 yo with a hx of a. fib, COPD on 2-3 lpm NC at home and CHF who presents to the ER as a transfer from his PCP's office for a lesion on his leg and Rt arm that has been smoldering per his words for several months but over the past day started to ooze clear fluid. The pt did fall recently causing his lesion on his rt arm which he denies pain in. He is able to ambulate at home he says. The PCP recently increased the home lasix dose due to chronic swelling in the leg but reduced the dose due to low BP at home, the BP in the ER was 95/57 and the pt was dizzy. His last INR was also 8 several weeks ago S: Still with RVR, he feels a bit better today, leg is still quite tender when pressing on it but at rest no pain. He has not tried ambulating on it but therapy was in the room. Possible abscess developing, R leg ultrasound ordered. Exam Vital Signs (past 8 hours): - 04/26/24 07:00 04/26/24 07:00 04/26/24 08:00 Temperature 98.0 F Pulse Rate 126 H Respiratory Rate 16 Blood Pressure 96/51 L Pulse Oximetry 92 97 Oxygen Delivery Method Nasal Cannula Nasal Cannula Oxygen Flow Rate 2 4 04/26/24 08:29 04/26/24 08:33 04/26/24 09:05 Temperature Pulse Rate 122 H 77 Respiratory Rate Blood Pressure 97/62 102/62 Pulse Oximetry 96 Oxygen Delivery Method Nasal Cannula Oxygen Flow Rate 3.5 04/26/24 12:00 Temperature Pulse Rate Respiratory Rate 18 Blood Pressure Pulse Oximetry Oxygen Delivery Method Oxygen Flow Rate Oxygen Delivery Method Nasal Cannula Oxygen Flow Rate 3.5 Narrative Exam Narrative: NAD, alert and oriented. Fluent speech. Lungs are clear, normal rate and effort. Heart is regular, no murmur gallop or rub. Abdomen is soft, non distended. Extremities are free of edema. Right leg is red [id number]. There is also some swelling. No clear induration. There is a medial wound which is dressed, removed and there is a firm area underneath black skin, still quite tender, unable to express purulence. Objective Labs 04/26/24 08:55 04/26/24 08:55 Labs: Laboratory Results - last 24 hr 04/25/24 04/25/24 04/26/24 13:34 15:40 08:55 WBC 8.7 RBC 3.88 L Hgb 12.1 L Hct 36.4 L MCV 93.7 MCH 31.1 MCHC 33.2 RDW 15.2 H Plt Count 227 Neut % (Auto) 73.1 Lymph % (Auto) 11.7 L [place] % (Auto) 11.9 Eos % (Auto) 2.3 Baso % (Auto) 1.0 Neut # (Auto) 6400 Lymph # (Auto) 1000 L [place] # (Auto) 1000 H Eos # (Auto) 200 Baso # (Auto) 100 PT INR Sodium 135 L Potassium 3.6 Chloride 100 Carbon Dioxide 28 BUN 36 H Creatinine 1.08 Estimated GFR > 60 BUN/Creatinine Ratio 33.3 H Glucose 131 H Lactate 2.8 H 2.9 H 1.9 Calcium 8.3 L Magnesium 2.5 H Total Bilirubin 1.3 AST 36 ALT 17 Alkaline Phosphatase 329 H Total Protein 6.4 Albumin 3.1 L Globulin 3.3 Albumin/Globulin Ratio 0.9 L 04/26/24 11:25 WBC RBC Hgb Hct MCV MCH MCHC RDW Plt Count Neut % (Auto) Lymph % (Auto) [place] % (Auto) Eos % (Auto) Baso % (Auto) Neut # (Auto) Lymph # (Auto) [place] # (Auto) Eos # (Auto) Baso # (Auto) PT 56.3 H INR 4.8 H* Sodium Potassium Chloride Carbon Dioxide BUN Creatinine Estimated GFR BUN/Creatinine Ratio Glucose Lactate Calcium Magnesium Total Bilirubin AST ALT Alkaline Phosphatase Total Protein Albumin Globulin Albumin/Globulin Ratio PFSH Medical History Left foot drop Easy bruisability Fragile skin BCC (basal cell carcinoma of skin) GERD (gastroesophageal reflux disease) Pneumonia Numbness Sleep disorder Scoliosis Closed nondisplaced fracture of pelvis Mixed hyperlipidemia Diabetes Bilateral lower extremity edema Pacemaker CVA (cerebral vascular accident) Afib Surgical History Hx of arthroscopy of shoulder Hx of tonsillectomy Hx of hernia repair Status post bilateral cataract extraction Social History household members: spouse Smoking Status: Never smoker alcohol intake: current Assessment & Plan Assessment & Plan narrative: 1. Right leg cellulitis, present on admission and active. 2. Chronic diastolic CHF with hypotension, present on admission and improved. 3. KATIE, present on admission and improved. 4. Atrial fibrillation with anticoagulation, present on admission and stable. 5. COPD, present on admission and stable. 6. Chronic respiratory failure with hypoxia on oxygen chronically, present on admission and stable. PLAN: -continue antibiotics with vanco per pharmacy, add ceftraixone as well. Will also obtain RLE ultrasound to eval for possible abscess. Possible surgery consult. -nares MRSA screen ordered today, can stop vanco likely if negative. -hold IV fluids today, okay to continue home diuretic, on lower dose than he has been at 40 mg PO BID -monitor renal function, slightly rising cr. Will hold diuretic tomorrow if increasing. -monitor INR, still rising, dosing of coumadin held. -physical therapy and occupational therapy evaluations as well as discharge planning. -monitor breathing and atrial fibrillation rate. -for afib with RVR, beta leighton has been increased, depending on rate throughout the day may need to add 50 mg metoprolol at night in additional to daily 100 mg. DNR. Inpatient status with a 2 midnight expectation for medical necessity. Dispo: pending improvement on R leg cellulitis, possible abscess with further workup as noted above. Discussed with previous provider, I have reviewed patient's presenting imaging, labs and documentation to contribute to the above history, assessment, and plan. Time-Based Coding :: [TOTAL MINUTES] spent with patient and on the chart (including review of chart, obtaining history, exam, reviewing outside data, placing orders, documenting exam and treatment plan, and counseling patient) on [DATE].
[2024-04-26] MEDS: cefTRIAXone 1,000 MG in SODIUM CHLORIDE 0.9% 100 ML 200 MG IV (14:21)
--- NOTE | 2024-04-26 15:54 | PC.NURSE ---
Pt resting at intervals T/O day. Up in chair for a bit. RLE red, tender w/wound. New dsg placed. US of leg completed. SL intact/patent. Med w/[facility] for discomfort w/good relief. Call light w/in reach, bed alarm on for pt safety. COntinnue w/plan of care.
[2024-04-26 16:29] LABS: MRSA (Nasal) PCR NOT DETECTED (Not Detect)
[2024-04-26] MEDS: SENNOSIDES 8.6 MG TABLET 17.2 MG PO (21:21)
[2024-04-27] VITALS (9 sets, daily range): BP systolic 96–124; BP diastolic 56–87; PULSE 68–136; RESP 16–18; TEMP 36.1–37.1; O2SAT 92–99
[2024-04-27 06:23] LABS: Add Manual Diff / Slide Review NO; Basophils Absolute Auto 100 /uL (0-100); Basophils Percent Auto 1.3 % (0-2); Eosinophils Absolute Auto 300 /uL (0-450); Eosinophils Percent Auto 4.3 % (2-4); Hemoglobin 11.4 g/dL (13.5-17.5); Lymphocytes Absolute Auto 1100 /uL (1100-4500); Lymphocytes Percent Auto 14.2 % (25-40); Mean Corpuscular HGB Conc 33.5 % (30-36); Mean Corpuscular Hemoglobin 31.1 PG (26-34); Monocytes Absolute Auto 800 /uL (0-900); Monocytes Percent Auto 11.2 % (3-14); Neutrophils Absolute Auto 5100 /uL (1500-7000); Platelet Count 213 X10^3/uL (150-400); Red Blood Cell Count 3.65 X10^6/uL (4.5-5.9); Red Cell Distribution Width 15.2 % (11.6-14.8); White Blood Cell Count 7.5 X10^3/uL (4.5-11.0)
[2024-04-27 06:36] LABS: INR 4.3 (0.9-1.3); Prothrombin Time 50.3 SECONDS (9.4-12.5)
[2024-04-27 06:39] LABS: PTT Partial Thromboplastin Tim 63 SECONDS (25.1-36.5)
[2024-04-27 06:41] LABS: Alanine Aminotransferase 16 IU/L (<50); Albumin 2.9 g/dL (3.5-5.0); Albumin Globulin Ratio 0.9 (1.0-2.8); Alkaline Phosphatase 314 U/L (38-126); Aspartate Aminotransferase 34 IU/L (17-59); BUN Creatinine Ratio 33.3 (6-22); Blood Urea Nitrogen 31 mg/dL (9-20); Calcium 8.4 mg/dL (8.4-10.2); Carbon Dioxide 28 mmol/L (22-32); Chloride 100 mmol/L (98-107); Estimated Glomerular Filt Rate > 60 mL/min (>60); Globulin 3.1 g/dL (1.7-4.1); Glucose 124 mg/dL (80-110); HEMOLYSIS < 15 (0-50); Magnesium 2.7 mg/dL (1.6-2.3); Potassium 3.8 mmol/L (3.4-5.1); Sodium 134 mmol/L (137-145)
--- NOTE | 2024-04-27 08:28 | DI.ECHO.S_ITS ---
[facility] +---------+ Hospital : : [address] : [place] : : [id number] : : Phone: [phone] Echocardiogram Report + + :Name: VIJI KIM Study Date: 04/27/2024 Height: 67 in : :Hospital ReadingLocation: Weight: 157 lb : : Gender: Male BSA: 1.8 m2 : :: 1935 Age: 88 yrs BP: 104/72 mmHg: :Reason For Study: A FIB WITH RVR : :Ordering Physician: RUSSELL, : :MAY CASTELLANOS Performed By: Rafa Szymanski : :Referring: MAY WELLS : + + Interpretation Summary The patient was in atrial fibrillation with heart rates between 113-160 bpm during the exam. The left ventricular cavity is small. Left ventricular ejection fraction is estimated to be 50 +/- 5%. The interventricular septum is flattened, consistent with a right ventricular pressure/volume condition. There is septal wall hypokinesis. Visually right ventricle appears to be mild to moderately dilated. Right ventricular systolic function is mildly reduced. Right ventricular size has increased since the prior echo exam. Right ventricular systolic function has decreased since previous exam. There is a pacemaker lead in the right ventricle. There is moderate to severe mitral annular calcification. There is moderate mitral regurgitation. Compared to the prior echo study, there has been no change in the severity of mitral regurgitation. The aortic valve is moderately calcified. There is severely reduced leaflet mobility. The peak aortic velocity is 1.71 m/sec. The aortic valve mean gradient is 6.8 mmHg. Stroke-volume index about 13 mL/mA?. ROLAND(I,D): 0.96 cm2 ROLAND(V,D): 1.3 cm2 sev ratio: 0.29 Suspect overall moderate to severe aortic stenosis and low gradient likely due to low stroke-volume due to A-fib with fast ventricular rate. There is severe tricuspid regurgitation. Compared to the prior echo exam, there has been an increase in TR severity. The right ventricular systolic pressure is estimated to be at least 69 mmHg based on an estimated right atrial pressure of 15 mm Hg. There is severe pulmonary hypertension. Compared to the prior echo exam, there has been an increase in the severity of pulmonary hypertension. Procedure: A two-dimensional transthoracic echocardiogram with color flow and Doppler was performed. The study quality was technically adequate. Comparison is made with the echocardiogram of 09/30/2013. The patient was in atrial fibrillation with heart rates between 113-160 bpm during the exam. Left Ventricle: The left ventricular cavity is small. Proximal septal thickening is noted. There is no thrombus. Left ventricular ejection fraction is estimated to be 50 +/- 5%. The interventricular septum is flattened, consistent with a right ventricular pressure/volume condition. There is septal wall hypokinesis. There is basal inferior wall hypokinesis. There is basal inferoseptal wall hypokinesis. Diastolic function could not be accurately assessed due to atrial fibrillation. Right Ventricle: There is a pacemaker lead in the right ventricle. Visually right ventricle appears to be mild to moderately dilated. Right ventricular size has increased since the prior echo exam. Right ventricular systolic function is mildly reduced. Right ventricular systolic function has decreased since previous exam. Atria: The left atrium is severely dilated. There has been no significant change since the previous study. The right atrium is severely dilated. There is a catheter/pacemaker lead seen in the right atrium. Mitral Valve: There is moderate to severe mitral annular calcification. The mitral valve chordae are thickened and/or calcified. No significant mitral valve stenosis. There is moderate mitral regurgitation. Compared to the prior echo study, there has been no change in the severity of mitral regurgitation. Aortic Valve: The aortic valve is trileaflet. The aortic valve is moderately calcified. There is severely reduced leaflet mobility. The peak aortic velocity is 1.71 m/sec. The aortic valve mean gradient is 6.8 mmHg. There is mild aortic regurgitation. Tricuspid Valve: The tricuspid annulus is dilated. There is no tricuspid stenosis. There is severe tricuspid regurgitation. The right ventricular systolic pressure is estimated to be at least 69 mmHg based on an estimated right atrial pressure of 15 mm Hg. Compared to the prior echo exam, there has been an increase in TR severity. There is severe pulmonary hypertension. Compared to the prior echo exam, there has been an increase in the severity of pulmonary hypertension. Pulmonic Valve: The pulmonic valve is not well visualized. There is no pulmonic valvular stenosis. There is mild pulmonic regurgitation. Great Vessels: The aortic root is normal size. The dimensions of the ascending aorta are normal. The IVC is dilated (diameter is greater than 2.1 cm) and it collapses less than 50% with a sniff. This suggests a high right atrial pressure of 15 mm Hg. Pericardium/ Pleura There is no pericardial effusion. There is no pleural effusion. MMode/2D Measurements & Calculations LVIDd: 3.0 cm LVOT diam: 2.0 cm LVIDs: 2.3 cm Ao root diam: 3.6 cm FS: 22.6 % asc Aorta Diam: 3.5 cm IVSd: 1.4 cm LVPWd: 1.1 cm LV scruggs. diameter/BSA (cm/m^2): 1.7 LV sys. diameter/BSA (cm/m^2): 1.3 LA A2 area: 33.3 cm2 RA long axis: 7.2 cm LA A4 area: 32.0 cm2 RA area: 31.5 cm2 LA length (vol): 6.8 cm RA vol: 118.1 ml LA vol: 133.7 ml RA : 64.7 ml/m2 LA vol index: 73.3 ml/m2 IVC diam: 2.7 cm RVD1 (basal): 3.8 cm RVD2 (mid): 3.4 cm TAPSE: 1.4 cm Doppler Measurements & Calculations Ao V2 max: 171.4 cm/sec LVOT Max Wan: 65.7 cm/sec Ao V2 mean: 124.0 cm/sec LV V1 max P.7 mmHg Ao max P.8 mmHg LV V1 VTI: 7.7 cm Ao mean P.8 mmHg ROLAND(I,D): 0.96 cm2 Ao V2 VTI: 26.3 cm ROLAND(V,D): 1.3 cm2 sev ratio: 0.29 ROLAND indexed to BSA (cm^2/m^2): 0.53 AI P1/2t: 240.7 msec AI dec slope: 496.8 cm/sec2 MV E max wan: 101.9 cm/sec TR max wan: 367.1 cm/sec MV A max wan: 10.9 cm/sec TR max P.0 mmHg MV E/A: 9.4 PA V2 max: 73.7 cm/sec Med Peak E' Wan: 7.1 cm/sec PA V2 mean: 47.7 cm/sec E/E' med: 14.4 PA mean P.0 mmHg Lat Peak E' Wan: 8.5 cm/sec PA pr(Accel): 57.3 mmHg E/E' lat: 12.0 E/e' average: 13.2 MV dec time: 0.11 sec SV(LVOT): 25.3 ml Reading Physician:01:12 PM
[2024-04-27] MEDS: FUROSEMIDE 40 MG TABLET PO ×2 (09:03→16:59)
[2024-04-27] MEDS: METOPROLOL ER 50 MG TABLET 100 MG PO (09:06)
[2024-04-27] MEDS: GABAPENTIN 100 MG CAPSULE PO ×2 (09:06→20:24)
[2024-04-27] MEDS: HYDROCODONE/ACET 5/325 TABLET 1 TAB PO (09:11)
--- NOTE | 2024-04-27 10:08 | PT-IP ANOTE ---
Discussed pt in rounds and pt to go for I&D this date or next date likely after elevated INR and a-fib address. Recommendations to hold PT.
--- NOTE | 2024-04-27 11:01 | PC.NURSE ---
pt wake c/o right leg pain med with vicoden and reposition of comfort, family here, leg pain increasing med with dilaudid ivp, hr afib rvr 120-140 aware.
[2024-04-27] MEDS: HYDROMORPHONE 0.5 MG INJ IV (11:15)
--- NOTE | 2024-04-27 13:04 | P.PN_ITS ---
Subjective Subjective Interval history: The pt is a 88 yo with a hx of a. fib, COPD on 2-3 lpm NC at home and CHF admitted with a R leg abscess seen on US yesterday. Continuing to struggle with intermittent afib with RVR, elevated INR, unable to perform I&D today after discussion wtih surgery. S: Still with RVR, though not sustained, rate generally around 100. Leg is still quite tender when pressing on it but at rest no pain. US showed abscess yesterday, possible OR tomorrow if afib controlled and INR improved. Ordered 10 mg vitamin K. Exam Vital Signs (past 8 hours): - 04/27/24 08:00 04/27/24 09:06 04/27/24 11:16 Temperature 97.8 F Pulse Rate 68 68 136 H Respiratory Rate 16 Blood Pressure 104/71 104/71 Pulse Oximetry 99 Oxygen Flow Rate 2 04/27/24 12:00 Temperature 97.3 F L Pulse Rate 126 H Respiratory Rate 16 Blood Pressure 98/56 L Pulse Oximetry 99 Oxygen Flow Rate 2 Oxygen Delivery Method Nasal Cannula Oxygen Flow Rate 2 Narrative Exam Narrative: NAD, alert and oriented. Fluent speech. Lungs are clear, normal rate and effort. Heart is regular, no murmur gallop or rub. Abdomen is soft, non distended. Extremities are free of edema. Right leg is red [id number]. There is also some swelling. No clear induration. There is a medial wound which is dressed, removed and there is a firm area underneath black skin, still quite tender, unable to express purulence. Objective Labs 04/27/24 06:06 04/27/24 06:06 Labs: Laboratory Results - last 24 hr 04/26/24 04/27/24 15:00 06:06 WBC 7.5 RBC 3.65 L Hgb 11.4 L Hct 34.0 L MCV 93.0 MCH 31.1 MCHC 33.5 RDW 15.2 H Plt Count 213 Neut % (Auto) 69.0 Lymph % (Auto) 14.2 L [place] % (Auto) 11.2 Eos % (Auto) 4.3 H Baso % (Auto) 1.3 Neut # (Auto) 5100 Lymph # (Auto) 1100 [place] # (Auto) 800 Eos # (Auto) 300 Baso # (Auto) 100 PT 50.3 H D INR 4.3 H APTT 63 H Sodium 134 L Potassium 3.8 Chloride 100 Carbon Dioxide 28 BUN 31 H Creatinine 0.93 Estimated GFR > 60 BUN/Creatinine Ratio 33.3 H Glucose 124 H Calcium 8.4 Magnesium 2.7 H Total Bilirubin 1.0 AST 34 ALT 16 Alkaline Phosphatase 314 H Total Protein 6.0 L Albumin 2.9 L Globulin 3.1 Albumin/Globulin Ratio 0.9 L Nasal Screen MRSA (PCR) Not detected [facility] Medical History Left foot drop Easy bruisability Fragile skin BCC (basal cell carcinoma of skin) GERD (gastroesophageal reflux disease) Pneumonia Numbness Sleep disorder Scoliosis Closed nondisplaced fracture of pelvis Mixed hyperlipidemia Diabetes Bilateral lower extremity edema Pacemaker CVA (cerebral vascular accident) Afib Surgical History Hx of arthroscopy of shoulder Hx of tonsillectomy Hx of hernia repair Status post bilateral cataract extraction Social History household members: spouse Smoking Status: Never smoker alcohol intake: current Assessment & Plan Assessment & Plan narrative: 1. Right leg cellulitis, present on admission and active. 2. Chronic diastolic CHF with hypotension, present on admission and improved. 3. KATIE, present on admission and improved. 4. Atrial fibrillation with anticoagulation, present on admission and stable. 5. COPD, present on admission and stable. 6. Chronic respiratory failure with hypoxia on oxygen chronically, present on admission and stable. PLAN: -continue antibiotics with ceftraixone only given cultures with MSSA. Discussed with surgeon, would like to perform I&D, but will attempt better rate control and improved INR. -vancomycin discontinued. -okay today on home diuretic, on lower dose than he has been at 40 mg PO BID -monitor renal function, cr stable today. -monitor INR, still rising, dosing of coumadin held still and ordered vitamin k 10 mg PO today in hopes of improving for possible OR tomorrow for I&D. -physical therapy and occupational therapy evaluations as well as discharge planning. -monitor breathing and atrial fibrillation rate. -for afib with RVR, beta leighton has been increased, will add 50 mg of additional metoprolol succinate tonight in hopes of better overall rate control. TTE ordered today as well to assess EF for additional medication options. May need to start amiodarone if rate not improved. DNR. Inpatient status with a 2 midnight expectation for medical necessity. Dispo: will need I&D of R leg, PT/OT after OR, likely 2-3 more days in the hospital Discussed with surgeon today, along with case management, bedside RN. I have reviewed patient's presenting imaging, labs and documentation to contribute to the above history, assessment, and plan. Time-Based Coding :: [TOTAL MINUTES] spent with patient and on the chart (including review of chart, obtaining history, exam, reviewing outside data, placing orders, documenting exam and treatment plan, and counseling patient) on [DATE].
[2024-04-27] MEDS: cefTRIAXone 1,000 MG in SODIUM CHLORIDE 0.9% 100 ML 200 MG IV (14:22)
[2024-04-27] MEDS: PHYTONADIONE (VIT K1) 5 MG TABLET 10 MG PO (14:24)
--- NOTE | 2024-04-27 14:47 | CM.DPNOTE ---
DCP Note KILN LOADER reviewed EMR Per hospitalist in morning rounds, plan is for OR sunday for I&D of wound if INR and afib better controlled. Per chart review, pt preference is home with [facility] but open to [facility] if needed. Acceptance from both still pending. Dtr got in home caregivers arranged. P: Anticipate OR for I&D Sunday, f/u with pt and family preference for [facility] vs home with CGs and [facility]. If SNF, PASRR needed. CM team will continue to follow closely AMELIA Gomez
[2024-04-27] MEDS: SENNOSIDES 8.6 MG TABLET 17.2 MG PO (20:24)
[2024-04-27] MEDS: METOPROLOL ER 50 MG TABLET PO (20:25)
[2024-04-28] VITALS (10 sets, daily range): BP systolic 93–120; BP diastolic 59–71; PULSE 61–106; RESP 12–20; TEMP 36.2–36.8; O2SAT 90–98
[2024-04-28 06:29] LABS: Add Manual Diff / Slide Review NO; Basophils Absolute Auto 100 /uL (0-100); Basophils Percent Auto 1.8 % (0-2); Eosinophils Absolute Auto 300 /uL (0-450); Eosinophils Percent Auto 3.8 % (2-4); Hematocrit 34.9 % (41-53); Hemoglobin 11.5 g/dL (13.5-17.5); Lymphocytes Absolute Auto 900 /uL (1100-4500); Lymphocytes Percent Auto 12.9 % (25-40); Mean Corpuscular HGB Conc 33.1 % (30-36); Mean Corpuscular Hemoglobin 30.8 PG (26-34); Mean Corpuscular Volume 93.3 fL (80-100); Monocytes Absolute Auto 1000 /uL (0-900); Monocytes Percent Auto 14.2 % (3-14); Neutrophils Absolute Auto 4700 /uL (1500-7000); Neutrophils Percent Auto 67.3 % (50-75); Platelet Count 202 X10^3/uL (150-400); Red Blood Cell Count 3.74 X10^6/uL (4.5-5.9)
[2024-04-28 06:30] LABS: Prothrombin Time 23.3 SECONDS (9.4-12.5)
[2024-04-28 06:33] LABS: PTT Partial Thromboplastin Tim 50 SECONDS (25.1-36.5)
[2024-04-28 06:39] LABS: Alanine Aminotransferase 15 IU/L (<50); Albumin 2.8 g/dL (3.5-5.0); Albumin Globulin Ratio 0.8 (1.0-2.8); Alkaline Phosphatase 270 U/L (38-126); Aspartate Aminotransferase 28 IU/L (17-59); BUN Creatinine Ratio 29.7 (6-22); Bilirubin Total 1.4 mg/dL (0.2-1.3); Blood Urea Nitrogen 30 mg/dL (9-20); Calcium 8.7 mg/dL (8.4-10.2); Carbon Dioxide 30 mmol/L (22-32); Chloride 99 mmol/L (98-107); Estimated Glomerular Filt Rate > 60 mL/min (>60); Globulin 3.4 g/dL (1.7-4.1); Glucose 120 mg/dL (80-110); HEMOLYSIS < 15 (0-50); Magnesium 2.4 mg/dL (1.6-2.3); Potassium 3.5 mmol/L (3.4-5.1); Sodium 134 mmol/L (137-145); Total Protein 6.2 g/dL (6.3-8.2)
--- NOTE | 2024-04-28 07:33 | PM.PN.1 ---
Subjective Subjective Interval history: Patient is sitting comfortably in chair accompanied by he is also wondering how long he is going to be in the hospital on whether he is going to be able to go home or not. All questions addressed. Exam Vital Signs (past 8 hours): - 04/27/24 23:45 04/28/24 00:00 04/28/24 04:00 Temperature 97.4 F L 97.3 F L Pulse Rate 67 105 H Respiratory Rate 16 12 Blood Pressure 98/63 98/63 94/66 Pulse Oximetry 91 90 L Oxygen Flow Rate 2 2 Oxygen Delivery Method Nasal Cannula Oxygen Flow Rate 2 Narrative Exam Narrative: General: Elderly not in distress Lungs:? Normal effort Cardio: irregular, rapid MSK/Skin/Extremities: r lower leg bandaged, pitting edema in B/L feed Neuro: no focal deficits Psych:?pleasant Objective Labs 04/28/24 06:05 04/28/24 06:05 Labs: Laboratory Results - last 24 hr 04/28/24 06:05 WBC 7.0 RBC 3.74 L Hgb 11.5 L Hct 34.9 L MCV 93.3 MCH 30.8 MCHC 33.1 RDW 15.0 H Plt Count 202 Neut % (Auto) 67.3 Lymph % (Auto) 12.9 L [place] % (Auto) 14.2 H Eos % (Auto) 3.8 Baso % (Auto) 1.8 Neut # (Auto) 4700 Lymph # (Auto) 900 L [place] # (Auto) 1000 H Eos # (Auto) 300 Baso # (Auto) 100 PT 23.3 H D INR 2.0 H APTT 50 H D Sodium 134 L Potassium 3.5 Chloride 99 Carbon Dioxide 30 BUN 30 H Creatinine 1.01 Estimated GFR > 60 BUN/Creatinine Ratio 29.7 H Glucose 120 H Calcium 8.7 Magnesium 2.4 H Total Bilirubin 1.4 H AST 28 ALT 15 Alkaline Phosphatase 270 H Total Protein 6.2 L Albumin 2.8 L Globulin 3.4 Albumin/Globulin Ratio 0.8 L PFSH Medical History Left foot drop Easy bruisability Fragile skin BCC (basal cell carcinoma of skin) GERD (gastroesophageal reflux disease) Pneumonia Numbness Sleep disorder Scoliosis Closed nondisplaced fracture of pelvis Mixed hyperlipidemia Diabetes Bilateral lower extremity edema Pacemaker CVA (cerebral vascular accident) Afib Surgical History Hx of arthroscopy of shoulder Hx of tonsillectomy Hx of hernia repair Status post bilateral cataract extraction Social History household members: spouse Smoking Status: Never smoker alcohol intake: current Assessment & Plan Assessment & Plan narrative: 1. Right leg cellulitis, present on admission and active. 2. Chronic diastolic CHF with hypotension, present on admission and improved. 3. KATIE, present on admission and improved. 4. Atrial fibrillation with anticoagulation, present on admission and stable. 5. COPD, present on admission and stable. 6. Chronic respiratory failure with hypoxia on oxygen chronically, present on admission and stable. PLAN: -Ceftriaxone 1g/day (Day 3) -INR improved I&D planned for tomorrow -Metoprolol Succinate 100mg BID (home 100mg/day) -Pharmacy dosing warfarin DNR. Inpatient status with a 2 midnight expectation for medical necessity. Dispo: will need I&D of R leg, PT/OT after OR, likely 2-3 more days in the hospital. Time-Based Coding :: [TOTAL MINUTES] spent with patient and on the chart (including review of chart, obtaining history, exam, reviewing outside data, placing orders, documenting exam and treatment plan, and counseling patient) on [DATE].
--- NOTE | 2024-04-28 09:01 | OT.IP.TRT ---
Current Diagnoses Cellulitis of right lower limb (04/24/24) Surgery Performed Operation Date: 04/29/24 15:45 <No data on this case meets the specified criteria> Occupational Therapy Treatment Note M2 OT-IP Current Condition Start: 04/25/24 14:04 Freq: Status: Active Protocol: Document 04/25/24 14:05 [facility] (Rec: 04/25/24 14:23 [facility] [id number]) Occupational Therapy Current Condition Current Condition Evaluation Date 04/25/24 Treatment Diagnosis R LE cellulitis, CHF Diagnosis Onset Date 04/24/24 M3 OT- IP Subjective and Pain Start: 04/25/24 14:04 Freq: Status: Active Protocol: Document 04/28/24 10:25 [facility] (Rec: 04/28/24 10:37 [facility] [id number]) OT- Subjective Occupational Therapy Visit Type Type Treatment Note Visit Start Time 09:42 Visit Stop Time 09:01 Notes Possible sx today, awaiting further instruction. OT Pain Assessment Pain When Pain Assessed At Rest Pain Present Pain Present Denied Pain M4 OT- IP ADL's Start: 04/25/24 14:04 Freq: Status: Active Protocol: Document 04/25/24 14:05 [facility] (Rec: 04/25/24 14:23 [facility] [id number]) OT DWR-[id number]-Fwoeies Comments OT Self-Feeding Comments Not at meal time. OT ADL-Grooming Comments OT Grooming Comments Pt able to wash his hands after set-up of wash cloth. OT ADL-Oral Care Comments Oral Care Comments Not performed, as pt states did earlier. OT ADL-Dressing General Eval Lower Body Dressing Ability Maximum Assistance Comments OT Dressing Comments Pt will need assist for all LB dressing nees due to skin issues and pain. OT ADL-Toileting General Evaluation Toileting Ability Standby Assistance,Moderate Assistance Areas Needing Assistance Perform Perineal Hygiene Comments OT Toileting Comments Pt able to use the urinal with set-up on the edge of the bed . If having to use the toilet would need asisst for clothing management needs. OT ADL-Bathing Comments OT Bathing Comments Pt will need assist. M5 OT- IP IADL's Start: 04/25/24 14:04 Freq: Status: Active Protocol: Document 04/25/24 14:05 [facility] (Rec: 04/25/24 14:23 [facility] [id number]) OT-Instrumental Activities of Daily Living Deficits IADL Deficits Identified Deficits Home Safety Awareness Awareness of Need for Assistance at Home Decreased Awareness Medication Management Medication Management Comments Pt's family will be taking over medication needs. Money Management Money Management Caregiver Provides Assistance Applied Psychology Teacher Applied Psychology Teacher Caregiver Provides Assist Driving Driving Comments Pt states can drive once feeling better, however family insists pt will not drive anymore. M6 OT- IP Functional Cognition Start: 04/25/24 14:04 Freq: Status: Active Protocol: Document 04/28/24 10:25 [facility] (Rec: 04/28/24 10:37 [facility] [id number]) Cognitive Factors Limiting Selfcare Function Cognitive Ability Level of Alertness Alert Patient Orientation Name,Year,Place,Situation Attention Span Ability Capable of Focused Attention, Capable of Sustained Attention Ability to Follow Commands Able to Follow One Step Commands with Increased Time, Able to Follow One Step Commands with Repetition Cognitive Tests SLUMS Pt participated in SLUMS with a score of of 11/30. Form was put into his paper chart for scanning into his EMR. Pt was oriented but unable to do simple subtration, named 8 animals in one minute, remembered 0/5 objects, was unable to state numbers backwards, was able to number clock face but did not bib time correctly. He eared points for the figures and missed 3 of the 4 questions from the listening comprehension. OT- Vision and Hearing OT- Hearing Assessment OT- Hearing Assessment Hearing Impaired M7 OT- IP Mobility and Balance Start: 04/25/24 14:04 Freq: Status: Active Protocol: Document 04/28/24 10:25 [facility] (Rec: 04/28/24 10:37 [facility] [id number]) OT- Bed Mobility Assessment Supine to Sit Supine to Sit Assist Standby Assistance Scooting Scooting to Edge of Bed Standby Assistance OT-Transfer Assessment Sit to and From Stand Sit to and from Stand Standby Assistance Transfers Transfer Ability Standby Assistance Technique Transfer Destination Bed,Car Transfer Technique Stand Step Pivot Devices Transfer Assistive Devices Gait Belt,Front Wheeled Walker OT- Balance Assessment Sitting Balance and Reactions Static Sitting Balance Ability Normal Dynamic Sitting Balance Ability Normal M8 OT- IP Objective Assessments Start: 04/25/24 14:04 Freq: Status: Active Protocol: Document 04/25/24 14:05 [facility] (Rec: 04/25/24 14:23 [facility] [id number]) OT Gross Range of Motion Upper Extremity Range of Motion Assessment Bilaterally Impaired ROM Impairments RUE 0-20 adnd LUE 0-95 shoulder flexion. OT Strength Upper Extremity Strength Assessment Bilaterally Impaired M9 OT- IP Assessment and Plan Start: 04/25/24 14:04 Freq: Status: Active Protocol: Document 04/25/24 14:05 [facility] (Rec: 04/25/24 14:23 [facility] [id number]) OT Summary Assessment and Plan Potential Rehabilitation Potential Good Analytic Complexity at Evaluation Moderate Summary OT Impairments Pain,Range of Motion,Strength, Balance,Functional Cognition, Functional Mobility,Grooming, Dressing,Toileting,Bathing, Toilet Transfers,Shower Transfers,Activity Tolerance Progress Towards Goals Slow Progress due to Pain,Slow Progress due to Medical Issues Assessment Summary Pt MOD complexity and main barriers are pain, decreased activity tolerance, and now continuing to needs assist for dressing,toileting , and bathing needs since falling several months ago. Pt will greatly benefit from 24/7 assist and home health versus SNF pending progress. Goals Grooming Goal Independent Dressing Goal Minimal Assistance Toileting Goal Minimal Assistance Bathing Goal Minimal Assistance Toilet Transfer Goal Standby Assistance Shower Transfer Goal Contact Guard Assistance Days to Meet Goals 15 Frequency of Treatment Other frequency 5x/week Treatment Plan OT Treatment Plan ADL Training,Functional Mobility,Patient/Family Education,Discharge Planning Other Treatment Recommendations and Next SLUMS Treatment Focus Discharge Recommendations OT Discharge Recommendations Home with 24/7 Assist Available,Home Health,SNF Rehab,Home vs SNF Home Equipment Needs BSC, adjustable bed/hospital bed Transportation Needs at Discharge Private Vehicle,Wheelchair/ Cabulance
[2024-04-28] MEDS: FUROSEMIDE 40 MG TABLET PO ×2 (09:16→16:31)
[2024-04-28] MEDS: GABAPENTIN 100 MG CAPSULE PO ×3 (09:16→20:41)
[2024-04-28] MEDS: METOPROLOL ER 50 MG TABLET 100 MG PO (09:16)
[2024-04-28] MEDS: HYDROCODONE/ACET 5/325 TABLET 1 TAB PO (09:20)
[2024-04-28] MEDS: POTASSIUM CHLORIDE 20 MEQ TAB 40 MEQ PO (10:03)
--- NOTE | 2024-04-28 12:56 | PM.CN ---
History of Present Illness Consult details Date Patient Seen: 04/28/24 Time Patient Seen: 12:56 Chief complaint: sent by PCP, infected abcess inside lt calf Narrative: Ajay is an 88-year-old man who presented with a left leg abscess of unclear etiology. His INR was supratherapeutic and has been steadily coming down and was 2.0 this morning. Meds Home Medications and Allergies Home Medications Medication Instructions Recorded Confirmed Type fluorouracil 5 % topical cream 1 barbra topical PRN PRN skin cancer 04/30/17 05/01/18 History (Efudex) lesions ##0 glucosamine sulfate dipotassium Cl 1 cap PO DAILY ##0 04/30/17 05/01/18 History 500 mg-chondroitin 400 mg capsule (Glucosamine Sulfate 2 KCL-Chondroitin) multivitamin (Multiple Vitamins 1 tab PO QDAY ##0 04/30/17 05/01/18 History tablet) melatonin 5 mg tablet 5 mg PO QHS PRN Sleep 05/01/18 05/13/18 History metoprolol succinate 50 mg 50 mg PO BEDTIME 05/01/18 02/22/21 History tablet,extended release 24 hr omeprazole 20 mg tablet,delayed 20 mg PO BID 05/01/18 02/22/21 History release warfarin 3 mg tablet (Coumadin) 5 mg PO SEEINSTR 05/01/18 02/22/21 History furosemide 20 mg tablet (Lasix) 10 mg (1/2 x 20 mg) PO QAM #10 tabs 10/02/19 02/22/21 Rx nitroglycerin 0.3 mg sublingual 0.3 mg sublingual Q5-15M PRN chest 10/02/19 Rx tablet pain #25 tabs potassium chloride 8 mEq 8 meq PO DAILY #10 caps 10/02/19 Rx capsule,extended release gabapentin 100 mg capsule 100 mg PO BID PRN pain 04/27/24 04/27/24 History metolazone 2.5 mg tablet 2.5 mg PO DAILY 04/28/24 History metoprolol succinate 100 mg 100 mg PO DAILY 04/28/24 History tablet,extended release 24 hr potassium chloride 10 mEq meq PO 04/28/24 History tablet,extended release Allergies Allergy/AdvReac Type Severity Reaction Status Date / Time sulfite [SULFITE] Allergy Severe from foods Verified 09/24/22 19:56 Penicillins [PENICILLINS] Allergy Mild Rash Verified 09/24/22 19:56 Exam Vital Signs (past 8 hours): - 04/28/24 07:00 04/28/24 07:23 04/28/24 08:00 Temperature 98.2 F Pulse Rate 86 92 H Respiratory Rate 18 Blood Pressure 101/67 Pulse Oximetry 96 98 96 Oxygen Delivery Method Nasal Cannula Nasal Cannula Oxygen Flow Rate 2 2 2 Fraction of Inspired Oxygen 28 04/28/24 09:16 04/28/24 12:00 Temperature 97.8 F Pulse Rate 92 H 65 Respiratory Rate 20 Blood Pressure 101/67 102/59 L Pulse Oximetry 96 Oxygen Delivery Method Oxygen Flow Rate 2 Fraction of Inspired Oxygen Fraction of Inspired Oxygen 28 SaO2/FiO2 Ratio 350 Oxygen Delivery Method Nasal Cannula Oxygen Flow Rate 2 Narrative Exam Narrative: There is a 3-4 cm circular area necrotic appearing tissue involving the medial aspect of the right lower leg Objective Labs 04/28/24 06:05 04/28/24 06:05 Labs: Laboratory Results - last 24 hr 04/28/24 06:05 WBC 7.0 RBC 3.74 L Hgb 11.5 L Hct 34.9 L MCV 93.3 MCH 30.8 MCHC 33.1 RDW 15.0 H Plt Count 202 Neut % (Auto) 67.3 Lymph % (Auto) 12.9 L [place] % (Auto) 14.2 H Eos % (Auto) 3.8 Baso % (Auto) 1.8 Neut # (Auto) 4700 Lymph # (Auto) 900 L [place] # (Auto) 1000 H Eos # (Auto) 300 Baso # (Auto) 100 PT 23.3 H D INR 2.0 H APTT 50 H D Sodium 134 L Potassium 3.5 Chloride 99 Carbon Dioxide 30 BUN 30 H Creatinine 1.01 Estimated GFR > 60 BUN/Creatinine Ratio 29.7 H Glucose 120 H Calcium 8.7 Magnesium 2.4 H Total Bilirubin 1.4 H AST 28 ALT 15 Alkaline Phosphatase 270 H Total Protein 6.2 L Albumin 2.8 L Globulin 3.4 Albumin/Globulin Ratio 0.8 L PFSH Medical History Left foot drop Easy bruisability Fragile skin BCC (basal cell carcinoma of skin) GERD (gastroesophageal reflux disease) Pneumonia Numbness Sleep disorder Scoliosis Closed nondisplaced fracture of pelvis Mixed hyperlipidemia Diabetes Bilateral lower extremity edema Pacemaker CVA (cerebral vascular accident) Afib Surgical History Hx of arthroscopy of shoulder Hx of tonsillectomy Hx of hernia repair Status post bilateral cataract extraction Social History household members: spouse Tobacco & Substance Use Smoking Status: Never smoker alcohol intake: current Assessment & Plan Assessment and plan (1) Cellulitis: Status: Acute Plan Plan for debridement in the operating room tomorrow as long as his INR is below or equal to 1.6. Make NPO at midnight. Time-Based Coding :: [TOTAL MINUTES] spent with patient and on the chart (including review of chart, obtaining history, exam, reviewing outside data, placing orders, documenting exam and treatment plan, and counseling patient) on [DATE].
[2024-04-28] MEDS: cefTRIAXone 1,000 MG in SODIUM CHLORIDE 0.9% 100 ML 200 MG IV (13:37)
--- NOTE | 2024-04-28 13:56 | PT-IP ANOTE ---
clears pt for mobility today. Pt to have wound debridement right calf tomorrow. Checked in on pt who is sleeping. He awakens to PT's voice and prefers resting today. Con't PT efforts, possibly after procedure. Please update activity level and WB status as appropriate post-op. Thank you.
--- NOTE | 2024-04-28 14:01 | CM.DPNOTE ---
DCP Note PURCHASE ANALYST reviewed EMR. Per hospitalist in morning rounds/surgeon PN, plan is for I&D of abscess Sunday. Per Madiah from [facility], unable to accept pt's [employer] insurance. PURCHASE ANALYST lvm with Pamela from [facility] to see if they could accept pt. Per OT, XU of 07/19 today. PURCHASE ANALYST met with pt and spouse Lilo in room. Report their preference is to dc home with caregivers that dtr newly hired at this time. Explained HH was not available on [facility] that took pt's [employer]. Spouse reports open to SNF if needed, pt adamantly refuses. Gave permission for CM team to discuss medical/dcp information with LISETH Ureña. PURCHASE ANALYST had multiple lengthy phone conversations with LISETH Ureña ([phone]). Confirms she has 12/03 caregivers set up to start at [place] for pt. Disappointed in no HH, is going to see if pt can stay with brother Chip in [facility] for for a bit. Answered HH/SNF/insurance/medical questions to best of ability. PURCHASE ANALYST lvm with marjorie at [facility] and asked if she could kindly review if they could accept if pt was in [facility]. P: I&D of abscess tomorrow in OR. Pending wound care/therapy needs/family preference, plan to 1) dc home with spouse/12/03 PP caregivers and OP PT/OT/wound care follow up 2) dc to brother's house in [facility] with [facility] to follow pending acceptance for PT/OT/RN or 3) dc to [facility] pending acceptance. if SNF, PASRR needed. CM team will continue to follow closely AMELIA Gomez
[2024-04-28 17:38] LABS: INR 1.6 (0.9-1.3); Prothrombin Time 18.9 SECONDS (9.4-12.5)
[2024-04-28] MEDS: SENNOSIDES 8.6 MG TABLET 17.2 MG PO (20:40)
[2024-04-28] MEDS: METOPROLOL ER 50 MG TABLET PO (20:41)
[2024-04-29] VITALS (16 sets, daily range): BP systolic 82–110; BP diastolic 61–76; PULSE 68–128; RESP 12–21; TEMP 36.1–37; O2SAT 95–100; BMI 24.5
--- NOTE | 2024-04-29 | PATH_ITS ---
[facility] Accession Number: [id number] No. of containers..01 Tissue . 01 Material submitted: . leg - RIGHT LEG WOUND . 01 Diagnosis: RIGHT LEG, BIOPSY: Ulcer bed with necrosis, necrotic debris, acute inflammation, reactive changes in the dermis, and adjacent squamous atypia. (See note.) . Note: Overall, I favor the squamous atypia present to represent reactive changes in adnexal structures. However, if this biopsy is part of a larger lesion, it may not be farm loan representative of the lesion as a whole. Calcification in the taylor of medium-sized vessels is also noted in the dermis. Clinicopathological correlation is advised. [facility] 05/05/2024 1740 Local . 01 Comment: PAS stain is negative for fungal hyphae. HMWCK immunohistochemical stain performed supports the above diagnosis. . The histologic material was reviewed with Dr. James Carpenter, who concurs. . 01 Electronically signed: . Debo Darby MD, Dermatopathologist NPI- [id number] . 01 Gross description: . Received in formalin with two patient identifiers and right leg wound, is an unoriented fragment of coello-waterman skin (3.5 x 3.4 x 0.9 cm) with a full thickness central defect revealing coello-brown soft tissue (1.9 x 1.1 cm). The margins are inked blue, and sectioning reveals a pink-brown, soft cut surface. A second soft tissue fragment is in the container, 1.6 x 1.1 x 0.5 cm, with no skin identified. Green Pipefitter sections are submitted in A1-A2. ([id number]) . The remaining specimen is submitted as follows: A3: Inked fragment ends. A4-A5: Remaining sequential inked fragment. . (Note: The second non-inked fragment was submitted intact in A2.) ([id number]) /MRV 05/02/2024 1538 Local . 01 Pathologist provided ICD-10: R23.9 . 01 CPT . 386004, 798826, C90131 Specimen Comment: A courtesy copy of this report has been sent to [phone] Performed at: [address] [address], [place], [place] [id number] MD Gilberto Wright MD Phone: [phone]
[2024-04-29 06:12] LABS: Add Manual Diff / Slide Review NO; Basophils Absolute Auto 100 /uL (0-100); Basophils Percent Auto 1.9 % (0-2); Eosinophils Absolute Auto 300 /uL (0-450); Eosinophils Percent Auto 3.8 % (2-4); Hematocrit 35.2 % (41-53); Hemoglobin 11.6 g/dL (13.5-17.5); Lymphocytes Absolute Auto 1000 /uL (1100-4500); Lymphocytes Percent Auto 14.8 % (25-40); Mean Corpuscular Hemoglobin 30.9 PG (26-34); Mean Corpuscular Volume 93.7 fL (80-100); Monocytes Absolute Auto 1000 /uL (0-900); Monocytes Percent Auto 13.7 % (3-14); Neutrophils Absolute Auto 4600 /uL (1500-7000); Neutrophils Percent Auto 65.8 % (50-75); Platelet Count 200 X10^3/uL (150-400); Red Blood Cell Count 3.75 X10^6/uL (4.5-5.9)
[2024-04-29 06:48] LABS: Alanine Aminotransferase 15 IU/L (<50); Alkaline Phosphatase 276 U/L (38-126); Aspartate Aminotransferase 32 IU/L (17-59); BUN Creatinine Ratio 27.9 (6-22); Bilirubin Total 1.3 mg/dL (0.2-1.3); Blood Urea Nitrogen 29 mg/dL (9-20); Calcium 8.7 mg/dL (8.4-10.2); Carbon Dioxide 29 mmol/L (22-32); Chloride 101 mmol/L (98-107); Estimated Glomerular Filt Rate > 60 mL/min (>60); Glucose 121 mg/dL (80-110); HEMOLYSIS < 15 (0-50); Magnesium 2.4 mg/dL (1.6-2.3); Potassium 3.8 mmol/L (3.4-5.1); Sodium 135 mmol/L (137-145)
[2024-04-29] MEDS: GABAPENTIN 100 MG CAPSULE PO ×3 (08:46→20:42)
[2024-04-29] MEDS: CEFAZOLIN 2 GM/100 ML PREMIX 100 ML IV ×2 (08:46→23:57)
[2024-04-29] MEDS: METOPROLOL ER 50 MG TABLET 100 MG PO (08:46)
--- NOTE | 2024-04-29 09:30 | DIET.CONS ---
Dietary Consultation Note Admission Date: 04/24/2024 21:06 Assessment: 88 y M admitted for cellulitis. PMH CHF. Nutrition screened for LOS. Pt getting I&D for calf abscess today. NPO now for I&D. Avg po intakes >70%. Ht: 170.18 cm Wt: 71.214 kg BMI: 24.5 UBW: 72.575 kg on 09/24/22 Last BM: 04/28/24 (04/28/24 18:00) MNA: Sebastián Score: 18 Diet: 04/29/24 05:25 NPO Diet Diet Modifications: NPO Type: NPO after Midnight Nutrition Percent Meal Consumed 25% 04/28/24 17:49 Percent Meal Consumed 50% 04/28/24 12:39 Percent Meal Consumed 50% 04/27/24 17:46 Percent Meal Consumed 75% 04/27/24 12:00 Labs: RBC 3.75 X10^6/uL (4.5-5.9) L 04/29/24 05:51 Hgb 11.6 g/dL (13.5-17.5) L 04/29/24 05:51 Hct 35.2 % (41-53) L 04/29/24 05:51 Creatinine 1.04 mg/dL (0.66-1.25) 04/29/24 05:51 Lactate 1.9 mmol/L (0.7-2.1) 04/26/24 08:55 NT-Pro-B Natriuret Pep 3210 pg/mL (<450) H 04/25/24 05:13 Nutrition Diagnosis: Increased nutrient needs (protein) r/t healing aeb cellulitis Interventions: 1. Marco Antonio trial when diet advanced post I&D EER: 80-90 g protein (1.25 g/kg per healing) Monitoring/Evaluations: marco antonio tolerance, po intakes Electronically Signed by: Lia Otto 04/29/24 09:30 Clinical Dietitian [address] [address]
--- NOTE | 2024-04-29 11:33 | CM.DPNOTE ---
Addendum entered by AMELIA Gomez 04/29/24 15:32: Per Grace at [facility], able to accept pt's insurance. waiting on clinical review for wound care. Per Pamela at [facility], reviewing acceptance pending. DUMPER OPERATOR attempted to speak with pt/spouse x2, once they were both sleeping heavily in room second time pt was being transported down for surgery. DUMPER OPERATOR spoke with LISETH Ureña, ([phone]). Report that at this point, plan is likely to dc home with 24/7 Caregivers and for brother to take pt to OP appointments. Pending post op wound care need. asked we update her with WC need and likely date of dc LILY. P: pending wound care need and pt/family preference. CM team will continue to follow close SL Original Note: DCP Note DUMPER OPERATOR reviewed EMR. Per RN report, pt getting I&D today at 1600ish. Per provider, wound care need pending. Could dc as early as tomorrow. DUMPER OPERATOR spoke with Grace at [facility]. Agreed to review, would need [facility] address of brother's house. Per Pamela at [facility], still reviewing for acceptance. P: pending wound care need and pt/family preference. plan to 1) dc home with spouse/24/7 PP caregivers and OP PT/OT/wound care follow up 2) dc to brother's house in [facility] with [facility] to follow pending acceptance for PT/OT/RN or 3) dc to [facility] pending acceptance. if SNF, PASRR needed. CM team will continue to follow closely AMELIA Gomez
--- NOTE | 2024-04-29 12:16 | PM.PN.1 ---
Subjective Subjective Interval history: doing well, no complaints today Exam Vital Signs (past 8 hours): - 04/29/24 04:36 04/29/24 07:00 04/29/24 08:00 Temperature 98.6 F 97.8 F Pulse Rate 84 100 H Respiratory Rate 18 21 Blood Pressure 103/72 Pulse Oximetry 96 95 99 Oxygen Delivery Method Room Air Oxygen Flow Rate 2 0 0 04/29/24 08:46 04/29/24 12:00 Temperature 97.1 F L Pulse Rate 100 H 108 H Respiratory Rate 21 Blood Pressure 103/72 94/76 Pulse Oximetry 96 Oxygen Delivery Method Oxygen Flow Rate 2 Fraction of Inspired Oxygen 28 SaO2/FiO2 Ratio 350 Oxygen Delivery Method Room Air Oxygen Flow Rate 2 Narrative Exam Narrative: General: Elderly not in distress Lungs:? Normal effort Cardio: irregular, rapid MSK/Skin/Extremities: r lower leg bandaged, pitting edema in B/L feet Neuro: no focal deficits Psych:?pleasant Objective Labs 04/29/24 05:51 04/29/24 05:51 Labs: Laboratory Results - last 24 hr 04/28/24 04/29/24 17:15 05:51 WBC 7.0 RBC 3.75 L Hgb 11.6 L Hct 35.2 L MCV 93.7 MCH 30.9 MCHC 33.0 RDW 15.0 H Plt Count 200 Neut % (Auto) 65.8 Lymph % (Auto) 14.8 L [place] % (Auto) 13.7 Eos % (Auto) 3.8 Baso % (Auto) 1.9 Neut # (Auto) 4600 Lymph # (Auto) 1000 L [place] # (Auto) 1000 H Eos # (Auto) 300 Baso # (Auto) 100 PT 18.9 H INR 1.6 H Sodium 135 L Potassium 3.8 Chloride 101 Carbon Dioxide 29 BUN 29 H Creatinine 1.04 Estimated GFR > 60 BUN/Creatinine Ratio 27.9 H Glucose 121 H Calcium 8.7 Magnesium 2.4 H Total Bilirubin 1.3 AST 32 ALT 15 Alkaline Phosphatase 276 H Total Protein 6.0 L Albumin 3.0 L Globulin 3.0 Albumin/Globulin Ratio 1.0 PFSH Medical History Left foot drop Easy bruisability Fragile skin BCC (basal cell carcinoma of skin) GERD (gastroesophageal reflux disease) Pneumonia Numbness Sleep disorder Scoliosis Closed nondisplaced fracture of pelvis Mixed hyperlipidemia Diabetes Bilateral lower extremity edema Pacemaker CVA (cerebral vascular accident) Afib Surgical History Hx of arthroscopy of shoulder Hx of tonsillectomy Hx of hernia repair Status post bilateral cataract extraction Social History household members: spouse Smoking Status: Never smoker alcohol intake: current Assessment & Plan Assessment & Plan narrative: Relevant Past Medical History: CHpEF, Permanent A.fib on warfarin, 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 He lives with his who appears to provide much of his care. Patient has been dealing with chronic volume overload which has been attempted to be managed by escalation of his home diuretics without success likely due to chronic volume overload patient developed cellulitis of his right leg prompting presentation to our ED. He was treated with ceftriaxone +vanco. Vanco was D/C after MSSA grew on wound sample from right leg. U/S of leg showed likely abscess. Hospitalization has been complicated by A.fib w/RVR which has been managed by increasing dose of home metoprolol and generalized weakness requiring PT/OT therapies and likely placement as well as supratherapeutic INR delaying I&D by surgery. Clinical Status: Improved from admission,a.fib rate controlled remains vitally stable. Barrier to discharge remains I&D of abscess in right leg Assessment / Plan # Right Leg Cellulitis w/abscess secondary to MSSA and chronic volume overload # Permanent A.fib w/RVR - now rate controlled # Supratherapeutic INR ? resolved -Surgery Consulted planning on I&D today. Appreciate their support -D/C Ceftriaxone -Start Cefazolin q8hr. Will plan to transition to cephalexin on discharge. Duration of therapy 1wk. End of therapy 05/06. Day 1 -Metoprolol Succinate 100mg/am and 50mg bedtime time (home 100mg/day) -Consider transition from warfarin to Eliquis for easier monitoring. can likely resume after I & D today Home Medication Reconciliation Continued -? Dx: Chronic Hypoxic Respiratory Failure / Severe Pulm Htn / Interstitial Lung Disease?/ COPD? Rx: 2-3L O2 NC -? Dx: HFpEF. Rx: Lasix 40mg BID -? Dx: Neuropathy. Rx: Gabapentin 100mg BID -? Dx: Permanent A.fib. Rx: Metoprolol 100mg am and 50mg bedtime (home 100mg) Held -? Dx: HFpEF. Rx: Metolazone 2.5mg VTE Prophylaxis: Ambulation as tolerated, was previously on warfarin being held for surgical procedure CODE STATUS: DNR Discharge Planning Disposition/Anticipated Discharge Date: 04/30 or 05/01, either SNF or home with home care pending wound care needs Follow-up Appointments: PCP within 1wk, establish with cardiology within the next month to discuss HFpEF, Aortic Stenosis and volume management. Wound care Rx Changes: anticipate increased dose of metoprolol succinate from 100mg -> 150mg/day. possible d/c of metolazone. recommend starting patient on SGLT2i and spironolactone Follow-up Diagnostics: none as of now Time-Based Coding :: [TOTAL MINUTES] spent with patient and on the chart (including review of chart, obtaining history, exam, reviewing outside data, placing orders, documenting exam and treatment plan, and counseling patient) on [DATE].
[2024-04-29] MEDS: HYDROCODONE/ACET 5/325 TABLET 1 TAB PO (12:21)
--- NOTE | 2024-04-29 13:38 | OT.IPNOTE ---
Pt just wanting to rest and not been seen for OT. Pt to have I and D later this afternoon.
--- NOTE | 2024-04-29 15:22 | PM.PN.1 ---
Subjective Subjective Date Patient Seen: 04/29/24 Time Patient Seen: 15:22 Interval history: Ajay is ready for his wound debridement of his right leg. He believes the wound has been present for about 2 weeks although he is demented so the details are a little bit cloudy. 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 Exam Vital Signs (past 8 hours): - 04/29/24 08:00 04/29/24 08:46 04/29/24 12:00 Temperature 97.8 F 97.1 F L Pulse Rate 100 H 100 H 108 H Respiratory Rate 21 21 Blood Pressure 103/72 103/72 94/76 Pulse Oximetry 99 96 Oxygen Delivery Method Oxygen Flow Rate 0 2 04/29/24 15:03 Temperature 97.4 F L Pulse Rate 55 L Respiratory Rate 14 Blood Pressure 91/72 Pulse Oximetry 98 Oxygen Delivery Method Nasal Cannula Oxygen Flow Rate 2 Fraction of Inspired Oxygen 28 SaO2/FiO2 Ratio 350 Oxygen Delivery Method Nasal Cannula Oxygen Flow Rate 2 Narrative Exam Narrative: 3-4 cm circular open necrotic wound of the right medial leg Objective Labs 04/29/24 05:51 04/29/24 05:51 Labs: Laboratory Results - last 24 hr 04/28/24 04/29/24 17:15 05:51 WBC 7.0 RBC 3.75 L Hgb 11.6 L Hct 35.2 L MCV 93.7 MCH 30.9 MCHC 33.0 RDW 15.0 H Plt Count 200 Neut % (Auto) 65.8 Lymph % (Auto) 14.8 L [place] % (Auto) 13.7 Eos % (Auto) 3.8 Baso % (Auto) 1.9 Neut # (Auto) 4600 Lymph # (Auto) 1000 L [place] # (Auto) 1000 H Eos # (Auto) 300 Baso # (Auto) 100 PT 18.9 H INR 1.6 H Sodium 135 L Potassium 3.8 Chloride 101 Carbon Dioxide 29 BUN 29 H Creatinine 1.04 Estimated GFR > 60 BUN/Creatinine Ratio 27.9 H Glucose 121 H Calcium 8.7 Magnesium 2.4 H Total Bilirubin 1.3 AST 32 ALT 15 Alkaline Phosphatase 276 H Total Protein 6.0 L Albumin 3.0 L Globulin 3.0 Albumin/Globulin Ratio 1.0 PFSH Medical History Left foot drop Easy bruisability Fragile skin BCC (basal cell carcinoma of skin) GERD (gastroesophageal reflux disease) Pneumonia Numbness Sleep disorder Scoliosis Closed nondisplaced fracture of pelvis Mixed hyperlipidemia Diabetes Bilateral lower extremity edema Pacemaker CVA (cerebral vascular accident) Afib Surgical History Hx of arthroscopy of shoulder Hx of tonsillectomy Hx of hernia repair Status post bilateral cataract extraction Social History household members: spouse Smoking Status: Never smoker alcohol intake: current Assessment & Plan Assessment and plan (1) Cellulitis: Qualifiers: Site of cellulitis: extremity Site of cellulitis of extremity: lower extremity Laterality: right Qualified Code(s): L03.115 - Cellulitis of right lower limb Status: Acute Plan Ajay is an 88 year old man with a chronic open wound of the right leg. I mentioned to him and his brother and that it could be a squamous cell carcinoma or basal cell carcinoma. I plan to excise the necrotic appearing tissue and will send it off to path. I may place a wound vac depending on the size of the wound. I discussed the risks and benefits of the surgery with his brother Harley and his and they give consent to proceed. Time-Based Coding :: [TOTAL MINUTES] spent with patient and on the chart (including review of chart, obtaining history, exam, reviewing outside data, placing orders, documenting exam and treatment plan, and counseling patient) on [DATE].
[2024-04-29] MEDS: LACTATED RINGERS 1,000 ML 42 ML IV (15:44)
[2024-04-29] MEDS: BUPIVACAINE 0.5% (PF) 30 ML, EPINEPHrine 0.15 MG INJ (16:04)
--- NOTE | 2024-04-29 16:07 | SUR.OPER ---
Supine on padded OR bed, head on pillow, arms secured on padded arm boards at <90 degrees abduction, legs uncrossed, safety belt at abdomen, tape over blanket over lower non operative leg.
--- NOTE | 2024-04-29 16:20 | P.OP_ITS ---
Operative Date/Time/Diagnoses Date of procedure: 04/29/24 Time of procedure: 16:20 Pre-op diagnosis: Open wound of right leg Post-op diagnosis: same Procedure & Clinicians Procedure: Excision and debridement of right leg wound Wound vac placement Same procedure as scheduled: Yes Surgeon: Kip Ortega Seed Laboratory Assistant: Juliano Zavala Anesthesia Type: MAC +/- Operative Notes Procedure in detail: The patient is an 88-year-old man open wound of the right leg. Through his family members he was consented for debridement of the wound in the operating room and wound VAC placement. Patient was already on antibiotics. The patient was brought into the operating room and MAC was administered. The right leg was prepped and draped in the usual fashion and a time-out was performed. The wound measured 2.5 cm x 2 cm and was ovoid in shape. There was also some raised tissue 1 cm around the wound edge. We injected local anesthetic around the and performed a field block proximal to the wound. We made an ovoid incision around the wound. The initial specimen resected was a proximally 4 cm across. The tissue was quite necrotic deep to the wound and extending peripherally around the wound. We then went and took additional crescents of skin in the superior and posterior directions. We resected all necrotic tissue. The remaining tissue had blood supply. We injected some additional local anesthetic and then applied the wound VAC and with good effect. We sent some of the skin and wound tissue to path and some to microbiology. EBL: 5 mL Specimen: Right leg wound Post-operative Condition: stable Disposition: PACU
--- NOTE | 2024-04-29 16:52 | PT-IP ANOTE ---
pt out of his room for sx (I&D of LE wound). will f/u tomorrow.
[2024-04-29] MEDS: FUROSEMIDE 40 MG TABLET PO (17:51)
[2024-04-29] MEDS: SENNOSIDES 8.6 MG TABLET 17.2 MG PO (20:42)
[2024-04-29] MEDS: APIXABAN 5 MG TABLET PO (20:42)
[2024-04-29] MEDS: METOPROLOL ER 50 MG TABLET PO (20:42)
[2024-04-30] VITALS (11 sets, daily range): BP systolic 77–120; BP diastolic 51–87; PULSE 56–96; RESP 16–18; TEMP 36.2–37.1; O2SAT 95–99
[2024-04-30] MEDS: ACETAMINOPHEN 325 MG TABLET 650 MG PO ×3 (00:05→17:48)
[2024-04-30] MEDS: CEFAZOLIN 2 GM/100 ML PREMIX 100 ML IV ×3 (06:53→22:22)
[2024-04-30] MEDS: GABAPENTIN 100 MG CAPSULE PO ×2 (07:50→20:57)
[2024-04-30] MEDS: APIXABAN 5 MG TABLET PO ×2 (08:24→20:57)
[2024-04-30] MEDS: METOPROLOL ER 50 MG TABLET 100 MG PO (08:24)
[2024-04-30] MEDS: FUROSEMIDE 40 MG TABLET PO (08:24)
--- NOTE | 2024-04-30 14:45 | PT.IPTN ---
Current Diagnoses Cellulitis of right lower limb (04/24/24) Cellulitis, unspecified (04/24/24) Surgery Performed Operation Date: 04/29/24 15:45 Actual Procedures p Incision and Drainage Leg(Left) - Kip Ortega MD Physical Therapy Treatment Note M2 PT-IP Current Condition Start: 04/25/24 12:29 Freq: NEEDED Status: Active Protocol: Document 04/25/24 10:05 AB (Rec: 04/25/24 12:46 AB [id number]) Physical Therapy Current Condition Current Condition Evaluation Date 04/25/24 Treatment Diagnosis CHF; R LE cellulitis; difficulty in walking Onset Date 04/24/24 M3 PT-IP Subjective Start: 04/25/24 12:29 Freq: NEEDED Status: Active Protocol: Document 04/30/24 15:18 TS (Rec: 04/30/24 15:31 TS [id number]) Subjective Physical Therapy Visit Type Type Treatment Note Visit Start Time 14:45 Visit Stop Time 15:15 Number of CARE ASSISTANT Visits 2 Physical Therapy Visit Comments Patient Comments Pt found resting in bed, would like to get up and use the commode, he is agreeable to PT . Therapy Pain Assessment Pain When Pain Assessed At Rest Pain Present Pain Present Pain Reported M4 PT-IP Mobility and Gait Start: 04/25/24 12:29 Freq: NEEDED Status: Active Protocol: Document 04/30/24 15:18 TS (Rec: 04/30/24 15:31 TS [id number]) PT-Bed Mobility Assessment Supine to Sit Supine to Sit Contact Guard Assistance,1 Person Assistance,Head of Bed Elevated Sit to Supine Sit to Supine Contact Guard Assistance,1 Person Assistance Scooting Scooting to Edge of Bed Contact Guard Assistance PT-Transfer Assessment Sit to and From Stand Sit to and from Stand Minimal Assistance,Moderate Assistance,1 Person Assistance Equipment Transfer Assistive Device Gait Belt,Front Wheeled Walker Orthotic/Prosthetic Devices or Brace: No Transfers Transfer Destination Bed,Bedside Commode Transfer Technique Stand Pivot Transfer Ability Level of Assist Minimal Assistance,Moderate Assistance,1 Person Assistance Comments Mobility Comments Supine to sit CGA with HOB elevated. STS with FWW modA x1 for transfer to commode, pt has flexed posture and does not follow instructions well from therapist. Pt had BM and performed his own pericare. Stand pivot transfer back to bed Gali with use of FWW. Sit to supine into bed CGA. Pt scooted to HOB with cues for pushing through heels and elbows SBA. Pt was left in bed , all needs met. Gait Assessment Comments Gait Comments declined ambulation PT-Balance Assessment Sitting Balance and Reactions Static Sitting Balance Ability Normal Dynamic Sitting Balance Ability Good Standing Balance and Reactions Static Standing Balance Ability Fair Dynamic Standing Balance Ability Fair Device Used FWW M5 PT-IP Objective Assessments Start: 04/25/24 12:29 Freq: NEEDED Status: Active Protocol: Document 04/25/24 10:05 AB (Rec: 04/25/24 12:46 AB [id number]) Orientation Orientation/Cognition Level of Alertness Alert Orientation Name,Place,Situation Language Function Ability Hard of Hearing Safety Awareness Decreased Safety Awareness Memory Description Short Term Impaired Strength Lower Extremity Strength Assessment Bilaterally Impaired Knee 4-/5 Sensation Assessment Sensation Sensation Description Numbness Comments Sensation Comments chronic feet numbness per pt Muscle Tone Muscle Tone WNL Yes M6 PT-IP Treatment Start: 04/25/24 12:29 Freq: NEEDED Status: Active Protocol: Document 04/30/24 15:18 TS (Rec: 04/30/24 15:31 TS [id number]) Physical Therapy Treatment Education Education Provided Safety M7 PT-IP Assessment and Plan Start: 04/25/24 12:29 Freq: NEEDED Status: Active Protocol: Document 04/30/24 15:18 TS (Rec: 04/30/24 15:31 TS [id number]) PT Summary Assessment and Plan Potential Rehabilitation Potential Fair Summary Impairments Pain,ROM,Strength,Balance, Coordination,Sensation,Tone, Cognition,Bed Mobility, Transfers,Gait,Activity Tolerance Progress Towards Goals Slow Progress due to Pain,Slow Progress due to Medical Issues,Slow Progress due to Activity Tolerance Assessment Summary Ajay is making slow progress with his mobility today. He requires Gali-ModA for transfers with use of commode. He declined ambulation this session due to fatigue and pain in RLE. PT is recommending home with 12/03 assist vs SNF. Goals Bed Mobility Goal Standby Assistance Transfer Goal Standby Assistance,Front Wheeled Walker Gait Goal Standby Assistance,Front Wheel Walker Gait Distance 50 Other Goals improve bed mobility, transfers, ambulation using FWW ~ 150 ft mod I Days to Meet Goals 10 Frequency of Treatment Frequency Of Treatment Once a Day Treatment Plan Physical Therapy Treatment Plan Bed Mobility Training,Transfer Training,Gait Training, Therapeutic Exercise,Balance Retraining,Discharge Planning, Hot or Cold Pack,Neuromuscular Re-ed,Coordination Retraining ,Manual Therapy Precautions Other Precautions BP; falls Recommendations To Nursing Amount of Assist Needed 1 Person Assist Discharge Recommendations PT Discharge Recommendations Home with 24 Assist Available,SNF Rehab,Home vs SNF Transportation Needs at Discharge Private Vehicle,Wheelchair/ Cabulance
--- NOTE | 2024-04-30 14:53 | CM.DPNOTE ---
DCP Note OPTICAL LAB TECHNICIAN reviewed EMR. Per surgeon note, wound vac is on, for unknown amount of time. Wound consult placed Per Pamela at [facility], no bed availability. OPTICAL LAB TECHNICIAN started referral process with [facility] wound vacs, KATHARINE Bonilla kindly agreed to email Giovany referral information. Giovany reported he needs depth of wound for referral and provider order form to be completed and returned to [facility]. From [facility] [place] at [place], they can follow with wound vac. OPTICAL LAB TECHNICIAN notified Olivia at OP wound care about wound consult. She reports provider will see pt when they have availability in their OP schedule. OPTICAL LAB TECHNICIAN met with pt/spouse/brother Chip in room. Pt and family preference is now that if pt needs wound vac they would like to DC to SNF because they do not feel like they can manage it at home. Preference is to dc to [facility]. Per Jossie at [facility], pt's primary insurance is actually [employer] and Medicare Pt A is secondary and they are not contracted with [employer] CC Irene kindly agreed to place referral to [facility]. OPTICAL LAB TECHNICIAN lvm with Maddison at [facility]. OPTICAL LAB TECHNICIAN spoke with LISETH Ureña ([phone]). Reports she is working on getting DPOA for pt so she can help coordinate with ins companies better. Annoyed about [employer]. In agreement with dc to SNF where we get placement. Wound care provider assisted this OPTICAL LAB TECHNICIAN in completed provider order form. Depth of wound unknown. behind FS. P: SNF pending placement vs home with 24/7 CGs and OP f/u vs dc to brother's in [facility] to follow. PASRR needed. CM team will continue to follow closely [place]
--- NOTE | 2024-04-30 15:04 | PM.PN.1 ---
Subjective Subjective Interval history: his leg is hurting a bit after the surgical produre but other than that he is doing well. BP on the softer side today but he is asymptomatic Exam Vital Signs (past 8 hours): - 04/30/24 08:00 04/30/24 08:24 04/30/24 12:00 Temperature 97.8 F 97.1 F L Pulse Rate 61 61 78 Respiratory Rate 16 16 Blood Pressure 97/51 L 97/51 L 77/55 L Pulse Oximetry 99 99 Oxygen Flow Rate 3 Fraction of Inspired Oxygen 28 SaO2/FiO2 Ratio 350 Oxygen Delivery Method Nasal Cannula Oxygen Flow Rate 3 Narrative Exam Narrative: gen: elderly, in no distress lung: normal effort cardio: irregular, rate controlled ext/skin: wound vac on right lower leg, LE edema neuro: no focal deficits Objective Labs 04/29/24 05:51 04/29/24 05:51 PFS Medical History Left foot drop Easy bruisability Fragile skin BCC (basal cell carcinoma of skin) GERD (gastroesophageal reflux disease) Pneumonia Numbness Sleep disorder Scoliosis Closed nondisplaced fracture of pelvis Mixed hyperlipidemia Diabetes Bilateral lower extremity edema Pacemaker CVA (cerebral vascular accident) Afib Surgical History Hx of arthroscopy of shoulder Hx of tonsillectomy Hx of hernia repair Status post bilateral cataract extraction Social History household members: spouse Smoking Status: Never smoker alcohol intake: current Assessment & Plan Assessment & Plan narrative: Relevant Past Medical History: CHpEF, Permanent A.fib on warfarin, 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 He developed a wound / cellulitis of his right leg due to presumed chronic volume overload leading to presentation to ED and admission. Patient was treated with IV antibiotics (vancomycin + ceftriaxone which was narrowed to Cefazolin after wound culture showed MSSA). U/S of the area showed possible abscess formation leading to surgical consult for I&D. Hospitalization was further complicated A.fib with RVR which responded to increase dose of metoprolol and elevated INR which prompted vitamin k administration prior to I&D and switch to Eliquis per family wishes. ?? Assessment / Plan # Right Leg Wound s/p debridement. Soft Tissue Infection Vs Malignancy. MSSA on cultures obtained from wound -Surgery following appreciate their support -Wound vac in place -Wound care -Follow path / culture reports from surgical debridment -Cefazolin (day2). Transition to Cephalexin on discharge to complete 1wk of therapy #Permanent A.fib Rate controlled -Metoprolol XL 100mg AM and 50mg Bedtime. (home 100mg) -Eliquis 5mg BID transitioned from home warfarin due to patient / family preference #HFpEF Volume status acceptable -Lasix 40mg PO BID -Holding home metolazone 2.5mg/day #Chronic Hypoxic Respiratory Failure on 2-3L NC. Multifactorial in etiology likely due to Pulm HTN, COPD, Possible Interstitial Lung Disease -Continue NC to maintain oxygenation VTE Prophylaxis: Eliquis CODE STATUS: DNR Discharge Planning Disposition/Anticipated Discharge Date: 04/30 or 05/01, either SNF or home with home care pending wound care needs Follow-up Appointments: PCP within 1wk, establish with cardiology within the next month to discuss HFpEF, Aortic Stenosis and volume management. Wound care Rx Changes: anticipate increased dose of metoprolol succinate from 100mg -> 150mg/day. possible d/c of metolazone. recommend starting patient on SGLT2i and spironolactone Follow-up Diagnostics: none as of now Time-Based Coding :: [TOTAL MINUTES] spent with patient and on the chart (including review of chart, obtaining history, exam, reviewing outside data, placing orders, documenting exam and treatment plan, and counseling patient) on [DATE].
--- NOTE | 2024-04-30 15:24 | OT.IPNOTE ---
Pt just getting back to bed with CLIENT EXPERIENCE ADMINISTRATOR and therefore to check on pt tomorrow.
[2024-04-30] MEDS: SODIUM CHLORIDE 0.9% 500 ML IV (15:27)
--- NOTE | 2024-04-30 16:06 | P.CONS_ITS ---
History of Present Illness Consult details Date Patient Seen: 04/30/24 Time Patient Seen: 15:40 Chief complaint: sent by PCP, infected abcess inside lt calf Narrative: The patient is an 88-year-old male with COPD, atrial fibrillation, and chronic CHF who was admitted to the hospital with cellulitis of the right lower extremity. He underwent I&D of an open wound on the right lower extremity yesterday by Dr. Ortega and a wound VAC was placed. The patient is unsure how the wound developed. He is having some pain associated wound but he has not had any recent fever or chills. Cultures from admission grew Staphylococcus aureus and the patient has been treated with IV antibiotics. The patient does not have any prior history of having wounds or ulcers on his lower extremity but he does report having some intermittent lower extremity swelling. There is no history of DVT or vein disorders. Meds Home Medications and Allergies Home Medications Medication Instructions Recorded Confirmed Type fluorouracil 5 % topical cream 1 barbra topical PRN PRN skin cancer 04/30/17 04/29/24 History (Efudex) lesions ##0 glucosamine sulfate dipotassium Cl 1 cap PO DAILY ##0 04/30/17 04/29/24 History 500 mg-chondroitin 400 mg capsule (Glucosamine Sulfate 2 KCL-Chondroitin) multivitamin (Multiple Vitamins 1 tab PO QDAY ##0 04/30/17 04/29/24 History tablet) melatonin 5 mg tablet 5 mg PO QHS PRN Sleep 05/01/18 04/29/24 History omeprazole 20 mg tablet,delayed 20 mg PO BID 05/01/18 04/29/24 History release nitroglycerin 0.3 mg sublingual 0.3 mg sublingual Q5-15M PRN chest 10/02/19 04/29/24 Rx tablet pain #25 tabs gabapentin 100 mg capsule 100 mg PO BID PRN pain 04/27/24 04/27/24 History metolazone 2.5 mg tablet 2.5 mg PO DAILY 04/28/24 04/29/24 History metoprolol succinate 100 mg 100 mg PO DAILY 04/28/24 04/29/24 History tablet,extended release 24 hr furosemide 20 mg tablet 40 mg PO BID 04/29/24 04/29/24 History Allergies Allergy/AdvReac Type Severity Reaction Status Date / Time sulfite [SULFITE] Allergy Severe from foods Verified 09/24/22 19:56 Penicillins [PENICILLINS] Allergy Mild Rash Verified 09/24/22 19:56 Review of Systems Musculoskeletal Comments: Intermittent swelling of the lower extremities Integumentary/Breasts Comments: Easy bruising Exam Vital Signs (past 8 hours): - 04/30/24 08:24 04/30/24 12:00 Temperature 97.1 F L Pulse Rate 61 78 Respiratory Rate 16 Blood Pressure 97/51 L 77/55 L Pulse Oximetry 99 Fraction of Inspired Oxygen 28 SaO2/FiO2 Ratio 350 Oxygen Delivery Method Nasal Cannula Oxygen Flow Rate 3 Const Other: Elderly male who is alert and oriented and in no apparent distress Resp Other: Respirations unlabored Skin Other: Wound VAC in place medial aspect of right lower extremity Extrem Other: No edema Objective Labs 04/29/24 05:51 04/29/24 05:51 [facility] Medical History Left foot drop Easy bruisability Fragile skin BCC (basal cell carcinoma of skin) GERD (gastroesophageal reflux disease) Pneumonia Numbness Sleep disorder Scoliosis Closed nondisplaced fracture of pelvis Mixed hyperlipidemia Diabetes Bilateral lower extremity edema Pacemaker CVA (cerebral vascular accident) Afib Surgical History Hx of arthroscopy of shoulder Hx of tonsillectomy Hx of hernia repair Status post bilateral cataract extraction Social History household members: spouse Tobacco & Substance Use Smoking Status: Never smoker alcohol intake: current Assessment & Plan Assessment and plan (1) Unspecified open wound, right lower leg, initial encounter: Status: Acute Assessment & Plan narrative: Open wound right lower extremity with wound VAC in place. Continue negative pressure wound therapy for now and follow up at wound center after discharge for further management. Order arterial Doppler to assess circulatory status and start protein supplementation. Time-Based Coding :: 40 MINUTES] spent with patient and on the chart (including review of chart, obtaining history, exam, reviewing outside data, placing orders, documenting exam and treatment plan, and counseling patient) on [04/30/24].
[2024-04-30 16:27] LABS: Add Manual Diff / Slide Review NO; Basophils Absolute Auto 100 /uL (0-100); Basophils Percent Auto 0.8 % (0-2); Eosinophils Absolute Auto 300 /uL (0-450); Eosinophils Percent Auto 4.2 % (2-4); Hematocrit 36.3 % (41-53); Hemoglobin 12.1 g/dL (13.5-17.5); Lymphocytes Absolute Auto 1000 /uL (1100-4500); Lymphocytes Percent Auto 13.1 % (25-40); Mean Corpuscular HGB Conc 33.3 % (30-36); Mean Corpuscular Hemoglobin 31.5 PG (26-34); Mean Corpuscular Volume 94.6 fL (80-100); Monocytes Absolute Auto 900 /uL (0-900); Monocytes Percent Auto 11.3 % (3-14); Neutrophils Absolute Auto 5400 /uL (1500-7000); Neutrophils Percent Auto 70.6 % (50-75); Platelet Count 207 X10^3/uL (150-400); Red Blood Cell Count 3.84 X10^6/uL (4.5-5.9); Red Cell Distribution Width 15.4 % (11.6-14.8); White Blood Cell Count 7.6 X10^3/uL (4.5-11.0)
[2024-04-30 16:42] LABS: Blood Urea Nitrogen 33 mg/dL (9-20); Calcium 8.5 mg/dL (8.4-10.2); Carbon Dioxide 27 mmol/L (22-32); Chloride 100 mmol/L (98-107); Estimated Glomerular Filt Rate 59 mL/min (>60); Glucose 110 mg/dL (80-110); HEMOLYSIS < 15 (0-50); Sodium 135 mmol/L (137-145)
[2024-04-30] MEDS: SENNOSIDES 8.6 MG TABLET 17.2 MG PO (20:57)
[2024-04-30] MEDS: TRAMADOL 50 MG TABLET PO (22:22)
[2024-05-01] VITALS (14 sets, daily range): BP systolic 81–128; BP diastolic 52–86; PULSE 65–100; RESP 16–20; TEMP 36.1–37.2; O2SAT 94–99
--- NOTE | 2024-05-01 05:54 | P.PN_ITS ---
Subjective Subjective Interval history: feeling great today, very good mood Exam Vital Signs (past 8 hours): - 04/30/24 23:00 05/01/24 03:00 Temperature 98.8 F 98.9 F Pulse Rate 74 100 H Respiratory Rate 18 18 Blood Pressure 120/66 128/86 Pulse Oximetry 96 96 Oxygen Flow Rate 2 2 Fraction of Inspired Oxygen 28 SaO2/FiO2 Ratio 350 Oxygen Delivery Method Nasal Cannula Oxygen Flow Rate 2 Narrative Exam Narrative: gen: elderly, not in distress lung: normal effort cardio: irregular, normal rate skin: wound vac on right lower leg, b/l LE edema neuro: no focal deficits, alert and oriented Objective Labs 04/30/24 16:20 04/30/24 16:20 Labs: Laboratory Results - last 24 hr 04/30/24 16:20 WBC 7.6 RBC 3.84 L Hgb 12.1 L Hct 36.3 L MCV 94.6 MCH 31.5 MCHC 33.3 RDW 15.4 H Plt Count 207 Neut % (Auto) 70.6 Lymph % (Auto) 13.1 L [place] % (Auto) 11.3 Eos % (Auto) 4.2 H Baso % (Auto) 0.8 Neut # (Auto) 5400 Lymph # (Auto) 1000 L [place] # (Auto) 900 Eos # (Auto) 300 Baso # (Auto) 100 Sodium 135 L Potassium 4.0 Chloride 100 Carbon Dioxide 27 BUN 33 H Creatinine 1.18 Estimated GFR 59 L BUN/Creatinine Ratio 28.0 H Glucose 110 Lactate 2.0 Calcium 8.5 PFSH Medical History Left foot drop Easy bruisability Fragile skin BCC (basal cell carcinoma of skin) GERD (gastroesophageal reflux disease) Pneumonia Numbness Sleep disorder Scoliosis Closed nondisplaced fracture of pelvis Mixed hyperlipidemia Diabetes Bilateral lower extremity edema Pacemaker CVA (cerebral vascular accident) Afib Surgical History Hx of arthroscopy of shoulder Hx of tonsillectomy Hx of hernia repair Status post bilateral cataract extraction Social History household members: spouse Smoking Status: Never smoker alcohol intake: current Assessment & Plan Assessment & Plan narrative: Relevant Past Medical History: CHpEF, Permanent A.fib on warfarin, Likely Severe Group II/III Pulmonary HTN based on echo findings, Possible Severe Low Flow Low Gradient Aortic Stenosis, Dual Lead Transvenous Pacemaker, Chronic Hypoxic Respiratory Failure on 2-3L NC, Possible Intestinal Lung Disease, Cognitive Decline Hospital Course: 88 y.o. M with chronic LE edema that has been difficult to manage outpatient admitted with right leg wound presumed to be cellulitis without signs of systemic inflammation. Initial wound culture/swab revealed MSSA and U/S of the area showed a possible abscess so patient was taken to the OR by general surgery for I&D which did not reveal a true abscess or ady pus but instead necrotic tissue which was excised sent for culture and pathology to rule out potential derm malignancy. Wound vac was placed by surgery. Patient was treated with 1wk of appropriate IV antibiotics of his presumed cellulitis. Hospitalization was complicated by: - A.fib with RVR which took a few days to get under control but eventually was managed with increase in home Metoprolol with success. -Supratherapeutic INR despite holding patients warfarin for several days. Patient ended up getting vit k. Through family discussion it was decided to switch patient to Eliquis for ease of administration -Borderline hemodynamics have been present since admission. Per report patient was dizzy and orthostatic on admission this is despite being volume overloaded and without sepsis. He continued to have soft blood pressures the duration of his stay without significant improvement from admission. Assessment / Plan # Right Leg Wound s/p debridement. Soft Tissue Infection Vs Malignancy. MSSA grew on initial wound cultures. Patient taken to the OR for debridement on 04/29 and surgeon raised possibility that lesion could have been a possible squamous cell vs basal cell carcinoma. Per surgical report it did not seem there was day pus or obvious abscess as was initially suspect from U/S report -Wound care consulted appreciate their support. -Follow path / culture reports from surgical debridement -Patient received 7 days of IV antibiotic coverage including vancomycin -> ceftriaxone -> cefazolin. Will D/C antibiotics today. #Chronic A.fib #Supra-therapeutic INR ? resolved Rate controlled -Metoprolol XL 100mg AM and 50mg Bedtime. (home 100mg) -Eliquis 5mg BID transitioned from home warfarin due to patient / family preference #HFpEF #Multivalvular Disease (Severe Low Flow Low Gradient Aortic Stenosis, Severe TR, Moderate MR, Severe Mitral Annular Calcification) #Severe Pulmonary HTN. Likely group II/III Volume status acceptable at this time however given his valvular disease and pulm htn this will be likely nearly impossible to maintain. Soft hemodynamics the duration of this hospitalization. It it would be reasonable for PCP to address goals of care given his chronic conditions and advanced age. -Lasix 40mg PO BID (home dose) -Holding home metolazone 2.5mg/day #Chronic Hypoxic Respiratory Failure on 2-3L NC. Multifactorial in etiology likely due to Pulm HTN, COPD, Possible Interstitial Lung Disease -Continue NC to maintain oxygenation VTE Prophylaxis: Eliquis CODE STATUS: DNR Discharge Planning Disposition/Anticipated Discharge Date: Home vs SNF likely by end of week Follow-up Appointments: PCP 1wk, wound care as directed. Recommend cardiology follow up within 2wks Rx Changes: D/C metolazone 2.5mg, D/C Warfarin, Starting Eliquis. Increase of metoprolol to 50mg bedtime Follow-up Diagnostics: none at this time Time-Based Coding :: [TOTAL MINUTES] spent with patient and on the chart (including review of chart, obtaining history, exam, reviewing outside data, placing orders, documenting exam and treatment plan, and counseling patient) on [DATE].
[2024-05-01] MEDS: GABAPENTIN 100 MG CAPSULE PO ×2 (08:55→20:23)
[2024-05-01] MEDS: METOPROLOL ER 50 MG TABLET 100 MG PO (08:55)
[2024-05-01] MEDS: APIXABAN 5 MG TABLET PO ×2 (08:55→20:23)
[2024-05-01] MEDS: FUROSEMIDE 40 MG TABLET PO ×2 (09:21→18:01)
--- NOTE | 2024-05-01 12:50 | CM.DPC ---
DCP SNF Planning: Per MD, pt continues to have wound vac and wound care needs and working with PT/OT and likely once SNF secured and insurance SNF auth obtained pt can d/c. CALLIE spoke to Renetta at [facility] and they reviewed and willing to accept and submitted for [employer] SNF auth and Medicare should cover what [employer] does not. CALLIE updated Giovany at [facility] [phone] that currently plan is SNF and not home with home wound vac. They will continue to follow in case SNF not an option. CALLIE spoke to Dtr Mariza and updated on above and she confirms that currently they do not have a safe home plan in place and will need to be SNF. They are agreeable with [facility] but Dtr is in communication with [employer] and admissions at [facility] to determine if [facility] can accept pt with out of network [facility] paying the copay cost. But if [facility] cannot accept, they are agreeable to [facility]. PASRR completed. Plan; SW to follow for [facility] submission for SNF and then to confirm that plan is [facility] and not out of network with [facility] at d/c. Donna Chatterjee MSW
--- NOTE | 2024-05-01 16:00 | PT.IPTN ---
Current Diagnoses Cellulitis of right lower limb (04/24/24) Cellulitis, unspecified (04/24/24) Unspecified open wound, right lower leg, initial encounter (04/24/24) Surgery Performed Operation Date: 04/29/24 15:45 Actual Procedures p Incision and Drainage Leg(Left) - Kip Ortega MD Physical Therapy Treatment Note M2 PT-IP Current Condition Start: 04/25/24 12:29 Freq: NEEDED Status: Active Protocol: Document 04/25/24 10:05 AB (Rec: 04/25/24 12:46 AB [id number]) Physical Therapy Current Condition Current Condition Evaluation Date 04/25/24 Treatment Diagnosis CHF; R LE cellulitis; difficulty in walking Onset Date 04/24/24 M3 PT-IP Subjective Start: 04/25/24 12:29 Freq: NEEDED Status: Active Protocol: Document 05/01/24 16:28 TS (Rec: 05/01/24 16:40 TS [id number]) Subjective Physical Therapy Visit Type Type Treatment Note Visit Start Time 16:00 Visit Stop Time 16:25 Number of BELLOWS ASSEMBLER Visits 3 Physical Therapy Visit Comments Patient Comments Pt found resting in, is agreeable to PT. Therapy Pain Assessment Pain When Pain Assessed At Rest Pain Present Pain Present Pain Reported M4 PT-IP Mobility and Gait Start: 04/25/24 12:29 Freq: NEEDED Status: Active Protocol: Document 05/01/24 16:28 TS (Rec: 05/01/24 16:40 TS [id number]) PT-Bed Mobility Assessment Supine to Sit Supine to Sit Standby Assistance,Head of Bed Elevated Sit to Supine Sit to Supine Contact Guard Assistance,1 Person Assistance,Head of Bed Elevated PT-Transfer Assessment Sit to and From Stand Sit to and from Stand Contact Guard Assistance,1 Person Assistance Equipment Transfer Assistive Device Gait Belt,Front Wheeled Walker Orthotic/Prosthetic Devices or Brace: No Comments Mobility Comments Supine to sit SBA with HOB elevated, pt is slow to move. Wound vac attached to FWW for gait. He ambulated in the room ~60'SBA with assist for managing of lines. Sit to supine into the bed CGA for LE 's. Pt was left in the bed, all needs met. Gait Assessment Gait Gait Assistance Required: Standby Assistance Distance (Feet) 60 Assistive Devices Assistive Device Gait Belt,Front Wheeled Walker Orthotic/Prosthetic Devices or Brace: No Gait Deviations General Gait Pattern Antalgic,Decreased Stride Length,Decreased Feet Clearance,Flexed Trunk Factors Limiting Gait Function Factors Limiting Gait Function Decreased Activity Tolerance, Decreased Strength,Pain,Poor Balance,Poor Safety Awareness PT-Balance Assessment Sitting Balance and Reactions Static Sitting Balance Ability Normal Dynamic Sitting Balance Ability Good Standing Balance and Reactions Static Standing Balance Ability Fair Dynamic Standing Balance Ability Fair Device Used FWW M5 PT-IP Objective Assessments Start: 04/25/24 12:29 Freq: NEEDED Status: Active Protocol: Document 04/25/24 10:05 AB (Rec: 04/25/24 12:46 AB [id number]) Orientation Orientation/Cognition Level of Alertness Alert Orientation Name,Place,Situation Language Function Ability Hard of Hearing Safety Awareness Decreased Safety Awareness Memory Description Short Term Impaired Strength Lower Extremity Strength Assessment Bilaterally Impaired Knee 4-/5 Sensation Assessment Sensation Sensation Description Numbness Comments Sensation Comments chronic feet numbness per pt Muscle Tone Muscle Tone WNL Yes M6 PT-IP Treatment Start: 04/25/24 12:29 Freq: NEEDED Status: Active Protocol: Document 05/01/24 16:28 TS (Rec: 05/01/24 16:40 TS [id number]) Physical Therapy Treatment Education Education Provided Safety M7 PT-IP Assessment and Plan Start: 04/25/24 12:29 Freq: NEEDED Status: Active Protocol: Document 05/01/24 16:28 TS (Rec: 05/01/24 16:40 TS [id number]) PT Summary Assessment and Plan Potential Rehabilitation Potential Fair Summary Impairments Pain,ROM,Strength,Balance, Coordination,Sensation,Tone, Cognition,Bed Mobility, Transfers,Gait,Activity Tolerance Progress Towards Goals Slow Progress due to Pain Assessment Summary Ajay is making some progress with his mobility but is limited by pain. He continues to ambulate in the room ~60'SBA. He does well with bed mobility requiring SBA/CGA. His movements remain slow and he requires extra time to complete tasks. PT continues to recommend SNF vs Home. Goals Bed Mobility Goal Standby Assistance Transfer Goal Standby Assistance,Front Wheeled Walker Gait Goal Standby Assistance,Front Wheel Walker Gait Distance 50 Other Goals improve bed mobility, transfers, ambulation using FWW ~ 150 ft mod I Days to Meet Goals 10 Frequency of Treatment Frequency Of Treatment Once a Day Treatment Plan Physical Therapy Treatment Plan Bed Mobility Training,Transfer Training,Gait Training, Therapeutic Exercise,Balance Retraining,Discharge Planning, Hot or Cold Pack,Neuromuscular Re-ed,Coordination Retraining ,Manual Therapy Precautions Other Precautions BP; falls Recommendations To Nursing Amount of Assist Needed 1 Person Assist Discharge Recommendations PT Discharge Recommendations Home with 24 Assist Available,SNF Rehab,Home vs SNF Transportation Needs at Discharge Private Vehicle,Wheelchair/ Cabulance
--- NOTE | 2024-05-01 16:07 | PC.NURSE ---
Pt resting at intervals +Wound vac intact/patent. Condition remains essentially unchanged. Call light w/in reach, bed alarm on for pt safety. Continue w/plan of care.
--- NOTE | 2024-05-01 17:29 | OT.IPNOTE ---
Pt having dinner.
[2024-05-01] MEDS: SENNOSIDES 8.6 MG TABLET 17.2 MG PO (20:23)
[2024-05-01] MEDS: METOPROLOL ER 50 MG TABLET PO (20:24)
[2024-05-02 05:21] VITALS: BP 101/79; PULSE 75; RESP 18; TEMP 36.4; O2SAT 97
[2024-05-02 07:00] VITALS: O2SAT 98
[2024-05-02 09:00] VITALS: BP 94/65; PULSE 61; RESP 16; TEMP 36.7; O2SAT 96
[2024-05-02] MEDS: APIXABAN 5 MG TABLET PO (09:14)
[2024-05-02] MEDS: FUROSEMIDE 40 MG TABLET PO (09:14)
[2024-05-02] MEDS: GABAPENTIN 100 MG CAPSULE PO (09:14)
[2024-05-02] MEDS: SODIUM CHLORIDE 0.9% FLUSH 10 ML IV (09:15)
--- NOTE | 2024-05-02 09:36 | P.DS_ITS ---
History of Present Illness History of Present Illness Date Patient Seen: 05/02/24 Time Patient Seen: 09:00 Date of Onset of Symptoms: 04/24/24 Chief complaint: sent by PCP, infected abcess inside lt calf Narrative: The pt is a 88 yo with a hx of a. fib, COPD on 3 lpm NC at home and CHF who presents to the ER as a transfer from his PCP's office for a lesion on his leg and Rt arm that has been somoldering per his words for several months but over the past day started to ooze clear fluid. The pt did fall recently causing his lesion on his rt arm which he denies pain in. He is able to ambulate at home he says. The PCP recently increased the home lasix dose due to chronic swelling in the leg but reduced the dose due to low BP at home, the BP in the ER was 95/57 and the pt was dizzy. His last INR was also 8 several weeks ago Discharge Providers Provider Date of admission: 04/24/24 21:06 Discharge Date: 05/02/24 Primary care physician: Uli Antunez MD Consults: 04/24/24 21:31 Consult to Physical Therapy Evaluate & Treat Comment: Physician Instructions: Evaluate and Treat 04/24/24 21:32 Consult to Occupational Therapy Evaluate & Treat Comment: Physician Instructions: Evaluate and treat 04/25/24 14:23 Consult to Home Health Routine Comment: Reason For Exam: Home health services anticipated upon discharge 04/27/24 07:29 Consult to General Surgery Routine Comment: Consulting Provider: Gallo Iyer Reason for consultation: RLE abscess Has provider been notified: Yes 04/30/24 09:56 Consult to Wound Care Routine Comment: Prefer to d/c pt with woundvac/woundcare f/upoutpt Consulting Provider: Jeanette Wound [facility] Discharge provider: Manuel Barrios MD Summary Hospital Course Discharge Diagnosis: 1. Right medial calf wound, soft tissue infection versus malignancy, culturing MSSA with pathology pending 2. Chronic atrial fibrillation 3. Chronic anticoagulation 4. Chronic diastolic congestive heart failure 5. Multivalvular heart disease (severe low-flow gradient aortic stenosis, severe tricuspid regurgitation, moderate 0 annular calcification) 6. Chronic hypoxic respiratory failure, baseline oxygen 2-3 L nasal cannula oxygen 7. Pulmonary hypertension 8. COPD 9. Possible interstitial lung disease Hospital Course: The patient was admitted. Cultures grew MSSA. Patient was taken to the operating room for debridement on 04/29/2024 there was concern that send a possible squamous cell versus basal cell carcinoma. Pathology is pending at the time of discharge. The patient was treated for a total of 7 days of IV vancomycin-ceftriaxone cefazolin with an discontinued the prior to discharge. His atrial fibrillation was rate controlled with the addition of an evening dose of metoprolol 50 mg nightly, and warfarin was switched to Eliquis 5 mg twice daily per family preference. Status was acceptable though advised outpatient follow-up regarding maintaining volume status the setting of severe pulmonary hypertension and severe valvular heart disease. Close outpatient follow up of volume status with laboratory and clinical monitoring. He was discharged to half-way for ongoing wound care, physical and occupational therapy due to profound weakness, and anticipated to return home with his . Status at Discharge Cognitive/behavioral status at discharge: oriented Functional status at discharge: uses cane/walker Overall status at discharge: patient is not back to baseline Time Spent with Patient Time spent: Greater than 30 minutes Exam Vital Signs (past 8 hours): - 05/02/24 05:21 05/02/24 09:00 Temperature 97.6 F 98.0 F Pulse Rate 75 61 Respiratory Rate 18 16 Blood Pressure 101/79 94/65 Pulse Oximetry 97 96 Oxygen Flow Rate 2.5 3.5 Fraction of Inspired Oxygen 25 SaO2/FiO2 Ratio 384 Oxygen Delivery Method Nasal Cannula Oxygen Flow Rate 3.5 Narrative Exam Narrative: gen: elderly, not in distress lung: normal effort cardio: irregular, normal rate skin: wound vac on right lower leg, b/l LE edema neuro: no focal deficits, alert and oriented Objective Labs 04/30/24 16:20 04/30/24 16:20 [facility] Medical History Left foot drop Easy bruisability Fragile skin BCC (basal cell carcinoma of skin) GERD (gastroesophageal reflux disease) Pneumonia Numbness Sleep disorder Scoliosis Closed nondisplaced fracture of pelvis Mixed hyperlipidemia Diabetes Bilateral lower extremity edema Pacemaker CVA (cerebral vascular accident) Afib Surgical History Hx of arthroscopy of shoulder Hx of tonsillectomy Hx of hernia repair Status post bilateral cataract extraction Social History household members: spouse Smoking Status: Never smoker alcohol intake: current Discharge Plan Discharge Plan Patient Disposition: SNF Transfer to: [facility] Other facility: TBD Consult as needed: Dental, Hearing, Mental health, Podiatry and Vision Discharge orders & Medications Prescriptions: New acetaminophen 325 mg Tablet 650 mg PO Q6H PRN (Reason: Fever/Mild Pain (1-3)) Qty: 30 0RF Eliquis 5 mg Tablet 5 mg PO BID Qty: 60 0RF sennosides [senna] 8.6 mg Tablet 17.2 mg PO BEDTIME Qty: 30 0RF metoprolol succinate 50 mg Tablet Extended Release 24 Hr 50 mg PO BEDTIME Qty: 30 0RF tramadol 50 mg Tablet 50 mg PO TID PRN (Reason: Pain, Moderate (4-6)) Qty: 30 0RF Continued multivitamin [Multiple Vitamins] 1 EACH tablet 1 tab PO QDAY Qty: 0 Glucosamine Sulf-Chondroitin 500-400 mg Capsule 1 cap PO DAILY Qty: 0 fluorouracil [Efudex] 5 % cream 1 barbra Topical PRN PRN (Reason: skin cancer lesions) Qty: 0 omeprazole 20 mg Tablet,Delayed Release (Dr/Ec) 20 mg PO BID melatonin 5 MG tablet 5 mg PO QHS PRN (Reason: Sleep) nitroglycerin 0.3 mg tablet, sublingual 0.3 mg SL Q5-15M PRN (Reason: chest pain) Qty: 25 0RF Rx Instructions: until response; do not exceed 3 doses per episode, take for chest pain and or chest tightness with Shortness of breath gabapentin 100 mg capsule 100 mg PO BID PRN (Reason: pain) metolazone 2.5 mg tablet 2.5 mg PO DAILY metoprolol succinate 100 mg tablet extended release 24 hr 100 mg PO DAILY furosemide 20 mg Tablet 40 mg PO BID Follow up/Referrals: Uli Antunez MD [Primary Care Provider] - Skin/Wound/Dressing Care Report to your healthcare provider any signs of infection, such as:: chills, fever, night sweats, increased pain, unusual drainage and unusual redness Other wound treatment: Wound care follow-up/wound VAC care [facility] Rehab type: Physical therapy and Occupational therapy Visit Report/Discharge Packet Stand Alone Forms: Patient Portal/API Discharge Data Primary Care Provider: Uli Antunez MIPS - Admit I confirm the patient?s Advance Care Plan is present, Code status is documented, Surrogate decision maker is in patient?s record [If Yes, STOP here]: Yes MIPS - Meds 'Current medications' to include all prescriptions, [id number] products, herbals, cannabis/cannabidiol products, and vitamin/mineral/dietary (nutritional) supplements. I have utilized all available resources to obtain, update, or review the patient?s current medications. [If Yes, STOP here]: Yes MIPS - DC The patient has a history of heart transplant or Left Ventricular Assist Device (LVAD). If yes, STOP here.: No The patient has current or prior documentation of left ventricular ejection fraction (LVEF) less than or equal to 40%, or moderate or severely depressed left ventricular systolic function.: No A. The patient was prescribed or already taking an Angiotensin-Converting Enzyme (JHONY) Inhibitor, or Angiotensin Receptor Elizabeth (ARB).: No B. The patient was prescribed or already taking a beta-elizabeth. [If Yes to Both A & B, STOP here]: No Patient not prescribed/taking JHONY or ARB, no reason given.: No Patient not prescribed/taking beta-elizabeth, no reason given.: No PROFEE Charge Codes Discharge inpatient/observation: [id number]
--- NOTE | 2024-05-02 09:40 | PT.IPTN ---
Current Diagnoses Cellulitis of right lower limb (04/24/24) Cellulitis, unspecified (04/24/24) Unspecified open wound, right lower leg, initial encounter (04/24/24) Surgery Performed Operation Date: 04/29/24 15:45 Actual Procedures p Incision and Drainage Leg(Left) - Kip Ortega MD Physical Therapy Treatment Note M2 PT-IP Current Condition Start: 04/25/24 12:29 Freq: NEEDED Status: Active Protocol: Document 04/25/24 10:05 AB (Rec: 04/25/24 12:46 AB [id number]) Physical Therapy Current Condition Current Condition Evaluation Date 04/25/24 Treatment Diagnosis CHF; R LE cellulitis; difficulty in walking Onset Date 04/24/24 M3 PT-IP Subjective Start: 04/25/24 12:29 Freq: NEEDED Status: Active Protocol: Document 05/02/24 09:40 AB (Rec: 05/02/24 11:11 AB [id number]) Subjective Physical Therapy Visit Type Type Treatment Note Visit Start Time 09:40 Visit Stop Time 10:15 Number of HOSPITAL ACCOUNT LIAISON Visits 0 Physical Therapy Visit Comments Patient Comments agreeable to do PT M4 PT-IP Mobility and Gait Start: 04/25/24 12:29 Freq: NEEDED Status: Active Protocol: Document 05/02/24 09:40 AB (Rec: 05/02/24 11:11 AB [id number]) PT-Transfer Assessment Sit to and From Stand Sit to and from Stand Moderate Assistance,Maximum Assistance,1 Person Assistance ,Use of Upper Extremities Equipment Transfer Assistive Device Gait Belt,Front Wheeled Walker Orthotic/Prosthetic Devices or Brace: No Transfers Transfer Destination Chair Transfer Technique ambulated Transfer Ability Level of Assist Contact Guard Assistance, Minimal Assistance,1 Person Assistance,Use of Upper Extremities Comments Mobility Comments pt sitting on EOB with NAC after using bedside commode. pt agreed to do PT. BP in sittin/63. O2 sat with supplemental O2: 96% completed sit to stand from EOB mod to max A and max cues. pt tends to pull on FWW to get up. NAC assisted pt with hygiene care . pt ambulated in room using FWW ~ 75 ft CGA to min A and max cues. presents wtih stooped posture. pt sat on EOB . (+) SOB but O2 sat wtih supplemental O2:94%. pt agreed to sit on the chair. sit to stand from EOB mod to max A and max cues and ambulated to the chair using FWW CGA to min A. positioned pt on the chair. call light and table placed within reach. Gait Assessment Gait Gait Assistance Required: Contact Guard Assist,Minimum Assistance Distance (Feet) 75 Able to Maintain Weight Bearing Status Yes During Gait Assistive Devices Assistive Device Gait Belt,Front Wheeled Walker Orthotic/Prosthetic Devices or Brace: No Gait Deviations General Gait Pattern Decreased Stride Length, Decreased Feet Clearance Factors Limiting Gait Function Factors Limiting Gait Function Decreased Activity Tolerance, Decreased Strength,Difficulty Following Directions,Limited Range of Motion,Pain,Poor Balance,Poor Safety Awareness, Respiratory Distress M5 PT-IP Objective Assessments Start: 04/25/24 12:29 Freq: NEEDED Status: Active Protocol: Document 04/25/24 10:05 AB (Rec: 04/25/24 12:46 AB [id number]) Orientation Orientation/Cognition Level of Alertness Alert Orientation Name,Place,Situation Language Function Ability Hard of Hearing Safety Awareness Decreased Safety Awareness Memory Description Short Term Impaired Strength Lower Extremity Strength Assessment Bilaterally Impaired Knee 4-/5 Sensation Assessment Sensation Sensation Description Numbness Comments Sensation Comments chronic feet numbness per pt Muscle Tone Muscle Tone WNL Yes M6 PT-IP Treatment Start: 04/25/24 12:29 Freq: NEEDED Status: Active Protocol: Document 05/02/24 09:40 AB (Rec: 05/02/24 11:11 [id number]) Physical Therapy Treatment Education Education Provided Safety M7 PT-IP Assessment and Plan Start: 04/25/24 12:29 Freq: NEEDED Status: Active Protocol: Document 05/02/24 09:40 AB (Rec: 05/02/24 11:11 [id number]) PT Summary Assessment and Plan Potential Rehabilitation Potential Fair Summary Impairments Pain,ROM,Strength,Balance, Coordination,Sensation,Tone, Cognition,Bed Mobility, Transfers,Gait,Activity Tolerance Progress Towards Goals Slow Progress due to Medical Issues,Slow Progress due to Activity Tolerance,Slow Progress - Other Assessment Summary pt progressing slowly with mobility but continues to have decrease activity tolerance and decrease safety awareness affecting functional independence. pt requiring mod to max A for sit to stand and CGA to min A with ambulation using FWW. pt will benefit from SNF rehab to improve overall strength and mobility. Goals Bed Mobility Goal Standby Assistance Transfer Goal Standby Assistance,Front Wheeled Walker Gait Goal Standby Assistance,Front Wheel Walker Gait Distance 50 Other Goals improve bed mobility, transfers, ambulation using FWW ~ 150 ft mod I Days to Meet Goals 10 Frequency of Treatment Frequency Of Treatment Once a Day Treatment Plan Physical Therapy Treatment Plan Bed Mobility Training,Transfer Training,Gait Training, Therapeutic Exercise,Balance Retraining,Discharge Planning, Hot or Cold Pack,Neuromuscular Re-ed,Coordination Retraining ,Manual Therapy Precautions Other Precautions BP; falls, contact precautions ; wound vac RLE. Recommendations To Nursing Amount of Assist Needed 1 Person Assist Discharge Recommendations PT Discharge Recommendations SNF Rehab Transportation Needs at Discharge Private Vehicle,Wheelchair/ Cabulance
[2024-05-02 09:54] VITALS: BP 94/65; PULSE 61
--- NOTE | 2024-05-02 10:37 | CM.DPC ---
DCP Continued: Reviewed EMR and team rounds for pt?s medical status. Pt has been accepted at [facility] for SNF Rehab, [employer] insurance authorized SNF Rehab. Per [facility], pt will be transferred to their contracted wound vac and wound care team ([facility]). [facility] reports that pt can be transported at 1100 by [employer] wheelchair transport. DCP confirmed with [facility] that pt is not currently accepted due to insurance out of network, this was pt's family preference. DCP discussed the above with POA/Daughter in law, Adelita, who is agreeable to [facility] admission at discharge. DCP discussed discharge plan with pt RN, verbalized understanding. Plan: Pt to discharge to [facility] at 1100 by wheelchair transport. CM Team will continue to follow for coordination of discharge plans. MARIBETH Fernando
--- NOTE | 2024-05-02 10:55 | PC.NURSE ---
Patient is A&OX4, slightly forgetful. VSS, afebrile. SBP 90's, a.m. metoprolol held. Patient with woundvac in place. He reports very tender to touch but denied need for prn pain medications this a.m. He participates with PT at bedside. He is x1 assist to BSC and has a large BM this a.m. Per CM patient is transporting to [facility] of this a.m. approximately 11 a.m. Brother at bedside at time of discharge facilitating communication and transporting belongings for discharge. Wound Vac is disconnected and patient. Patient is transported via w/ch by [facility] facility designee. RN called report to Madiha PERERA at [facility] of .
--- NOTE | 2024-05-05 10:19 | CM.DPNOTE ---
DCP Note- post discharge follow up [employer] received phone call from ALYCE/LISETH Ureña ([phone]) reporting that she was 1) she has been unable to speak with someone from [facility] and was hoping for a different phone number than the front desk monitor and 2) reported that pt family was sent with the wrong person's discharge paperwork and asked for a copy of his discharge paperwork. Per chart review, pt had previously given permission to this CM team to share information with Adelita to coordinate the dc. [employer] agreed to email Adelita ([email or web address]) the discharge summary. Per Maddison, their front desk monitor dental receptionist is taking calls and gave permission to share the admission line if she cannot get through. [employer] shared the admission number with Adelita. Adelita reports she got the email and is appreciative of this [employer]'s efforts. AMELIA Gomez
== END 2024-05-02 10:50 | DRG 854 ==
LOC: ED 19:05 → AC 21:06
PROVIDERS: Hospitalist; Internal Medicine; Student in an Organized Health Care Education/Training Program; Surgery; Admitting Provider Internal Medicine; Emergency Provider Emergency Medicine; Family Provider Internal Medicine; PCP Internal Medicine; Referring Provider Emergency Medicine; Visit Provider Internal Medicine
PROC: 0JBN0ZZ Excision of Right Lower Leg Subcutaneous Tissue and Fascia, Open Approach (ICD-10-PCS; principal; 2024-04-29 15:45)
DX: A41.9 Sepsis, unspecified organism (principal); I48.21 Permanent atrial fibrillation; L03.115 Cellulitis of right lower limb; N17.9 Acute kidney failure, unspecified; I50.32 Chronic diastolic (congestive) heart failure; J96.11 Chronic respiratory failure with hypoxia; I96 Gangrene, not elsewhere classified; J84.9 Interstitial pulmonary disease, unspecified; J44.9 Chronic obstructive pulmonary disease, unspecified; R79.1 Abnormal coagulation profile; G62.9 Polyneuropathy, unspecified; B95.61 Methicillin susceptible Staphylococcus aureus infection as the cause of diseases classified elsewhere; I27.20 Pulmonary hypertension, unspecified; I35.0 Nonrheumatic aortic (valve) stenosis; I07.1 Rheumatic tricuspid insufficiency; K21.9 Gastro-esophageal reflux disease without esophagitis; Z66 Do not resuscitate; Z85.828 Personal history of other malignant neoplasm of skin; Z99.81 Dependence on supplemental oxygen; Z79.01 Long term (current) use of anticoagulants
CPT/HCPCS: 36415; 71045; 76882; 80048; 80053; 82550; 83605; 83690; 83735; 83880; 84484; 85025; 85610; 85730; 87040; 87070; 87075; 87077; 87147; 87186; 87205; 87797; 93005; 93010; 93306; 94760; 94762; 96365; 96367; 97116; 97129; 97163; 97166; 97530; 99284; J0171; J0690; J0696; J1170; J2250; J2590; J2704; J3010

== ENCOUNTER → 2024-05-28 15:07 | Outpatient (CLI) | payer OTHER, MEDICARE, SELFPAY ==
[2024-04-24 22:30] VITALS: BMI 24.5
== END ==
LOC: WC 15:08
PROVIDERS: Family Provider Internal Medicine; PCP Internal Medicine; Referring Provider Internal Medicine; Visit Provider Surgery
DX: L97.822 Non-pressure chronic ulcer of other part of left lower leg with fat layer exposed (principal); I73.9 Peripheral vascular disease, unspecified; T81.89XA Other complications of procedures, not elsewhere classified, initial encounter; S81.801A Unspecified open wound, right lower leg, initial encounter; S51.801A Unspecified open wound of right forearm, initial encounter; R60.0 Localized edema; M79.661 Pain in right lower leg; L98.8 Other specified disorders of the skin and subcutaneous tissue
CPT/HCPCS: 11042; 11045; 97605; 99213

== ENCOUNTER → 2024-06-02 15:38 | Outpatient (CLI) | payer OTHER, MEDICARE, SELFPAY ==
[2024-04-24 22:30] VITALS: BMI 24.5
== END ==
LOC: WC 15:39
PROVIDERS: Family Provider Internal Medicine; PCP Internal Medicine; Referring Provider Internal Medicine; Visit Provider Surgery
DX: T81.89XA Other complications of procedures, not elsewhere classified, initial encounter (principal); S81.801A Unspecified open wound, right lower leg, initial encounter; L97.822 Non-pressure chronic ulcer of other part of left lower leg with fat layer exposed; I87.2 Venous insufficiency (chronic) (peripheral); S51.811A Laceration without foreign body of right forearm, initial encounter; L98.8 Other specified disorders of the skin and subcutaneous tissue; R60.0 Localized edema; M79.661 Pain in right lower leg
CPT/HCPCS: 97605

== ENCOUNTER → 2024-06-04 14:27 | Outpatient (CLI) | payer OTHER, MEDICARE, SELFPAY ==
[2024-04-24 22:30] VITALS: BMI 24.5
== END ==
LOC: WC 14:29
PROVIDERS: Family Provider Internal Medicine; PCP Internal Medicine; Referring Provider Internal Medicine; Visit Provider Surgery
DX: T81.89XA Other complications of procedures, not elsewhere classified, initial encounter (principal); S81.801A Unspecified open wound, right lower leg, initial encounter; L98.8 Other specified disorders of the skin and subcutaneous tissue; S51.801A Unspecified open wound of right forearm, initial encounter; R60.0 Localized edema; I73.9 Peripheral vascular disease, unspecified
CPT/HCPCS: 11042; 11045; 97605

== ENCOUNTER → 2024-06-11 14:38 | Outpatient (CLI) | payer OTHER, MEDICARE, SELFPAY ==
[2024-04-24 22:30] VITALS: BMI 24.5
== END ==
LOC: WC 14:39
PROVIDERS: Family Provider Internal Medicine; PCP Internal Medicine; Referring Provider Internal Medicine; Visit Provider Surgery
DX: T81.89XA Other complications of procedures, not elsewhere classified, initial encounter (principal); L98.8 Other specified disorders of the skin and subcutaneous tissue; S81.001A Unspecified open wound, right knee, initial encounter; S81.801A Unspecified open wound, right lower leg, initial encounter; S51.811D Laceration without foreign body of right forearm, subsequent encounter; I73.9 Peripheral vascular disease, unspecified; R60.0 Localized edema; Z79.01 Long term (current) use of anticoagulants
CPT/HCPCS: 11042; 99213